=== PATIENT | female | born 1990 | race Caucasian/White ===

== ENCOUNTER 2023-08-17 04:10 | Emergency (ER) | payer OTHER, SELFPAY ==
[2023-08-17 04:11] VITALS: BP 135/87; PULSE 87; RESP 18; TEMP 36.2; O2SAT 98; BMI 29.2
--- NOTE | 2023-08-17 04:46 | EDS_ITS ---
HPI History of Present Illness Chief Complaint: Other, Pain/Inj Informant: patient Narrative Narrative: Patient is here with exacerbation of TMJ pain. She states over the last couple days she has been having more pain at her left TMJ. She has a history of this before. She uses a bite block but oftentimes it falls out of her mouth. She knows she has been grinding her teeth more the last few nights because she can just feel that. No other trauma injury or increased talking. Teeth are not really tender themselves. No swelling. No fevers or chills. No change in hearing. Patient states she did just increase her Zoloft dose. She knows that gives her a lot of bizarre dreams and she is thinking the dreams are causing her to chew her teeth more at night although she is not certain about that. She has a dentist appointment at 8:00 this morning which is only out 3 hours away. [facility] Medical History Depression TMJ (temporomandibular joint syndrome) Home Medications lorazepam 0.5 mg tablet 0.5 mg PO TID PRN PRN anxiety 08/17/23 [History Last Taken Unknown] naproxen 500 mg tablet (Naprosyn) 500 mg PO BID PRN pain #20 tabs 08/17/23 [Rx Last Taken Unknown] sertraline 50 mg tablet 50 mg PO DAILY 08/17/23 [History Last Taken Unknown] Allergy/AdvReac Type Severity Reaction Status Date / Time No Known Allergies Allergy Verified 08/17/23 04:16 Social History Smoking Status: Current every day smoker tobacco type: e-cigarettes ROS ROS ED Constitutional Constitutional ED: Denies chills or fever(s) Eyes Eyes: Denies change in vision ENT ENT ED: Reports other Details: See history of present illness. ; Denies ear pain, rhinorrhea or sore throat Cardiovascular Cardiovascular: Denies chest pain or palpitations Respiratory/Chest Respiratory/Chest: Denies cough or dyspnea Gastrointestinal Gastrointestinal: Denies nausea or vomiting Musculoskeletal Musculoskeletal: Denies neck pain Integumentary Denies abscess or rash Neurologic Neurologic: Denies headache(s), paresthesias or weakness Allergic/Immunologic Allergic/Immunologic ED: Denies urticaria EXAM Physical Exam Narrative Exam Narrative: General: Patient awake alert no acute distress. She is holding an ice pack to the left side of her cheek. HEENT: No visible swelling. No erythema. No rash. No vesicles. Auricle is normal. Tympanic membranes normal. No canal swelling. She does have tenderness to the left TMJ with some very mild palpable clicking. Teeth are not tender red or swollen. Neck is supple. No swelling mass or lymphadenopathy. Lungs are clear bilaterally and saturations are normal at 98% on room air showing no hypoxia. Heart is regular. I hear no murmur. Neurologically patient awake alert and appropriate. Skin: No rash noted. Const Vital Signs: 08/17/23 04:11 08/17/23 04:29 Temperature 97.2 F L Temperature Source Temporal Pulse Rate 87 Respiratory Rate 18 Respiratory Pattern Normal Blood Pressure 135/87 H Blood Pressure Mean 103 Pulse Ox 98 Oxygen Delivery Method Room Air MDM MDM MDM Narrative Medical decision making narrative: Patient has a history of TMJ. She is having symptoms consistent with this. We discussed avoiding chewing, gum, opening mouth widely, talking. She will talk to her dentist about a bite block that may stay in better. We discussed ice. We will get her started on nonsteroidals. Discharge Plan Triage Chief Complaint: Other, Pain/Inj ED Provider: Chito Almeida Dx/Rx/DC Orders Clinical Impression: TMJ tenderness, left Instructions: ED TMJ Syndrome Prescriptions: New naproxen [Naprosyn] 500 mg tablet 500 mg PO BID PRN (Reason: pain) Qty: 20 0RF No Action sertraline 50 mg tablet 50 mg PO DAILY Patient Comments: TAKE 1 TABLET BY MOUTH ONCE DAILY lorazepam 0.5 mg tablet 0.5 mg PO TID PRN PRN (Reason: anxiety) Patient Comments: TAKE 1 TABLET BY MOUTH THREE TIMES DAILY NEEDED FOR UP TO 7 DAYS Primary Care Provider: Percy Rhodes Referrals: Percy Rhodes MD [Primary Care Provider] - As Needed Activity Restrictions/Additional Instructions: Follow-up with your dental appointment as scheduled today Disposition Disposition: Home, Self Care
--- NOTE | 2023-08-17 05:18 | ED.RN ---
computer orders not crossing over, unable to scan meds naproxen 500mg given at 0515
--- NOTE | 2023-08-17 05:32 | ED.RN ---
prn norco 1 tab given per order. unable to scan med d/t the orders not crossing over to mar
[2023-08-17 05:34] VITALS: BP 115/90; PULSE 76; RESP 16; O2SAT 98
== END 2023-08-17 05:36 | disposition home or self-care (01) ==
PROVIDERS: Emergency Provider Emergency Medicine; PCP Family Medicine; Visit Provider Emergency Medicine
DX: M26.622 Arthralgia of left temporomandibular joint (principal); F17.290 Nicotine dependence, other tobacco product, uncomplicated
CPT/HCPCS: 99283

== ENCOUNTER 2025-06-14 05:31 | Inpatient (IN) | payer OTHER, SELFPAY ==
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
[2025-06-14] VITALS (20 sets, daily range): BP systolic 102–139; BP diastolic 66–96; PULSE 64–96; RESP 16–22; TEMP 36–36.6; O2SAT 95–100; BMI 36.4
--- OUTSIDE RECORDS SUMMARY | 2025-06-14 05:31 | XMS RPT_ITS | CCD ---
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 examination on: 01/30/2025 GA by U/S based upon: AC, BPD, Femur, HC GA by U/S 19 w + 6 d OLEG by U/S: 06/20/2025 Assigned: based on stated OLEG, selected on 01/30/2025 Assigned GA 19 w + 5 d Assigned OLEG: 06/21/2025 General Evaluation Cardiac activity present. FHR 146 bpm. movements: present. Presentation: cephalic Placenta: Placental site: anterior, fundal Umbilical cord: Cord vessels: 3 vessel cord Amniotic fluid: Amount of AF: normal amount. MVP 5.3 cm Growth Overview Exam date GA BPD (mm) HC (mm) AC (mm) FL (mm) HL (mm) EFW (g) 01/30/2025 19w 5d 46.3 62% 169.2 44% 154.2 74% 29.5 41% 30.5 67% 316 52% Biometry Standard BPD 46.3 mm 20w 0d 62% Hadlock OFD 59.8 mm 19w 3d 59% Nicolaides HC 169.2 mm 19w 4d 44% Landon Cerebellum tr 20.9 mm 19w 6d 75% Hill Nuchal fold 2.8 mm AC 154.2 mm 20w 4d 74% Hadlock Femur 29.5 mm 19w 2d 41% Landon Humerus 30.5 mm 20w 0d 67% Landon EFW 316 g 19w 5d 52% Hadlock EFW (lb) 0 lb EFW (oz) 11 oz EFW by: Hadlock (HC-AC-FL) Extended Insurance Auditor 5.9 mm CM 5.9 mm 79% Nicolaides Extremities / Bony Struc FL / HC 0.17 7% Hadlock Other Structures FHR 146 bpm Anatomy Cranium: normal Lateral ventricles: normal Choroid plexus: normal Midline falx: normal Cavum septi pellucidi: normal Cerebellum: normal Cisterna magna: normal Head / Neck Vermis: Normal but not required for a standard anatomy exam Neck: Normal but not required for a standard anatomy exam Nuchal fold: Normal but not required for a standard anatomy exam Lips: normal Profile: Normal but not required for a standard anatomy exam Nose: Normal but not required for a standard anatomy exam Face Maxilla: Normal but not required for a standard anatomy exam Mandible: Normal but not required for a standard anatomy exam Orbits: Normal but not required for a standard anatomy exam Lens: Normal but not required for a standard anatomy exam 4-chamber view: normal RVOT view: normal LVOT view: normal 3-vessel view: normal [id number] view: normal Heart / Thorax Situs: situs solitus (normal) Aortic arch view: Normal but not required for a standard anatomy exam SVC: Normal but not required for a standard anatomy exam IVC: Normal but not required for a standard anatomy exam Cardiac axis: normal Rt lung: Normal but not required for a standard anatomy exam Lt lung: Normal but not required for a standard anatomy exam Diaphragm: normal Cord insertion: normal Stomach: normal Kidneys: normal Bladder: normal Genitals: normal Abdomen Abdom. wall: normal Cervical spine: normal Thoracic spine: normal Lumbar spine: normal Sacral spine: normal Arms: normal Legs: normal Rt upper arm: normal Rt forearm: normal Rt hand: normal Rt fingers: normal Lt upper arm: normal Lt forearm: normal Lt hand: normal Lt fingers: normal Rt upper leg: normal Rt lower leg: normal Rt foot: normal Lt upper leg: normal Lt lower leg: normal Lt foot: normal sex: male Wants to know sex: yes Maternal Structures Uterus / Cervix Uterus: Visualized Cervix: Visualized Approach: Transabdominal Cervical length 34.5 mm Other: Patient declined transvaginal ultrasound for cervical length. Ovaries / Tubes / Adnexa Rt ovary: Visualized Lt ovary: Visualized Performed By: Humaira Berg, CINDY, RVT Read By: Sharona Avila M.D. MATERNAL MEDICINE [facility] Radiology Study observation (narrative) [facility] CARRIER SCREEN, STANDARDon 0 12-19-2024 CARRIER SCREEN RESULTS View results in Scanned Documents link when available. Normal [facility] Comment on above: Order Comment: Speci men Type: BLOOD SPECIMENOrdering Facility: [facility] Address: [address] [place] [address] Performed By: #### 6 30-4 #### [facility] CLIA [id number] [address] [place] [address] [place] CBC W Auto Differential pane l (Bld)on 12-19-2024 Basophils (Bld) [#/Vol] 0.03 10*3/uL Normal <0.11 [facility] Comment on above: Order Comment: Speci men Type: BLOOD SPECIMENOrdering Facility: [facility] Address: [address] [place] [address] Performed By: #### 5 7021-8 ####[facility] [id number] [place] [address] [place] Basophils/100 WBC (Bld) 0.4 % Normal [facility] Comment on above: Order Comment: Speci men Type: BLOOD SPECIMENOrdering Facility: [facility] Address: [address] [place] [address] Performed By: #### 5 7021-8 ####[facility] [id number] [place] [address] [place] Differential cell count method Nom (Bld) Auto Normal [facility] Comment on above: Order Comment: Speci men Type: BLOOD SPECIMENOrdering Facility: [facility] Address: [address] [place] [address] Performed By: #### 5 7021-8 ####[facility] [id number] [place] [address] [place] Eosinophils (Bld) [#/Vol] 0.07 10*3/uL Normal <0.46 [facility] Comment on above: Order Comment: Speci men Type: BLOOD SPECIMENOrdering Facility: [facility] Address: [address] [place] [address] Performed By: #### 5 7021-8 ####[facility]IA [id number] [place] [address] [place] Eosinophils/100 WBC (Bld) 0.9 % Normal [facility] Comment on above: Order Comment: Speci men Type: BLOOD SPECIMENOrdering Facility: [facility] Address: [address] [place] [address] Performed By: #### 5 7021-8 ####[facility] [id number] [place] [address] [place] Erythrocyte distribution width (RBC) [Ratio] 11.7 % Normal 11.5-15.0 [facility] Comment on above: Order Comment: Speci men Type: BLOOD SPECIMENOrdering Facility: [facility] Address: [address] [place] [address] Performed By: #### 5 7021-8 ####[facility]IA [id number] [place] [id number] [place] Hematocrit (Bld) [Volume fraction] 35.8 % Low 36.0-46.0 [facility] Comment on above: Order Comment: Speci men Type: BLOOD SPECIMENOrdering Facility: [facility] Address: [address] [place] [address] Performed By: #### 5 7021-8 ####[facility]IA [id number] [address] [address] [place] Hemoglobin (Bld) [Mass/Vol] 12.5 g/dL Normal 11.5-15.5 [facility] Comment on above: Order Comment: Speci men Type: BLOOD SPECIMENOrdering Facility: [facility] Address: [address] [place] [address] Performed By: #### 5 7021-8 ####[facility] [id number] [place] [address] [place] Immature granulocytes (Bld) [#/Vol] 0.03 10*3/uL Normal <0.10 [facility] Comment on above: Order Comment: Speci men Type: BLOOD SPECIMENOrdering Facility: [facility] Address: [address] [place] [address] Performed By: #### 5 7021-8 ####[facility] [id number] [place] [address] [place] Immature granulocytes/100 WBC (Bld) 0.4 % Normal [facility] Comment on above: Order Comment: Speci men Type: BLOOD SPECIMENOrdering Facility: [facility] Address: [address] [place] [address] Performed By: #### 5 7021-8 ####[facility] [id number] [place] [address] [place] Lymphocytes (Bld) [#/Vol] 1.60 10*3/uL Normal 1.00-4.00 [facility] Comment on above: Order Comment: Speci men Type: BLOOD SPECIMENOrdering Facility: [facility] Address: [address] [place] [address] Performed By: #### 5 7021-8 ####[facility]CLIA [id number] [place] [id number] [place] Lymphocytes/100 WBC (Bld) 19.7 % Normal [facility] Comment on above: Order Comment: Speci men Type: BLOOD SPECIMENOrdering Facility: [facility] Address: [address] [place] [address] Performed By: #### 5 7021-8 ####[facility] [id number] [place] [address] [place] MCH (RBC) [Entitic mass] 31.2 pg Normal 26.0-34.0 [facility] Comment on above: Order Comment: Speci men Type: BLOOD SPECIMENOrdering Facility: [facility] Address: [address] [place] [address] Performed By: #### 5 7021-8 ####[facility] [id number] [place] [address] [place] MCHC (RBC) [Mass/Vol] 34.9 g/dL Normal 30.5-36.0 [facility] Comment on above: Order Comment: Speci men Type: BLOOD SPECIMENOrdering Facility: [facility] Address: [address] [place] [address] Performed By: #### 5 7021-8 ####[facility] [id number] [place] [address] [place] MCV (RBC) [Entitic vol] 89.3 fL Normal 80.0-100.0 [facility] Comment on above: Order Comment: Speci men Type: BLOOD SPECIMENOrdering Facility: [facility] Address: [address] [place] [address] Performed By: #### 5 7021-8 ####[facility] [id number] [place] [address] [place] Monocytes (Bld) [#/Vol] 0.47 10*3/uL Normal <0.87 [facility] Comment on above: Order Comment: Speci men Type: BLOOD SPECIMENOrdering Facility: [facility] Address: [address] [place] [address] Performed By: #### 5 7021-8 ####[facility]CLIA [id number] [address], [place] [address] [place] Monocytes/100 WBC (Bld) 5.8 % Normal [facility] Comment on above: Order Comment: Speci men Type: BLOOD SPECIMENOrdering Facility: [facility] Address: [address] [place] [address] Performed By: #### 5 7021-8 ####[facility]IA [id number] [address], [place] [address] [place] Neutrophils (Bld) [#/Vol] 5.94 10*3/uL Normal 1.45-7.50 [facility] Comment on above: Order Comment: Speci men Type: BLOOD SPECIMENOrdering Facility: [facility] Address: [address] [place] [address] Performed By: #### 5 7021-8 ####[facility]IA [id number] [place] [address] [place] Neutrophils/100 WBC (Bld) 72.8 % Normal [facility] Comment on above: Order Comment: Speci men Type: BLOOD SPECIMENOrdering Facility: [facility] Address: [address] [place] [address] Performed By: #### 5 7021-8 ####[facility]IA [id number] [place] [address] [place] Nucleated RBC (Bld) [#/Vol] 10*3/uL Normal <0.01 [facility] Comment on above: Order Comment: Speci men Type: BLOOD SPECIMENOrdering Facility: [facility] Address: [address] [place] [address] Performed By: #### 5 7021-8 ####[facility]CLIA [id number] [address], [facility] [place] Nucleated RBC/100 WBC (Bld) [Ratio] 0.0 /100 WBC Normal [facility] Comment on above: Order Comment: Speci men Type: BLOOD SPECIMENOrdering Facility: [facility] Address: [address] [place] [address] Performed By: #### 5 7021-8 ####[facility]IA [id number] [address] [address] [place] Platelet mean volume (Bld) [Entitic vol] 11.3 fL Normal 9.0-12.7 [facility] Comment on above: Order Comment: Speci men Type: BLOOD SPECIMENOrdering Facility: [facility] Address: [address] [place] [address] Performed By: #### 5 7021-8 ####[facility]IA [id number] [place] [address] [place] Platelets (Bld) [#/Vol] 293 10*3/uL Normal 150-400 [facility] Comment on above: Order Comment: Speci men Type: BLOOD SPECIMENOrdering Facility: [facility] Address: [address] [place] [address] Performed By: #### 5 7021-8 ####[facility]IA [id number] [place] [address] [place] RBC (Bld) [#/Vol] 4.01 10*6/uL Normal 3.90-5.20 [facility] Comment on above: Order Comment: Speci men Type: BLOOD SPECIMENOrdering Facility: [facility] Address: [address] [place] [address] Performed By: #### 5 7021-8 ####[facility]IA [id number] [place] [address] [place] WBC (Bld) [#/Vol] 8.14 10*3/uL Normal 3.70-11.00 [facility] Comment on above: Order Comment: Speci men Type: BLOOD SPECIMENOrdering Facility: [facility] Address: [address] [place] [address] Performed By: #### 5 7021-8 ####[facility]CL[facility] [id number] [place] [address] [place] [facility] Comprehensive metabolic 2000 panelon 12-19-2024 Albumin [Mass/Vol] 4.1 g/dL Normal 3.9-4.9 [facility] Comment on above: Order Comment: Speci men Type: BLOOD SPECIMENOrdering Facility: [facility] Address: [address] [place] [address] Performed By: #### 6 30-4 #### [facility] CLIA [id number] [address] [place] [address] [place] ALP [Catalytic activity/Vol] 131 U/L High 34-123 [facility] Comment on above: Order Comment: Speci men Type: BLOOD SPECIMENOrdering Facility: [facility] Address: [address] [place] [address] Performed By: #### 6 30-4 #### [facility] CLIA [id number] [address] [place] [address] [place] ALT [Catalytic activity/Vol] 80 U/L High 7-38 [facility] Comment on above: Order Comment: Speci men Type: BLOOD SPECIMENOrdering Facility: [facility] Address: [address] [place] [address] Performed By: #### 6 30-4 #### [facility] CLIA [id number] [address] [place] [address] [place] Anion gap [Moles/Vol] 8 mmol/L Normal 8-15 [facility] Comment on above: Order Comment: Speci men Type: BLOOD SPECIMENOrdering Facility: [facility] Address: [address] [place] [address] Performed By: #### 6 30-4 #### [facility] CLIA [id number] [address] [place] [address] [place] AST [Catalytic activity/Vol] 63 U/L High 13-35 [facility] Comment on above: Order Comment: Speci men Type: BLOOD SPECIMENOrdering Facility: [facility] Address: [address] [place] [address] Performed By: #### 6 30-4 #### [facility] CLIA [id number] [address] [place] [address] [place] Bilirubin [Mass/Vol] 0.3 mg/dL Normal 0.2-1.3 [facility] Comment on above: Order Comment: Speci men Type: BLOOD SPECIMENOrdering Facility: [facility] Address: [address] [place] [address] Performed By: #### 6 30-4 #### [facility] CLIA [id number] [address] [place] [address] [place] Calcium [Mass/Vol] 9.4 mg/dL Normal 8.5-10.2 [facility] Comment on above: Order Comment: Speci men Type: BLOOD SPECIMENOrdering Facility: [facility] Address: [address] [place] [address] Performed By: #### 6 30-4 #### [facility] CLIA [id number] [address] [place] [address] [place] Chloride [Moles/Vol] 100 mmol/L Normal 98-107 [facility] Comment on above: Order Comment: Speci men Type: BLOOD SPECIMENOrdering Facility: [facility] Address: [address] [place] [address] Performed By: #### 6 30-4 #### [facility] CLIA [id number] [address] [place] [address] [place] CO2 [Moles/Vol] 24 mmol/L Normal 22-30 [facility] Comment on above: Order Comment: Speci men Type: BLOOD SPECIMENOrdering Facility: [facility] Address: [address] [place] [address] Performed By: #### 6 30-4 #### [facility] CLIA [id number] [address] [place] [address] [place] Creatinine [Mass/Vol] 0.63 mg/dL Normal 0.58-0.96 [facility] Comment on above: Order Comment: Kirk men Type: BLOOD SPECIMENOrdering Facility: [facility] Address: [address] [place] [address] Performed By: #### 6 30-4 #### [facility] CLIA [id number] [address] [place] [address] [place] Creatinine and Glomerular filtration rate.predicted panel (S/P/Bld) 120 mL/min/1.73m??? Normal >=60 [facility] Comment on above: Order Comment: Kirk arellano Type: BLOOD SPECIMENOrdering Facility: [facility] Address: [address] [place] [address] Result Comment: Eileen mated Glomerular Filtration Rate (eGFR) is calculated using the 2020 CKD-EPI creatinine equation. This equation utilizes serum creatinine, sex, and age as parameters. The creatinine assay has traceable calibration to isotope dilution-mass spectrometry. Refer to KDIGO guidelines for clinical interpretation. In patients with unstable renal function, e.g. those with acute kidney injury, the eGFR may not accurately reflect actual GFR. Performed By: #### 6 30-4 #### [facility] CLIA [id number] [address] [place] [address] [place] Glucose [Mass/Vol] 106 mg/dL High 74-99 [facility] Comment on above: Order Comment: Carlosi men Type: BLOOD SPECIMENOrdering Facility: [facility] Address: [address] [place] [address] Result Comment: The [place] Diabetes [employer] (ADA) provides guidance for cutoff values for fasting glucose and random glucose. The ADA defines fasting as no caloric intake for at least 8 hours. Fasting plasma glucose results between 100 to 125 mg/dL indicate increased risk for diabetes (prediabetes). Fasting plasma glucose results greater than or equal to 126 mg/dL meet the criteria for diagnosis of diabetes. In the absence of unequivocal hyperglycemia, results should be confirmed by repeat testing. In a patient with classic symptoms of hyperglycemia or hyperglycemic crisis, random plasma glucose results greater than or equal to 200 mg/dL meet the criteria for diagnosis of diabetes. Reference: Standards of Medical Care in Diabetes 2016, [place] [employer]. Diabetes Care. 2016.39(Suppl 1). Performed By: #### 6 30-4 #### [facility] CLIA [id number] [address] [place] [address] [place] Potassium [Moles/Vol] 3.7 mmol/L Normal 3.7-5.1 [facility] Comment on above: Order Comment: Speci men Type: BLOOD SPECIMENOrdering Facility: [facility] Address: [address] [place] [address] Performed By: #### 6 30-4 #### [facility] CLIA [id number] [address] [place] [address] [place] Protein [Mass/Vol] 7.4 g/dL Normal 6.3-8.0 [facility] Comment on above: Order Comment: Speci men Type: BLOOD SPECIMENOrdering Facility: [facility] Address: [address] [place] [address] Performed By: #### 6 30-4 #### [facility] CLIA [id number] [address] [place] [address] [place] Sodium [Moles/Vol] 132 mmol/L Low 136-144 [facility] Comment on above: Order Comment: Speci men Type: BLOOD SPECIMENOrdering Facility: [facility] Address: [address] [place] [address] Performed By: #### 6 30-4 #### [facility] CLIA [id number] [address] [place] [address] [place] Urea nitrogen [Mass/Vol] 7 mg/dL Normal 7-21 [facility] Comment on above: Order Comment: Speci men Type: BLOOD SPECIMENOrdering Facility: [facility] Address: [address] [place] [address] Performed By: #### 6 30-4 #### [facility] CLIA [id number] [address] [place] [address] [place] HBV surface Ag Ser Qlon 11-28 HBV surface Ag Ql (S) Negative Normal Negative [facility] Comment on above: Order Comment: Speci men Type: BLOOD SPECIMENOrdering Facility: [facility] Address: [address] [place] [address] Performed By: #### 6 30-4 #### [facility] CLIA [id number] [address] [place] [address] [place] HCV Ab Ser Qlon 12-19-2024 HCV Ab Ql (S) Negative Normal Negative [facility] Comment on above: Order Comment: Speci men Type: BLOOD SPECIMENOrdering Facility: [facility] Address: [address] [place] [address] Result Comment: The result suggests no evidence of infection with Hepatitis C virus. Should recent infection be suspected, repeat testing may be considered 4-6 weeks after this draw. Performed By: #### 1 6128-1 ####[facility] [id number] [place] [address] [place] HIV 1+2 Ab IA Qlon HIV 1 and 2 Ab IA.rapid Nom (S/P/Bld) Normal [facility] Comment on above: Order Comment: Speci men Type: BLOOD SPECIMENOrdering Facility: [facility] Address: [address] [place] [address] Result Comment: Test not indicated. Performed By: #### 6 30-4 #### [facility] CLIA [id number] [address] [place] [address] [place] HIV 1+2 Ab+HIV1 p24 Ag IA Ql Non-Reactive Normal Nonreactive [facility] Comment on above: Order Comment: Speci men Type: BLOOD SPECIMENOrdering Facility: [facility] Address: [address] [place] [address] Performed By: #### 6 30-4 #### [facility] CLIA [id number] [address] [place] [address] [place] HIV immunoassay testing algorithm interpretation (S/P/Bld) [Interp] Normal [facility] Comment on above: Order Comment: Speci men Type: BLOOD SPECIMENOrdering Facility: [facility] Address: [address] [place] [address] Result Comment: No e vidence of HIV-1 or HIV-2 infection. Should recent infection be suspected, repeat testing may be considered 2-3 weeks after this draw. [place] Rev. Code 3701.243(E): This information has been disclosed to you from confidential records protected from disclosure by state law. ???You shall make no further disclosure of this information without the specific, written, and informed release of the individual to whom it pertains or as otherwise permitted by state law. A general authorization for the release of medical or other information is not sufficient for the purpose of the release of HIV test results or diagnoses. Performed By: #### 6 30-4 #### [facility] CLIA [id number] [address] [place] [address] [place] HbA1c (Bld)on 12-19-2024 Average glucose Estimated from glycated hemoglobin (Bld) [Mass/Vol] 71 mg/dL Normal [facility] Comment on above: Order Comment: Speci men Type: BLOOD SPECIMENOrdering Facility: [facility] Address: [address] [place] [address] Result Comment: eAG: (Estimated average glucose) is a calculated value from HgbA1c and is technical sales representatives of the average blood glucose level in the last 2-3 month period. Performed By: #### 5 5454-3 ####[facility] [id number] [place] [address] [place] HbA1c (Bld) [Mass fraction] 4.1 % Low 4.3-5.6 [facility] Comment on above: Order Comment: Speci men Type: BLOOD SPECIMENOrdering Facility: [facility] Address: [address] [place] [address] Result Comment: [place] Diabetes Association guidelines indicate that patients with HgbA1c in the range 5.7-6.4% are at increased risk for development of diabetes, and intervention by lifestyle modification may be beneficial. HgbA1c greater or equal to 6.5% is considered diagnostic of diabetes. Performed By: #### 5 5454-3 ####[facility] [id number] [place] [address] [place] [id number] PLUSon 12-19-2024 Cell-free DNA./Cell-free DNA.total Dosage of chromosome-specific cfDNA (cfDNA) [Molar fraction] 9% Normal [facility] Comment on above: Order Comment: Speci men Type: BLOOD SPECIMENOrdering Facility: [facility] Address: [address] [place] [address] Performed By: #### 6 30-4 #### [facility] CLIA [id number] [address] [place] [address] [place] Chr 13+18+21+X+Y aneuploidy Dosage of chromosome-specific cfDNA Ql (cfDNA) Negative Normal [facility] Comment on above: Order Comment: Speci men Type: BLOOD SPECIMENOrdering Facility: [facility] Address: [address] [place] [address] Performed By: #### 6 30-4 #### [facility] CLIA [id number] [address] [place] [address] [place] Chr 21 trisomy Dosage of chromosome-specific cfDNA Ql (cfDNA) Negative Normal [facility] Comment on above: Order Comment: Speci men Type: BLOOD SPECIMENOrdering Facility: [facility] Address: [address] [place] [address] Performed By: #### 6 30-4 #### [facility] CLIA [id number] [address] [place] [address] [place] Chr X and Y aneuploidy risk Sequencing Ql (cfDNA) [Interp] Not detected Normal [facility] Comment on above: Order Comment: Speci men Type: BLOOD SPECIMENOrdering Facility: [facility] Address: [address] [place] [address] Result Comment: Not Detected Not Detected Performed By: #### 6 30-4 #### [facility] CLIA [id number] [address] [place] [address] [place] Citation Cameron (Reference lab test) Comment Normal [facility] Comment on above: Order Comment: Speci men Type: BLOOD SPECIMENOrdering Facility: [facility] Address: [address] [place] [address] Result Comment: 1. P spenser HEARD et al. Marixa Med. 2012;14(3):296-305. 2. Alok VALLADARES et al. Prenat Diag. 2013;33(6):591-597. 3. Pablo C, et al. Clin Chem. 2015 Apr;61(4):608-616. 4. Rocio HEARD, et al. [place]a Med. 2011;13(11):913-920. 5. ACOG/SMFM Practice Bulletin No. 226, May 2020. Performed By: #### 6 30-4 #### [facility] CLIA [id number] [address] [place] [address] [place] Gestational age Estimated from conception date Daly Normal [facility] Comment on above: Order Comment: Speci men Type: BLOOD SPECIMENOrdering Facility: [facility] Address: [address] [place] [address] Performed By: #### 6 30-4 #### [facility] CLIA [id number] [address] [place] [address] OF [place] GESTATIONALAGE AGE > OR = 9W Yes Normal [facility] Comment on above: Order Comment: Speci men Type: BLOOD SPECIMENOrdering Facility: [facility] Address: [address] [place] [address] Performed By: #### 6 30-4 #### [facility] CLIA [id number] [address] [place] [address] Laboratory comment Cameron (Report) Comment Normal [facility] Comment on above: Order Comment: Specarmando arellano Type: BLOOD SPECIMENOrdering Facility: [facility] Address: [address] [place] [address] Result Comment: The MaterniT(R) 21 PLUS laboratory-developed test (LDT) analyzes circulating cell-free DNA from a maternal blood sample. This test is used for screening purposes and not diagnostic. Clinical correlation is recommended. Validation data on twin pregnancies is limited and the ability of this test to detect aneuploidy in higher multiple gestations has not yet been validated. Performed By: #### 6 30-4 #### [facility] CLIA [id number] [address] [place] [address] co founder and director name Nom (Provider) Comment Normal [facility] Comment on above: Order Comment: Kirk arellano Type: BLOOD SPECIMENOrdering Facility: [facility] Address: [address] [place] [address] Result Comment: This specimen showed an expected representation of chromosome 21, 18 and 13 material. Clinical correlation is suggested. Comment Thomas Concepcion MD, PhD, Director, [facility] Performed By: #### 6 30-4 #### [facility] CLIA [id number] [address] [place] [address] LIMITATIONS OF THE TEST Comment Normal [facility] Comment on above: Order Comment: Kirk arellano Type: BLOOD SPECIMENOrdering Facility: [facility] Address: [address] [place] [address] Result Comment: Jv peña the results of these tests are highly reliable, discordant results, including inaccurate sex prediction, may occur due to placental, maternal, or mosaicism or neoplasm; vanishing twin; prior maternal organ transplant; or other causes. These tests are screening tests and not diagnostic; they do not replace the accuracy and precision of diagnosis with CVS or amniocentesis. A patient with a positive test result should be referred for genetic counseling and offered invasive diagnosis for confirmation of test results.[5] The results of this testing, including the benefits and limitations, should be discussed with a qualified healthcare provider. management decisions, including termination of the , should not be based on the results of these tests alone. The healthcare provider is responsible for the use of this information in the management of their patient. Sex chromosomal aneuploidies are not reportable for known multiple gestations. A negative result does not ensure an unaffected nor does it exclude the possibility of other chromosomal abnormalities or defects which are not a part of these tests. An uninformative result may be reported, the causes of which may include, but are not limited to, insufficient sequencing coverage, noise or artifacts in the region, amplification or sequencing bias, or insufficient fraction. These tests are not intended to identify pregnancies at risk for neural tube defects or ventral wall defects. Testing for whole chromosome abnormalities (including sex chromosomes) and for subchromosomal abnormalities could lead to the potential discovery of both and maternal genomic abnormalities that could have major, minor, or no, clinical significance. Evaluating the significance of a positive or a non-reportable result may involve both invasive testing and additional studies on the mother. Such investigations may lead to a diagnosis of maternal chromosomal or subchromosomal abnormalities, which on occasion may be associated with benign or malignant maternal neoplasms. These tests may not accurately identify triploidy, balanced rearrangements, or the precise location of subchromosomal duplications or deletions; these may be detected by diagnosis with CVS or amniocentesis. The ability to report results may be impacted by maternal BMI, maternal weight, maternal systemic lupus erythematosus (SLE) and/or by certain pharmaceutical agents such as low molecular weight heparin (for example: Lovenox(R), Xaparin(R), Clexane(R) and Fragmin(R)). Performed By: #### 6 30-4 #### [facility] CLIA [id number] [address] [place] [address] [place] Monosomy X risk Dosage of chromosome-specific cfDNA Ql (Plasma cell-free+WBC DNA) [Interp] Not detected Normal [facility] Comment on above: Order Comment: Speci men Type: BLOOD SPECIMENOrdering Facility: [facility] Address: [address] [place] [address] Performed By: #### 6 30-4 #### [facility] CLIA [id number] [address] [place] [address] NEGATIVE PREDICTIVE VALUE Note Normal [facility] Comment on above: Order Comment: Speci men Type: BLOOD SPECIMENOrdering Facility: [facility] Address: [address] [place] [address] Result Comment: The Negative Predictive Value (NPV) for trisomy 21, 18, and 13 is greater than 99%. The NPV for SCA and ESS cannot be calculated as SCA and ESS are only reported when an abnormality is detected. Performed By: #### 6 30-4 #### [facility] CLIA [id number] [address] [place] [address] OF [place] PERFORMANCE CHARACTERISTICS Note Normal [facility] Comment on above: Order Comment: Speci men Type: BLOOD SPECIMENOrdering Facility: [facility] Address: [address] [place] [address] Result Comment: ! Sex ! Accuracy: 99.4% ! ! ! ! Region (associated syndrome) ! Est. Sens# ! Est. Spec ! ! ! ! Trisomy 21 (Down Syndrome) ! 99.1% ! 99.9% ! ! ! ! Trisomy 18 (Courtney Syndrome) ! >99.9% ! 99.6% ! ! ! ! Trisomy 13 (Patau Syndrome) ! 91.7% ! 99.7% ! ! ! ! Sex Chromosome Aneuploidies## ! 96.2% ! 99.7% ! ! ! * As reported in [facility] database nstd37 [https://www.ncbi.nlm.nih.gov/dbvar/studies/nstd37/ ] # Estimated Sensitivity. Sensitivity estimated across the observed size distribution of each syndrome [per ISCA database nstd37] and across the range of fractions observed in routine clinical NIPT. Actual sensitivity can also be influenced by other factors such as the size of the event, total sequence counts, amplification bias, or sequence bias. ## Daly gestation only. Performed By: #### 6 - #### [facility] CLIA [id number] [address] [place] [address] [place] POSITIVE PREDICTIVE VALUE N/A Normal [facility] Comment on above: Order Comment: Speci men Type: BLOOD SPECIMENOrdering Facility: [facility] Address: [address] [place] [address] Performed By: #### 6 - #### [facility] CLIA [id number] [address] [place] [address] [place] Reference Lab Test Method Comment Normal [facility] Comment on above: Order Comment: Speci men Type: BLOOD SPECIMENOrdering Facility: [facility] Address: [address] [place] [address] Result Comment: See Notes Circulating cell-free DNA was purified from the plasma component of maternal blood. The extracted DNA was then converted into a genomic DNA library for aneuploidy analysis of chromosomes 21, 18, and 13 via next generation sequencing.[1] Optional findings based on the test order include sex chromosome aneuploidy (SCA)[2], and enhanced sequencing series (ESS)[3], which will only be reported on as an additional finding when an abnormality is detected. SCA testing includes information on X and Y representation, while ESS testing includes deletions in selected regions (22q, 15q, 11q, 8q, 5p, 4p, 1p) and trisomy of chromosomes 16 and 22. Performed By: #### 6 30-4 #### [facility] CLIA [id number] [address] [place] [address] [place] Service comment (Unsp spec) [Interp] Comment Normal [facility] Comment on above: Order Comment: Speci men Type: BLOOD SPECIMENOrdering Facility: [facility] Address: [address] [place] [address] Result Comment: See Notes [employer] is a subsidiary of [employer], using the brand [employer]. This test was developed and its performance characteristics determined by [employer]. It has not been cleared or approved by the Food and Drug Administration. This laboratory is certified under the Clinical Laboratory Improvement Amendments (CLIA) as qualified to perform high complexity clinical laboratory testing and accredited by the College of [employer]ames[employer] (CAP). If there is future clinical need for adding MaterniT GENOME testing, this specimen will be available until term. [facility] samples will not be retained beyond 60 days. [facility] patients will have to send a new sample for re-sequencing ([facility] Test Code: 529719). Performed By: #### 6 30-4 #### [facility] CLIA [id number] [address] [place] [address] [place] Sex Dosage of chromosome-specific cfDNA Nom (cfDNA) Comment Normal [facility] Comment on above: Order Comment: Speci men Type: BLOOD SPECIMENOrdering Facility: [facility] Address: [address] [place] [address] Result Comment: Cons istent with Male Performed By: #### 6 30-4 #### [facility] CLIA [id number] [address] [place] [address] [place] Test performance information Cameron (Unsp spec) Comment Normal [facility] Comment on above: Order Comment: Speci men Type: BLOOD SPECIMENOrdering Facility: [facility] Address: [address] [place] [address] Result Comment: The performance characteristics of the MaterniT(R) 21 PLUS laboratory-developed test (LDT) have been determined in a clinical validation study with women at increased risk for chromosomal aneuploidy.[1-4] Performed By: #### 6 30-4 #### [facility] CLIA [id number] [address] [place] [address] [place] Trisomy 13 risk Dosage of chromosome-specific cfDNA Ql (cfDNA) [Interp] Negative Normal [facility] Comment on above: Order Comment: Speci men Type: BLOOD SPECIMENOrdering Facility: [facility] Address: [address] [place] [address] Performed By: #### 6 30-4 #### [facility] CLIA [id number] [address] [place] [address] [place] Trisomy 18 risk Dosage of chromosome-specific cfDNA Ql (Plasma cell-free+WBC DNA) [Interp] Negative Normal [facility] Comment on above: Order Comment: Speci men Type: BLOOD SPECIMENOrdering Facility: [facility] Address: [address] [place] [address] Performed By: #### 6 30-4 #### [facility] CLIA [id number] [address] [place] [address] [place] Prot/Creat Uron 12-19-2024 Protein/Creatinine (U) [Mass ratio] 0.09 mg/mg Normal <0.15 [facility] Comment on above: Order Comment: Speci men Type: URINE SPECIMENOrdering Facility: [facility] Address: [address] [place] [address] Result Comment: Adul t Proteinuria Categories: <0.15 mg/mg is considered normal to mildly increased 0.15 - 0.50 mg/mg is considered moderately increased >0.50 mg/mg is considered severely increased KDIGO. (2013). KDIGO 2012 Clinical Practice Guideline for the Evaluation and Management of Chronic Kidney Disease. Official Journal of the International Society of Nephrology, 3(1), 1-150. Performed By: #### 2 890-2 ####[facility] [id number] [place] [address] [place] Protein/Creatinine (U) [Mass ratio]on 12-19-2024 Creatinine (U) [Mass/Vol] 142.1 mg/dL Normal 20.0-300.0 [facility] Comment on above: Order Comment: Speci men Type: URINE SPECIMENOrdering Facility: [facility] Address: [address] [place] [address] Performed By: #### 2 890-2 ####[facility] [id number] [place] [address] [place] Protein (U) [Mass/Vol] 13 mg/dL Normal 0-20 [facility] Comment on above: Order Comment: Speci men Type: URINE SPECIMENOrdering Facility: [facility] Address: [address] [place] [address] Performed By: #### 2 890-2 ####[facility] [id number] [place] [id number] [place] RUBELLA IGG ANTIBODYon 12-19 RUBELLA IGG AB, QUAL Positive Normal Positive [facility] Comment on above: Order Comment: Speci men Type: BLOOD SPECIMENOrdering Facility: [facility] Address: [address] [place] [address] Result Comment: The result suggests recent or past exposure to Rubella virus or history of Rubella vaccination. Positive result may also be seen due to presence of passively-transferred antibodies. Please correlate with patient's history. Performed By: #### R UBIGG ####[facility] [id number] [place] [address] [place] Reagin and Treponema pallidu m IgG and IgM [Interp]on 12-19-2024 T. pallidum IgG+IgM IA Ql (S) Non-Reactive Normal Nonreactive [facility] Comment on above: Order Comment: Speci men Type: BLOOD SPECIMENOrdering Facility: [facility] Address: [address] [place] [address] Performed By: #### 6 30-4 #### [facility] CLIA [id number] [address] [place] [address] [place] Reagin+T pallidum IgG+IgM Se rPl-Impon 12-19-2024 Reagin and Treponema pallidum IgG and IgM [Interp] Cannot exclude recent Treponemal infection if specimen collected within 7-10 days after appearance of suspect lesions or 2-3 weeks after an exposure. Clinical correlation is required. Normal [facility] Comment on above: Order Comment: Speci men Type: BLOOD SPECIMENOrdering Facility: [facility] Address: [address] [place] [address] Performed By: #### 6 30-4 #### [facility] CLIA [id number] [address] [place] [address] [place] TSH SerPl-aCncon 12-19-2024 TSH Qn 0.539 m[IU]/L Normal 0.270-4.200 [facility] Comment on above: Order Comment: Speci men Type: BLOOD SPECIMENOrdering Facility: [facility] Address: [address] [place] [address] Result Comment: If t he patient is , TSH reference range varies by gestational period: First Trimester (weeks 9-12): 0.180-2.990 mIU/L Second Trimester: 0.110-3.980 mIU/L Third Trimester: 0.480-4.710 mIU/L Toby Gregory et al. A Practical Approach for the Verifications and Determination of Site- and Trimester-Specific Reference Intervals for Thyroid Function tests in . Thyroid, 2019:29:3:412-420. Danny Peña, et al. 2017 Guidelines of the [place] Thyroid Association for the Diagnosis and Management of Thyroid Disease during and the . Thyroid, 2017:27:3:315-389. Performed By: #### 3 016-3 ####[facility] [id number] [address] OF [place] TYPE + SCREEN PRENATALon ABO O Normal [facility] Comment on above: Order Comment: Speci men Type: BLOOD SPECIMENOrdering Facility: [facility] Address: [address] [place] [address] Performed By: #### T SPN ####[facility] [id number] [place] [address] [place] Rh Nom (Bld) Positive Normal [facility] Comment on above: Order Comment: Speci men Type: BLOOD SPECIMENOrdering Facility: [facility] Address: [address] [place] [address] Performed By: #### T SPN ####[facility] [id number] [place] [address] [place] TYPE AND SCREEN EXPIRATION 12/22/2024 23:59 Normal [facility] Comment on above: Order Comment: Speci men Type: BLOOD SPECIMENOrdering Facility: [facility] Address: [address] [place] [address] Performed By: #### T SPN ####[facility] [id number] [place] [id number] [place] Examination level ultrasound on 12-10-2024 Indication First trimester anatomic survey Impression REMOTE READ The patient is referred for a first trimester anatomy scan including nuchal translucency measurement as clinically indicated. - Single, live, intrauterine . - Vayas rump length measurement is consistent with the established gestational age. - A qualitative screen of the nuchal translucency and other anatomic structures was unremarkable on a complete first trimester anatomic assessment. - Not all structural malformations can be detected by ultrasound examination. Recommendations Return for anatomy ultrasound Maternal Assessment Height 160 cm Height (ft) 5 ft Height (in) 3 in Physical Exam Initial weight (lb) 160 lb Initial BMI 28.34 kg/m Method Transabdominal ultrasound examination Daly . Number of fetuses: 1 Dating LMP on: 09/14/2024 GA by LMP 12 w + 3 d OLEG by LMP: 06/21/2025 Ultrasound examination on: 12/10/2024 GA by U/S based upon: CRL GA by U/S 12 w + 4 d OLEG by U/S: 06/20/2025 Assigned: based on the LMP, selected on 11/07/2024 Assigned GA 12 w + 3 d Assigned OLEG: 06/21/2025 General Evaluation Cardiac activity present Placenta: anterior Cord vessels: 3 vessel cord Amniotic fluid: normal amount Biometry Standard FHR 161 bpm CRL 60.8 mm 12w 4d 46% Hadlock First Trimester Anatomy Calvarium: normal Falx cerebri: normal Choroid plexus: normal Profile: normal Nasal bone: normal Retronasal triangle: normal Maxilla: normal Mandible: normal Nuchal translucency: Unremarkable Situs: normal Cardiac position: normal Cardiac axis: normal 4-chamber view: normal 4-chamber view with color: suboptimal 5-vipzgz-[id number] view: normal Abdominal cord insertion: normal Stomach: normal Kidneys: suboptimal Color doppler of renal vessels: normal Bladder: normal Color doppler of perivesical umbilical arteries: normal Vertebral alignment: suboptimal Arms: normal Hands: normal Legs: normal Feet: normal Maternal Structures Uterus / Cervix Uterus: Visualized Ovaries / Tubes / Adnexa Rt ovary: Visualized Lt ovary: Visualized Performed By: Danuta Garcia RDMS Read By: Sharona Avila M.D. MATERNAL MEDICINE [facility] Radiology Study observation (narrative) [facility] CNCOon 11-20-2024 CNCO Letter Text Normal [facility] 36on 11-08-2024 36 Patient appointment 11/09 cancelled Due to OON- Called patient and she stated that she has secured another OB that for sure takes Her insurance. Normal [facility] SHS Bacteria Ur Culton Bacteria identified Cx Nom (U) ORGANISM ID: 1 10,000 -<50,000 CFU/ml Normal urogenital yvonne Normal [facility] Comment on above: Performed By: #### 6 30-4 #### [facility] CLIA [id number] [address] [place] [address] [place] C. trachomatis+N. gonorrhoea e DNA NAYELI+probe Ql (Unsp spec)on 11-07-2024 C. trachomatis rRNA NAYELI+probe Ql (Unsp spec) Not detected Normal Not detected [facility] Comment on above: Order Comment: Speci men Type: SWABOrdering Facility: [facility] Address: [address] [place] [address] Performed By: #### 3 6902-5, TRVAMP ####[facility] LABCLIA [id number] [place] [address] [place] N. gonorrhoeae rRNA NAYELI+probe Ql (Unsp spec) Not detected Normal Not detected [facility] Comment on above: Order Comment: Speci men Type: SWABOrdering Facility: [facility] Address: [address] [place] [address] Performed By: #### 3 6902-5, TRVAMP ####[facility]IA [id number] [place] [address] [place] HIGH RISK HUMAN PAPILLOMA CHANO (HPV), PCR FOR DETECTION AND GENOTYPINGon 11-07-2024 HPV 16 Ag Ql (Unsp spec) Not detected Normal Not detected [facility] Comment on above: Order Comment: Speci men Type: FLUID SPECIMENOrdering Facility: [facility] Address: [address] [place] [address] Performed By: #### 6 30-4 #### [facility] CLIA [id number] [address] [place] [address] [place] HPV 18 Ag Ql (Unsp spec) Not detected Normal Not detected [facility] Comment on above: Order Comment: Speci men Type: FLUID SPECIMENOrdering Facility: [facility] Address: [address] [place] [address] Performed By: #### 6 30-4 #### [facility] CLIA [id number] [address] [place] [address] [place] HPV 31+33+35+39+45+51+52 +56+58+59+66+68 DNA NAYELI+probe Ql (Cvx) Not detected Normal Not detected [facility] Comment on above: Order Comment: Speci men Type: FLUID SPECIMENOrdering Facility: [facility] Address: [address] [place] [address] Result Comment: High Risk HPV Other Type includes HPV types 31, 33, 35, 39, 45, 51, 52, 56, 58, 59, 66 and 68. Performed By: #### 6 30-4 #### [facility] CLIA [id number] [address] [place] [address] [place] PAP TESTon 11-07-2024 ADEQUACY Normal [facility] Comment on above: Order Comment: Speci men Type: FLUID SPECIMENOrdering Facility: [facility] Address: [address] [place] [address] Result Comment: Sati sfactory for interpretation. Transformation zone present Performed By: #### L [id number] ####[facility] LABORATORYCLIA [id number] [place] [address] [place] [facility] LABCLIA [id number] [place] [address] [place] CASE REPORT Normal [facility] Comment on above: Order Comment: Speci men Type: FLUID SPECIMENOrdering Facility: [facility] Address: [address], [place] [address] Result Comment: Gyne cologic Cytology Report Case: [id number] Authorizing Provider: Sharla Arriaga APRN.METAL FILER Collected: 11/07/2024 10:19 AM Ordering Location: OB/Gynecology Received: 11/07/2024 12:41 PM First Screen: Feciuch, Melanie, CT, ASCP Specimen: Pap Test, ThinPrep, Cervix Performed By: #### L [id number] ####[facility] LABORATORYCLIA [id number] [address] LABCLIA [id number] [address] [address] [place] CLINICAL HISTORY, CYTOLOGY, OFFICE HELPER CLERICAL (Indicate Weeks) Normal [facility] Comment on above: Order Comment: Speci men Type: FLUID SPECIMENOrdering Facility: [facility] Address: [address] [place] [address] Performed By: #### L [id number] ####[facility] LABORATORYCLIA [id number] [address] LABCLIA [id number] [place] [id number] [place] [facility] Normal [facility] Comment on above: Order Comment: Speci men Type: FLUID SPECIMENOrdering Facility: [facility] Address: [address] [place] [address] Result Comment: Tech nical component, alfalfa dehydrator operator screening performed at [facility], [address] [place] [address] CLIA# [id number] Diagnostic interpretation performed at [facility], [address] [place] [address] CLIA# [id number] Water Pump Operator: Paul Marin M.D. Performed By: #### L [id number] ####[facility] LABORATORYCLIA [id number] [address] LABCLIA [id number] [address] [place] [address] [place] INTERPRETATION, CYTOLOGY, OFFICE HELPER CLERICAL Normal [facility] Comment on above: Order Comment: Speci men Type: FLUID SPECIMENOrdering Facility: [facility] Address: [address] [place] [address] Result Comment: Nega tive for intraepithelial lesion or malignancy. at 1328 EDT Performed By: #### L [id number] ####[facility] LABORATORYCLIA [id number] [address] LABCLIA [id number] [address] [place] [address] [place] LMP 09/14/2024 Normal [facility] Comment on above: Order Comment: Speci men Type: FLUID SPECIMENOrdering Facility: [facility] Address: [address] [place] [address] Performed By: #### L [id number] ####[facility] LABORATORYCLIA [id number] [address] LABCLIA [id number] [address] [place] [address] [place] PAP DISCLAIMER COMMENT The Pap Smear is a screening test for cervical cancer. False negative results occur with all screening tests, emphasizing the need for rescreening at recommended intervals, and clinical correlation. Normal [facility] Comment on above: Order Comment: Speci men Type: FLUID SPECIMENOrdering Facility: [facility] Address: [address] [place] [address] Performed By: #### L [id number] ####[facility]ORATORYCLIA [id number] [address] LABCLIA [id number] [address] [place] [address] [place] PAP MULTI SHARE PROGRAM COORDINATOR COMMENT This specimen has be en analyzed by the ThinPrep Imaging System, an automated imaging and review system, which assists the laboratory in evaluating cells on ThinPrep Pap tests. Following automated imaging, selected reyna from every slide are reviewed by a alfalfa dehydrator operator. Normal [facility] Comment on above: Order Comment: Speci men Type: FLUID SPECIMENOrdering Facility: [facility] Address: [address] [place] [address] Performed By: #### L [id number] ####[facility] LABORATORYCLIA [id number] [place] [address] [facility] LABCLIA [id number] [address] POC PAINTER BARREL ULTRASOUNDon 11-08-19 25 Indication Viability; confirm cardiac activity Impression 2 intrauterine gestational sacs noted. One appears empty. CRL is appropriate for clinical dates, corresponding to OLEG 06/21/2025 cardiac activity is visualized Recommendations Follow up for 1st Trimester Anatomy with Nuchal Translucency as clinically indicated if desired. Method Transabdominal ultrasound examination, Transvaginal ultrasound examination. View: Adequate visualization Daly . Number of embryos: 1 Dating LMP on: 09/14/2024 GA by LMP 7 w + 5 d OLEG by LMP: 06/21/2025 Ultrasound examination on: 11/07/2024 GA by U/S based upon: CRL GA by U/S 7 w + 0 d OLEG by U/S: 06/26/2025 Assigned: based on the LMP, selected on 11/07/2024 Assigned GA 7 w + 5 d Assigned OLEG: 06/21/2025 Biometry Standard FHR 141 bpm CRL 9.8 mm 7w 0d 2% Hadlock Assessment Gestational sac: visualized Location: intrauterine Yolk sac: visualized Embryo: visualized CRL 9.8 mm 7w 0d 2% Hadlock Cardiac activity: present FHR 141 bpm General Evaluation Cardiac activity present. FHR 141 bpm Performed By: Sharla Arriaga NP Read By: Sharla Arriaga NP MATERNAL MEDICINE [facility] Radiology Study observation (narrative) [facility] TRICHOMONAS VAGINALIS NAATon 11-07-2024 T. vaginalis DNA NAYELI+probe Ql (Unsp spec) Not detected Normal Not detected [facility] Comment on above: Order Comment: Speci men Type: SWABOrdering Facility: [facility] Address: [address] [place] [address] Performed By: #### 3 6902-5, VAN ####[facility] LABCLIA [id number] [facility]ENTERMalik [facility] [place] [address] [place] 36on 11-01-2024 36 Called patient and s he stated that Erma is a 3rd constitution party payor for [employer] through her Employer. I provided number for Billing to verify INN benefits [facility] 36 Left a VM 11/01/24 ask ing patient to call. Making her aware the her insurance is OON. If patient calls in please connect to Kenzie @ [place] [employer] [facility] 37on 10-25-2024 37 Obstetrical Calendar Weeks Gestation: Discussion and Testing 4-8 weeks - Visit with provider to establish hcg blood levels and order ultrasound. 6-13 Weeks - Dating and Viability Ultrasound and Visit with provider to discuss US results. 10-13 weeks - Initial OB intake and physical with a Wheel Blocker or Nurse Practitioner. Obtain complete medical, genetic and obstetrical history blood work ordered education Discuss testing options: 1st trimester screening (provides a more accurate assessment of a woman?s risk for carrying a baby with Down Syndrome, Trisomy 13 and Trisomy 18. Carrier Screening for Cystic Fibrosis, Spinal Muscular Atrophy or Fragile x. AFP for Neural Tube Defect. Other tests if appropriate due to risk factors. Discuss Physician and Nurse Wheel Blocker options Discuss hospital for delivery 10-14 Weeks - Visit with OB Provider Review Results of Labs Discuss 1st Trimester Screening or Free Cell DNA if you wish to pursue Discuss indications or need for MFM referral if High Risk, or if need for Amniocentesis or CVS (Chorionic villus sampling) test to diagnose chromosomal abnormalities At Each visit - Check Blood pressure, Check urine, check weight and heart tones as indicated 12-16 weeks - Visit with OB Provider Discuss 2nd trimester screening if desired Check blood pressure, urine, weight and heart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 and the report reviewed and electronically signed by: JAHAIRA RUIZ MD on Apr 15 2023 12:31PM EST [id number] Normal [facility] HCG, Quantitative, Ordered By: Sara Sood on 02-04-2022 hCG Quant 95810 m[IU]/mL [facility] Comment on above: Females < 5 Values in should double every 2 to 3 days for the first 6 weeks.Elevated concentrations of human chorionic gonadotropin (hCG) measured in the first trimester of are observed in normal , but may serve as an indication of chorionic carcinoma, hydatiform mole, or multiple .Decreasing hCG concentrations indicate threatened or missed , recent termination of , ectopic , gestosis or intrauterine . Sierra- and postmenopausal females may have detectable hCG concentrations (< or = to 14 mIU/mL) due to pituitary production of hCG. Serum follicle-stimulating hormone measurement may aid in ruling-out in this population. Cutoffs of greater than 20 to 45 mIU/mL have been suggested and are method dependent. False-elevations (called phantom human chorionic gonadotropin: hCG) may occur with patients who have human antianimal or heterophilic antibodies. Some specimens may not dilute linearly due to abnormal forms of hCG. Elevated hCG concentrations not associated with are found in patients with other diseases such as tumors of the germ cells, ovaries, bladder, pancreas, stomach, lungs, and liver. This test is not intended to detect or monitor tumors or gestational trophoblastic disease. [facility] HCG, Quantitative, on 02-04-2022 Test Performed by [facility], [facility] [address] , [address] LAB hCG Quantitativeon 2 hCG Quantitative 95771 m[IU]/mL Normal [facility] Comment on above: Result Comment: Fema les < 5 Values in should double every 2 to 3 days for the first 6 weeks.Elevated concentrations of human chorionic gonadotropin (hCG) measured in the first trimester of are observed in normal , but may serve as an indication of chorionic carcinoma, hydatiform mole, or multiple .Decreasing hCG concentrations indicate threatened or missed , recent termination of , ectopic , gestosis or intrauterine . Sierra- and postmenopausal females may have detectable hCG concentrations (< or = to 14 mIU/mL) due to pituitary production of hCG. Serum follicle-stimulating hormone measurement may aid in ruling-out in this population. Cutoffs of greater than 20 to 45 mIU/mL have been suggested and are method dependent. False-elevations (called phantom human chorionic gonadotropin: hCG) may occur with patients who have human antianimal or heterophilic antibodies. Some specimens may not dilute linearly due to abnormal forms of hCG. Elevated hCG concentrations not associated with are found in patients with other diseases such as tumors of the germ cells, ovaries, bladder, pancreas, stomach, lungs, and liver. This test is not intended to detect or monitor tumors or gestational trophoblastic disease. Performed By: #### Q WNT5 #### [address] [place] [address] HCG, Quantitative, on 02-02-2022 hCG Quant 87784 m[IU]/mL [facility] Comment on above: Females < 5 CORRECTED RESULT...Previous above value was >55931, verified on 02/02/22 at 17:43 by . Values in should double every 2 to 3 days for the first 6 weeks.Elevated concentrations of human chorionic gonadotropin (hCG) measured in the first trimester of are observed in normal , but may serve as an indication of chorionic carcinoma, hydatiform mole, or multiple .Decreasing hCG concentrations indicate threatened or missed , recent termination of , ectopic , gestosis or intrauterine . Sierra- and postmenopausal females may have detectable hCG concentrations (< or = to 14 mIU/mL) due to pituitary production of hCG. Serum follicle-stimulating hormone measurement may aid in ruling-out in this population. Cutoffs of greater than 20 to 45 mIU/mL have been suggested and are method dependent. False-elevations (called phantom human chorionic gonadotropin: hCG) may occur with patients who have human antianimal or heterophilic antibodies. Some specimens may not dilute linearly due to abnormal forms of hCG. Elevated hCG concentrations not associated with are found in patients with other diseases such as tumors of the germ cells, ovaries, bladder, pancreas, stomach, lungs, and liver. This test is not intended to detect or monitor tumors or gestational trophoblastic disease. Test Performed by [facility], [address] , [place], [place] [id number] [place] [address] LAB [facility] hCG Quantitativeon 2 hCG Quantitative 23875 m[IU]/mL Normal [facility] Comment on above: Result Comment: Fema les < 5 CORRECTED RESULT...Previous above value was >29384, verified on 02/02/22 at 17:43 by . Values in should double every 2 to 3 days for the first 6 weeks.Elevated concentrations of human chorionic gonadotropin (hCG) measured in the first trimester of are observed in normal , but may serve as an indication of chorionic carcinoma, hydatiform mole, or multiple .Decreasing hCG concentrations indicate threatened or missed , recent termination of , ectopic , gestosis or intrauterine . Sierra- and postmenopausal females may have detectable hCG concentrations (< or = to 14 mIU/mL) due to pituitary production of hCG. Serum follicle-stimulating hormone measurement may aid in ruling-out in this population. Cutoffs of greater than 20 to 45 mIU/mL have been suggested and are method dependent. False-elevations (called phantom human chorionic gonadotropin: hCG) may occur with patients who have human antianimal or heterophilic antibodies. Some specimens may not dilute linearly due to abnormal forms of hCG. Elevated hCG concentrations not associated with are found in patients with other diseases such as tumors of the germ cells, ovaries, bladder, pancreas, stomach, lungs, and liver. This test is not intended to detect or monitor tumors or gestational trophoblastic disease. Performed By: #### Q WNT5 #### [facility] [address] [place] [address] CT Sinuses WO contraston IMPRESSION: Moderate right and minimal left maxillary antrum mucosal thickening. Clear remaining paranasal sinuses. Brusher Hand: BREE Transcribe Date/Time: Dec 26 2020 8:13A Dictated by : SATURNINO RAM MD This examination was interpreted and the report reviewed and electronically signed by: SATURNINO RAM MD on Dec 26 2020 8:22AM [facility] DIVISION OF RADIOLOGY * * *Final Report* * * DATE OF EXAM: Dec 26 2020 8:05AM [facility] 0488 - CT SINUS WO IVCON / PROCEDURE REASON: multiple diagnoses * * * * Physician Interpretation * * * * EXAMINATION: CT SINUS WO IVCON HISTORY: Facial pain - Chronic sinusitis, unspecified location - Sinusitis, chronic, possible surgery TECHNIQUE: Spiral high resolution axial unenhanced CT images were obtained through the paranasal sinuses with sagittal, coronal reconstructions. M: CTSI_1 Dose-Length Product (DLP): 105 mGy*cm CT Dose Reduction Employed: No dose reduction techniques were required COMPARISON: None. RESULT: Post-Surgical Findings: None. Sinus Chambers: Moderate lobular mucosal thickening in the right maxillary antrum, and minimal mucosal thickening in the left maxillary antrum. Clear remaining paranasal sinuses. No air-fluid level. Nasal Cavities: Visualized nasal cavities are patent. Developmental Anomalies: Leftward deviation of the mid-posterior nasal septum with overlying bony spur contacting the medial wall of the left maxillary sinus. Ostiomeatal Complex: Patent within the constraints of the study. Other: The middle ear cavities and mastoid air cells are clear. The soft tissues of the face and orbits are within normal limits within the limitations of the study. Temporomandibular joints are maintained. Qa Consultant (topogram) images: No additional findings. DIVISION OF RADIOLOGY Provider, [facility] - 12/26/2020 * * *Final Report* * * DATE OF EXAM: Dec 26 2020 8:05AM [facility] 0488 - CT SINUS WO IVCON / PROCEDURE REASON: multiple diagnoses * * * * Physician Interpretation * * * * EXAMINATION: CT SINUS WO IVCON HISTORY: Facial pain - Chronic sinusitis, unspecified location - Sinusitis, chronic, possible surgery TECHNIQUE: Spiral high resolution axial unenhanced CT images were obtained through the paranasal sinuses with sagittal, coronal reconstructions. M: CTSI_1 Dose-Length Product (DLP): 105 mGy*cm CT Dose Reduction Employed: No dose reduction techniques were required COMPARISON: None. RESULT: Post-Surgical Findings: None. Sinus Chambers: Moderate lobular mucosal thickening in the right maxillary antrum, and minimal mucosal thickening in the left maxillary antrum. Clear remaining paranasal sinuses. No air-fluid level. Nasal Cavities: Visualized nasal cavities are patent. Developmental Anomalies: Leftward deviation of the mid-posterior nasal septum with overlying bony spur contacting the medial wall of the left maxillary sinus. Ostiomeatal Complex: Patent within the constraints of the study. Other: The middle ear cavities and mastoid air cells are clear. The soft tissues of the face and orbits are within normal limits within the limitations of the study. Temporomandibular joints are maintained. Qa Consultant (topogram) images: No additional findings. IMPRESSION IMPRESSION: Moderate right and minimal left maxillary antrum mucosal thickening. Clear remaining paranasal sinuses. Brusher Hand: BREE Transcribe Date/Time: Dec 26 2020 8:13A Dictated by : SATURNNIO RAM MD This examination was interpreted and the report reviewed and electronically signed by: SATURNINO RAM MD on Dec 26 2020 8:22AM EST [facility] Radiology Study observation (narrative) [facility] CT Sinuses WO contrastOrdere d By: [facility] Provider on 12-26-2020 [facility] Basic Metabolic Panelon 03-29 Anion gap [Moles/Vol] 10 mmol/L [place], [place] Calcium [Mass/Vol] 9.6 mg/dL 8.4 - 10. 4 mg/dL [place] Chloride [Moles/Vol] 105 mmol/L 98 - 107 mmol/L [place] CO2 [Moles/Vol] 24 mmol/L 22 - 30 mmol/L [place] Creatinine [Mass/Vol] 0.65 mg/dL 0.52 - 1.25 mg/dL [place] EGFR IF NonAfrican [place]e >60.0 >60 mL/min [place], [place] Comment on above: Source- MDRD equatio n with creatinine calibration to IDMS(NKDEP) eGFR not recommended for drug dose adjustment GFR/1.73 sq M predicted among blacks MDRD (S/P/Bld) [Vol rate/Area] mL/min/{1.73_m2} >60 mL/min [place], [place] Glucose [Mass/Vol] 86 mg/dL 70 - 100 mg/dL [place], [place] Potassium [Moles/Vol] 4.0 mmol/L 3.5 - 5.1 mmol/L [place] Sodium [Moles/Vol] 140 mmol/L 135 - 145 mmol/L [place] Urea nitrogen [Mass/Vol] 9 mg/dL 7 - 20 mg/dL [place], [place] CT Abdomen Pelvis W Contrast on 04-07-2019 Patient Name: MARIBEL BRANDT ---CT--- Exam Date/Time 04/07/2019 17:03:[address] Abdomen/Pelvis w/ IV Contrast (IV Onl Ordering Physician ELLIOTT CELESTIN Accession Number [id number] CPT4 Codes 33973 (CT Abdomen/Pelvis w/ IV Contrast (IV Onl), Q9967 (CT ISOVUE 370MG/ML&[id number]&ML &1) Reason For Exam ABDOMINAL PAIN Report CT ABDOMEN AND PELVIS WITH CONTRAST CLINICAL INDICATION: Abdominal pain Axial CT images of the abdomen and pelvis were acquired after the administration of intravenous contrast. 75 ml of Isovue 370 contrast was given intravenously. Oral contrast was not given for this examination. COMPARISON: 01/31/2018 FINDINGS: The liver, gallbladder, spleen, pancreas, adrenal glands and kidneys appear within normal limits. The abdominal aorta is normal in caliber. There is no retroperitoneal, pelvic, or inguinal lymphadenopathy. The urinary bladder appears grossly normal. The uterus does not appear enlarged. The large and small bowel appears within normal limits without evidence of wall thickening or dilatation. The appendix has been removed. There is no free fluid within the abdomen or pelvis. There is no free air under the diaphragm. Within the visualized portion of the lung bases, there is a calcified granuloma within the lingula. No focal consolidation is seen. No lytic or blastic lesions are seen on the bone windows. IMPRESSION: No acute findings are seen on this examination to explain the patient's pain. Report Dictated on --- Final --- Dictating Physician: MD PINEDO JONATHAN R Signed Date and Time: 04/07/2019 5:20 pm Signed by: MD PINEDO JONATHAN R Transcribed Date and Time: 04/07/2019 5:21 [place], [place] Amrik, Lydia Incoming Radiology Results From [facility] - 04/07/2019 5:21 PM EDT Patient Name: MARIBEL BRANDT ---CT--- Exam Date/Time 04/07/2019 17:03:[address] Abdomen/Pelvis w/ IV Contrast (IV Onl Ordering Physician ELLIOTT CELESTIN Accession Number [id number] CPT4 Codes 05722 (CT Abdomen/Pelvis w/ IV Contrast (IV Onl), Q9967 (CT ISOVUE 370MG/ML&[id number]&ML &1) Reason For Exam ABDOMINAL PAIN Report CT ABDOMEN AND PELVIS WITH CONTRAST CLINICAL INDICATION: Abdominal pain Axial CT images of the abdomen and pelvis were acquired after the administration of intravenous contrast. 75 ml of Isovue 370 contrast was given intravenously. Oral contrast was not given for this examination. COMPARISON: 01/31/2018 FINDINGS: The liver, gallbladder, spleen, pancreas, adrenal glands and kidneys appear within normal limits. The abdominal aorta is normal in caliber. There is no retroperitoneal, pelvic, or inguinal lymphadenopathy. The urinary bladder appears grossly normal. The uterus does not appear enlarged. The large and small bowel appears within normal limits without evidence of wall thickening or dilatation. The appendix has been removed. There is no free fluid within the abdomen or pelvis. There is no free air under the diaphragm. Within the visualized portion of the lung bases, there is a calcified granuloma within the lingula. No focal consolidation is seen. No lytic or blastic lesions are seen on the bone windows. IMPRESSION: No acute findings are seen on this examination to explain the patient's pain. Report Dictated on --- Final --- Dictating Physician: MD PINEDO JONATHAN R Signed Date and Time: 04/07/2019 5:20 pm Signed by: MD PINEDO JONATHAN R Transcribed Date and Time: 04/07/2019 5:21 [place], [place] [facility]GC Urine Qual [place] 2018 Beta HCG ( test) Ql (U) Negative Negative NA [place], [place] Comment on above: is the mos t common reason for HCG in urine, although choriocarcinoma, hydatidiform mole, and certain nontropho- blastic malignancies also result in detectable urinary HCG levels. Sensitivity = 20mIU/mL. Test Performed by [facility], [address] , [place], [place] [address] [place], [place] Hemogram (CBC) w/Auto Diffon 04-07-2019 Absolute Baso # 0.1 10*3/uL 0 - 0.2 10*3/uL [place], [place] Absolute Neut # 13.3 10*3/uL High 1.8 - 7 10*3/uL [place], [place] Basophils/100 WBC (Bld) 0.5 % 0 - 2 % [place] Eosinophils (Bld) [#/Vol] 0.2 10*3/uL 0 - 0.5 10*3/uL [place] Eosinophils/100 WBC (Bld) 1.1 % 1 - 6 % [place] Erythrocyte distribution width (RBC) [Ratio] 11.8 % 11.5 - 14.5 % [place] Granulocytes/100 WBC (Bld) 82.1 % High 40 - 80 % [place] Hematocrit (Bld) [Volume fraction] 39.9 % 35 - 47 % [place] Hemoglobin (Bld) [Mass/Vol] 13.9 g/dL 11.7 - 16 g/dL [place] Interpretation and review of laboratory results Abnormal [place] Lymphocytes (Bld) [#/Vol] 1.7 10*3/uL 1 - 4.3 10*3/uL [place] Lymphocytes/100 WBC (Bld) 10.3 % Low 20 - 40 % [place] MCH (RBC) [Entitic mass] 32.1 pg 26 - 34 pg [place] MCHC (RBC) [Mass/Vol] 34.9 % 32 - 36 % [place] MCV (RBC) [Entitic vol] 91.9 fL 79 - 98 fL [place] Monocytes (Bld) [#/Vol] 1.0 10*3/uL High 0 - 0.8 10*3/uL [place] Monocytes/100 WBC (Bld) 6.0 % 2 - 10 % [place] Platelet mean volume (Bld) [Entitic vol] 8.7 fL 7.4 - 10.4 fL [place] Platelets (Bld) [#/Vol] 293 10*3/uL 140 - 440 10*3/uL [place] RBC (Bld) [#/Vol] 4.34 10*6/uL 3.8 - 5.2 10*6/uL [place] WBC (Bld) [#/Vol] 16.2 10*3/uL High 3.6 - 10.7 10*3/uL [place] Test Performed by [facility], [address] , [address] Hepatic Function Panelon Albumin [Mass/Vol] 4.7 g/dL 3.5 - 5 g/dL [place], [place] ALP [Catalytic activity/Vol] 112 U/L 38 - 126 U/L [place] ALT [Catalytic activity/Vol] 27 U/L 13 - 69 U/L [place] AST [Catalytic activity/Vol] 31 U/L 15 - 46 U/L [place] Bilirubin Ql (U) 0.5 mg/dL 0.2 - 1.3 mg/dL [place] Bilirubin.direct [Mass/Vol] 0.0 mg/dL 0 - 0.3 mg/dL [place] Protein [Mass/Vol] 8.1 g/dL 6.3 - 8.2 g/dL [place], [place] Lipaseon 04-07-2019 Lipase [Catalytic activity/Vol] 41 U/L 23 - 300 U/L [place] Otheron 04-07-2019 Test Performed by [facility], [facility] [address] , [address] Urinalysison 04-07-2019 Appearance (U) Turbid [place], [place] Comment on above: Reference Range: Florentino ar Bacteria, UA Moderate (6-50) /[HPF] [place] Comment on above: Reference Range: Neg ative Bilirubin Urine Negative mg/dL [place] Comment on above: Reference Range: Neg ative Color (U) LIGHT YELLOW [place] Comment on above: Reference Range: Lt. Yellow Glucose, Ur Normal mg/dL [place] Comment on above: Reference Range: Nor mal (<70) Ketones Ql (U) Negative mg/dL [place] Comment on above: Reference Range: Neg ative LEUKOCYTES, UA 500 Ramírez/uL [place] Comment on above: Reference Range: Neg ative Nitrite, Urine Negative [place] Comment on above: Reference Range: Neg ative Occult Blood,Urine Negative mg/dL [place] Comment on above: Reference Range: Neg ative pH (U) 5.5 [pH] [place] Protein (U) [Mass/Vol] Negative mg/dL [place] Comment on above: Reference Range: Neg ative RBC (U) [#/Vol] 0-2 /[HPF] [place] Comment on above: Reference Range: 0-2 Specific Henderson, Urine 1.019 [place] Squam Epithel, UA 6-10 /[HPF] [place] Comment on above: Reference Range: 3-5 Urobilinogen, Urine Normal mg/dL [place] Comment on above: Reference Range: Nor mal (0-1) Volume 12 ml [place] WBC, UA 26-50 /[HPF] [place] Comment on above: Reference Range: 0-5 MRI LUMBAR SPINE W/O CONTRAS T 33560gq 05-06-2017 MRI LUMBAR SPINE W/O CONTRAST 31541 Performed at [facility] APPROVED BY: Cedrick Stanley MD LUMBAR SPINE MRI WITHOUT CONTRAST ENHANCEMENT Serial images were obtained in the sagittal plane with T1W, T2W, and with a STIR sequence and in the transverse plane with T1W and T2W. The study was performed to evaluate low back pain in conjunction with bilateral lower extremity paresthesias. 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 There is only a rudimentary L5-S1 intervertebral disc. The conus medullaris demonstrates normal caliber and signal intensity. There is no definite evidence of focal disc protrusion, significant degenerative stenosis, or of an intraspinal or paraspinal soft tissue mass. Perineural cysts are identified involving the upper sacral nerve root sleeves bilaterally. The lumbosacral intervertebral discs are relatively well-maintained and the alignment is essentially anatomic. There is no evidence of fracture or of dislocation. IMPRESSION: No significant abnormality as described above. 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 In addition, perineural cysts are identified involving the upper sacral nerve root sleeves bilaterally. Normal [facility] ED NOTEon 04-27-2017 ED NOTE HNO ID: [id number]: Shira (Rn) ZAFAR Cheungervice: (none)Author Type: Registered NurseType: ED NotesFiled: 04/27/2017 12:20 PMNote Text: DISCHARGE INSTRUCTIONS using teach back:Patient receptive to education,reviewed medications and percautions, f/u,reasons to return,prescription times .......3 percautions with medications, time next medication dueGood body alignment, heat or ice for comfort Medicated on discharge [facility] ED NOTE HNO ID: [id number] Author: Ernesto StoyrMedicLamont Kirkpatrick Service: (none) Author Type: Sports Physical Therapist and Pear Picker Type: ED Notes Filed: 04/27/2017 11:14 AM Note Text: Back pain started yesterday. Leg numbness getting worse over the last few months. Normal [facility] ED PROV NOTEon 04-27-2017 ED PROV NOTE HNO ID: [id number]: Agata Friedman IIIService: (none)Author Type: Physician AssistantType: ED Provider NotesFiled: 04/27/2017 11:56 AMNote Text:ED Provider NotePatient Name: Maribel BrandtMRN: [id number] DATE: 04/27/17HistoryPatient presents with:Back Pain: back pain and numbness in her legs.HPIHPI:27-year-old female presents to the emergency department for evaluation oflow back pain. The patient states that she has had this low back pain forthe last 8 months or so. The patient was seen and evaluated in October same similar complaint and went to physical therapy 2 times a week for5 or 6 weeks without any significant improvement. The symptoms did seemto improve though and returned within the last 2 weeks. Last week she wasseen and evaluated on 04/21/17 for the same similar complaint. The patienthas not had any falls or direct trauma to her back. The patient has nothad any fever or chills. No bladder or bowel incontinence, urinaryretention or saddle anesthesia. She has not been on a prolonged use ofsteroids. The patient does not have a history of osteoporosis. Thepatient denies any IV drug use. No history of carcinoma. The patient wasseen and evaluated by primary care physician was not given any medicationsfor the pain. The patient states four years ago I had an epidural withmy son and they hit a nerve.PMH:PAST MEDICAL HISTORYDiagnosis Date- Inguinal lymphadenopathy 01/02/2013- NEGATIVE MEDICAL HISTORYPAST SURGICAL HISTORYProcedure Laterality Date- TYMPANOSTOMY LOCAL; UNILATERAL 3 years of ageMedications:No current facility-administered medications on file prior to encounter.Current Outpatient Prescriptions on File Prior to Encounter:citalopram (CELEXA) 40 mg tablet Take 40 mg by mouth once daily.Allergies:Review of patient's allergies indicates no known allergies.Family History:FAMILY HISTORYProblem Relation Age of Onset- bladder cancer [OTHER] Father- Diabetes Maternal Grandfather- Heart Maternal Grandfather- myocardial infarction [OTHER] Maternal Grandfather- Colon Cancer Maternal Grandmother- Diabetes Paternal Grandfather- sids [OTHER] Paternal Grandfather 1/2 siblingSocial History:Social History Marital status: Unknown Spouse name: Years of education: Number of children:Social History Main Topics Smoking status: Current Every Day Smoker Packs/day: 0.00 Years: 0.00 Smokeless status: Never Used Comment: parents smoke Alcohol use: No Drug use: No Sexual activity: Yes Partners with: Female control/protection: PillSocial History Narrative 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 Anticipates going for master'sdegree. Diet: Organic food. Eats lots of fruits and vegetables.Review of SystemsConstitutional: Negative for chills, fatigue and fever.HENT: Negative for congestion and rhinorrhea.Respiratory: Negative for cough, chest tightness, shortness of breath andwheezing.Cardiovascu lar: Negative for chest pain, palpitations and leg swelling.Gastrointestin al: Negative for abdominal pain, diarrhea, nausea andvomiting.Genitourina ry: Negative for dysuria and flank pain.Musculoskeletal: Positive for back pain. Negative for neck pain and neckstiffness.Skin: Negative for color change, pallor, rash and wound.Neurological: Negative for dizziness, syncope, speech difficulty,light-headed ness and headaches.Hematological : Negative for adenopathy. Does not bruise/bleed easily.Psychiatric/Beha vioral: Negative for agitation and confusion.All other systems reviewed and are negative.Physical ExamBP 122/61 Pulse 81 Temp 98.1 Resp 14 Wt 143 lb 11.8 oz (65.2kg) SpO2 98% LMP 04/12/2017Physical ExamVital Signs reviewed and nurse's notes reviewed. The patient is nothypoxic.General: Alert, no acute distress, patient resting comfortablySkin: warm, intact, no pallor notedHead: Normocephalic, atraumaticEye: Normal conjunctivaRespiratory: No acute distressAbdomen: Normal bowel sounds, soft, nontender, no masses detected. Norebound, guarding, or rigidity noted.Back: inspection of the back shows no obvious deformity, no swelling, noecchymosis, contusion, abrasion, swelling, erythema, fluctuance orinduration. The patient has tenderness noted to the right and left SIjoint greater on the right than on the left, there is no midlinetenderness, no thoracic spinal tenderness. No step offs or crepitusnoted. Straight leg raise on left is positive. Straight leg raise onright is positive and worse on the right. DTR 2+ at patella bilaterallyand symmetrically. No CVA tenderness noted bilaterally. The patient wasable to stand on toes and heels. The patient was able to squat at theknees and rise. The patient was able to complete all of these movementsalthough had pain in the low back with them. She was able to sit with herlegs crossed without difficulty.Musculoskele dana: No deformity noted to bilateral lower extremities. nocyanosis or mottling noted. normal pulses at DP and PT 2+ bilaterally andsymmetrically. Normal 5/5 strength at ankles with dorsiflexion andplantar flexion. Patient is able to ambulate. Normal sensation noted tothe bilateral lower extremities.Neurologica l: alert and oriented x4, normal sensory and motor observed.DTR 2+ at patellar bilaterally.Psychiatric : [facility] Care PathLocation of Pain: Low Back (AGATA FRIEDMAN PA-C at 04/27/2017 11:12 AM)Phase: Subacute (6-12 Weeks) (AGATA FRIEDMAN PA-C at 04/27/2017 11:12 AM)History of Malignancy: No (AGATA FRIEDMAN PA-C at 04/27/2017 11:11 AM)Prolonged Steroid Use: No (AGATA FRIEDMAN PA-C at 04/27/2017 11:11 AM)Recent Use of IV Drugs: No (AGATA FRIEDMAN PA-C at 04/27/2017 11:11 AM)Unexplained Fever: No (AGATA FRIEDMAN PA-C at 04/27/2017 11:11 AM)Significant Injury to Spine: No (AGATA FRIEDMAN PA-C at 04/27/2017 11:11AM)Recent Urinary Retention; Fecal Incontinence or Saddle Numbness: No (AGATA SIMMS at 04/27/2017 11:11 AM)Gait or Balance Disturbance: No (AGATA FRIEDMAN PA-C at 04/27/2017 11:11AM)Progressive Weakness in Arms/Legs: No (AGATA FRIEDMAN PA-C at 04/27/201711:11 AM)History of Osteoporosis: No (AGATA FRIEDMAN PA-C at 04/27/2017 11:11 AM)Imaging Needed? No Imaging Needed (AGATA FRIEDMAN PA-C at 04/27/201711:12 AM)ProceduresED Course: XR LUMBAR GENERAL 3V AP/LAT/L5-S1 (Final result) Result time: 04/27/1711:50:25? Final result by Interface, Results In (04/27/17 11:50:25)? Impression:? IMPRESSION: ?NO EVIDENCE OF FRACTURE OR MALALIGNMENTTranscripti onist: PSCB ?Transcribe Date/Time: Apr 27 2017 11:46ADictated by : DEN VELAZQUEZ MDThis examination was interpreted and the report reviewed andelectronically signed by:DEN VELAZQUEZ MD on Apr 27 2017 11:48AM ?EST? Narrative:? * * *Final Report* * *DATE OF EXAM: Apr 27 2017 11:36AM ?MDX ? 5228 ?- ?XR LUMBAR 3V AP/LAT/L5-S1 ?/ REASON: Back pain?? ?* * * * Physician Interpretation * * * *?X-ray lumbosacral spine, AP, lateral and L5-S1 viewsIndication: ?Back painComparison: ?NoneCounting reference: ?Lumbosacral junction. ?For the purposes of thisreport, L5S1 is considered the last lumbar type disc space and L4-5 isconsidered the level of the iliac crest.There is normal architecture and mineralization of the bones. ?Nofracture is visualized. ?There is good alignment of the vertebrae. ?Intervertebral disc spaces are maintained. ?Sacroiliac joints appearnormal.Medical Decision Making:The patient states that she has numbness in her legs however the patienthas sensation and is more of a tingling sensation. There is no absence ofsensation. The patient had pulses that are intact at DP/PT 2+. DTR 2+.There is no evidence of bladder or bowel incontinence. The patient willbe sent for an x-ray of the lumbar spine. The patient did not wantanything strong for the pain. The patient will be given Decadron,Toradol, and Norflex. The patient is noted to be grossly neurologicallyintact.Th e patient ambulated without disturbance in her gait.OARRS website checked and validated. All prescriptions have beenAPPROPRIATELY filled. No suspicious activity was identified.- 04/27/2017by MARIO ALBERTO Rock III-CX-ray of the lumbar spine showed no evidence of fracture or malalignment.I printed off a copy of the x-ray for the patient to take with her. Thepatient will be discharged home with adequate analgesia. We will writeher off work for the next couple of days. She is not to drive on thesemedications. Patient understands plan and has no other questions orconcerns. Follow-up with the spine clinic.Clinical Impression:Encounter Diagnosis ICD-10-CM1. Chronic bilateral low back pain with bilateral sciatica M54.42 M54.41 G89.29Condition at disposition:stableDispo sition:DISCHARGED: Counseled patient regarding radiology results AND suspecteddiagnosis AND need for follow-up. Discharged home with verbal and writteninstructions. They were instructed to return as needed for persistent orworsening symptoms or any new concerns.SIGNATURE: Ania Rock III (Jatin) Elder SANDERS04/27/17 1156 [facility] XR LUMBAR 3V AP/LAT/L5-S1on 04-27-2017 XR LUMBAR 3V AP/LAT/L5-S1 * * *Final Report* * *DATE OF EXAM: Apr 27 2017 11:36AM MDX 5228 - XR LUMBAR 3V AP/LAT/L5-S1 / REASON: Back pain * * * * Physician Interpretation * * * * X-ray lumbosacral spine, AP, lateral and L5-S1 viewsIndication: Back painComparison: NoneCounting reference: Lumbosacral junction. For the purposes of this report, L5S1 is considered the last lumbar type disc space and L4-5 is considered the level of the iliac crest.There is normal architecture and mineralization of the bones. No fracture is visualized. There is good alignment of the vertebrae. Intervertebral disc spaces are maintained. Sacroiliac joints appear normal.IMPRESSION: NO EVIDENCE OF FRACTURE OR MALALIGNMENTTranscripti onist: BREE Transcribe Date/Time: Apr 27 2017 11:46ADictated by : DEN VELAZQUEZ MDThis examination was interpreted and the report reviewed and electronically signed by: DEN VELAZQUEZ MD on Apr 27 2017 11:48AM [id number] [facility] Vital Signs Date Time Vital Sign Value Performing Clinician Facility 05-15-2025 10:31-0400 Body mass index (BMI) [Ratio] 33.66 kg/m2 Juan J Daily APRN.CNM Work Phone: [facility] 05-15-2025 10:31-0400 Body weight 86.18 kg Juan J Plotts DESKTOP PUBLISHING ASSOCIATE.CNM Work Phone: [facility] 05-15-2025 10:31-0400 Diastolic blood pressure 70 mm[Hg] Juan J Plotts DESKTOP PUBLISHING ASSOCIATE.CNM Work Phone: [facility] 05-15-2025 10:31-0400 Systolic blood pressure 118 mm[Hg] Juan J Plotts DESKTOP PUBLISHING ASSOCIATE.CNM Work Phone: [facility] 05-01-2025 10:31-0400 Body mass index (BMI) [Ratio] 32.88 kg/m2 Juan J Plotts DESKTOP PUBLISHING ASSOCIATE.CNM Work Phone: [facility] 05-01-2025 10:31-0400 Body weight 84.19 kg Juan J Plotts DESKTOP PUBLISHING ASSOCIATE.CNM Work Phone: [facility] 05-01-2025 10:31-0400 Diastolic blood pressure 66 mm[Hg] Juan J Plotts DESKTOP PUBLISHING ASSOCIATE.CNM Work Phone: [facility] 05-01-2025 10:31-0400 Systolic blood pressure 120 mm[Hg] Juan J Plotts DESKTOP PUBLISHING ASSOCIATE.CNM Work Phone: [facility] 04-12-2025 13:55-0400 Body mass index (BMI) [Ratio] 32.24 kg/m2 Radha Mcpherson MD Work Phone: [facility] 04-12-2025 13:55-0400 Body weight 82.56 kg Radah Mcpherson MD Work Phone: [facility] 04-12-2025 13:55-0400 Diastolic blood pressure 74 mm[Hg] Radha Mcpherson MD Work Phone: [facility] 04-12-2025 13:55-0400 Systolic blood pressure 112 mm[Hg] Radha Mcpherson MD Work Phone: [facility] 03-28-2025 07:50-0400 Body mass index (BMI) [Ratio] 31.71 kg/m2 Sharla Arriaga DESKTOP PUBLISHING ASSOCIATE.METAL FILER Work Phone: [facility] 03-28-2025 07:50-0400 Body weight 81.19 kg Sharla Arriaga DESKTOP PUBLISHING ASSOCIATE.METAL FILER Work Phone: [facility] 03-28-2025 07:50-0400 Diastolic blood pressure 70 mm[Hg] Sharla Skyury DESKTOP PUBLISHING ASSOCIATE.METAL FILER Work Phone: [facility] 03-28-2025 07:50-0400 Systolic blood pressure 118 mm[Hg] Sharla Haury DESKTOP PUBLISHING ASSOCIATE.METAL FILER Work Phone: [facility] 02-27-2025 09:15-0400 Body mass index (BMI) [Ratio] 30.5 kg/m2 Juan J Plotts DESKTOP PUBLISHING ASSOCIATE.CNM Work Phone: [facility] 02-27-2025 09:15-0400 Body weight 78.11 kg Juan J Plotts DESKTOP PUBLISHING ASSOCIATE.CNM Work Phone: [facility] 02-27-2025 09:15-0400 Diastolic blood pressure 68 mm[Hg] Juan J Plotts DESKTOP PUBLISHING ASSOCIATE.CNM Work Phone: [facility] 02-27-2025 09:15-0400 Systolic blood pressure 122 mm[Hg] Juan J Plotts DESKTOP PUBLISHING ASSOCIATE.CNM Work Phone: [facility] 01-30-2025 09:00-0400 Body mass index (BMI) [Ratio] 28.98 kg/m2 Juan J Plotts DESKTOP PUBLISHING ASSOCIATE.CNM Work Phone: [facility] 01-30-2025 09:00-0400 Body weight 74.21 kg Juan J Plotts DESKTOP PUBLISHING ASSOCIATE.CNM Work Phone: [facility] 01-30-2025 09:00-0400 Diastolic blood pressure 64 mm[Hg] Juan J Plotts DESKTOP PUBLISHING ASSOCIATE.CNM Work Phone: [facility] 01-30-2025 09:00-0400 Systolic blood pressure 100 mm[Hg] Juan J Plotts DESKTOP PUBLISHING ASSOCIATE.CNM Work Phone: [facility] 01-02-2025 08:00-0400 Body mass index (BMI) [Ratio] 28.17 kg/m2 Juan J Plotts DESKTOP PUBLISHING ASSOCIATE.CNM Work Phone: [facility] 01-02-2025 08:00-0400 Body weight 72.12 kg Juan J Daily DESKTOP PUBLISHING ASSOCIATE.CNM Work Phone: [facility] 01-02-2025 08:00-0400 Diastolic blood pressure 72 mm[Hg] Juan J Plotts DESKTOP PUBLISHING ASSOCIATE.CNM Work Phone: [facility] 01-02-2025 08:00-0400 Systolic blood pressure 108 mm[Hg] Juan J Plotts DESKTOP PUBLISHING ASSOCIATE.CNM Work Phone: [facility] 12-10-2024 10:07-0400 Body mass index (BMI) [Ratio] 27.99 kg/m2 Jayleen Olivas MD Work Phone: [facility] 12-10-2024 10:07-0400 Body weight 71.67 kg Jayleen Olivas MD Work Phone: [facility] 12-10-2024 10:07-0400 Diastolic blood pressure 62 mm[Hg] Jayleen Olivas MD Work Phone: [facility] 12-10-2024 10:07-0400 Systolic blood pressure 100 mm[Hg] Jayleen Olivas MD Work Phone: [facility] 11-07-2024 09:39-0400 Body height 160 cm Sharla Arriaga APRN.METAL FILER Work Phone: [facility] 11-07-2024 09:39-0400 Body mass index (BMI) [Ratio] 28.34 kg/m2 Sharla Hasunshine DESKTOP PUBLISHING ASSOCIATE.METAL FILER Work Phone: [facility] 11-07-2024 09:39-0400 Body weight 72.58 kg Sharla Arriaga DESKTOP PUBLISHING ASSOCIATE.METAL FILER Work Phone: [facility] 11-07-2024 09:39-0400 Diastolic blood pressure 60 mm[Hg] Sharla Haury DESKTOP PUBLISHING ASSOCIATE.METAL FILER Work Phone: [facility] 11-07-2024 09:39-0400 Systolic blood pressure 110 mm[Hg] Sharla Arriaga DESKTOP PUBLISHING ASSOCIATE.METAL FILER Work Phone: [facility] [facility] 10-25-2024 13:29-0500 Body mass index (BMI) [Ratio] 31.33 kg/m2 Alex Saffell DESKTOP PUBLISHING ASSOCIATE - METAL FILER Work Phone: [facility] 10-25-2024 13:29-0500 Body weight 75.21 kg Alex Saffell DESKTOP PUBLISHING ASSOCIATE - METAL FILER Work Phone: [facility] 10-25-2024 13:29-0500 Diastolic blood pressure 70 mm[Hg] Alex Saffell DESKTOP PUBLISHING ASSOCIATE - METAL FILER Work Phone: [facility] 10-25-2024 13:29-0500 Heart rate 80 /min Alex Saffell DESKTOP PUBLISHING ASSOCIATE - METAL FILER Work Phone: [facility] 10-25-2024 13:29-0500 Systolic blood pressure 122 mm[Hg] Alex Saffell DESKTOP PUBLISHING ASSOCIATE - METAL FILER Work Phone: [facility] 10-01-2024 14:10-0500 Body height 154.9 cm Hayes Joaquín DESKTOP PUBLISHING ASSOCIATE.METAL FILER Work Phone: [facility] 10-01-2024 14:10-0500 Body mass index (BMI) [Ratio] 30.84 kg/m2 Hayes Joaquín DESKTOP PUBLISHING ASSOCIATE.METAL FILER Work Phone: [facility] 10-01-2024 14:10-0500 Body weight 74 kg Hayes Joaquín DESKTOP PUBLISHING ASSOCIATE.METAL FILER Work Phone: [facility] 10-01-2024 14:10-0500 Diastolic blood pressure 75 mm[Hg] Hayes Joaquín DESKTOP PUBLISHING ASSOCIATE.METAL FILER Work Phone: [facility] 10-01-2024 14:10-0500 Heart rate 83 /min Hayes Joaquín DESKTOP PUBLISHING ASSOCIATE.METAL FILER Work Phone: [facility] 10-01-2024 14:10-0500 Systolic blood pressure 110 mm[Hg] Hayes Joaquín DESKTOP PUBLISHING ASSOCIATE.METAL FILER Work Phone: [facility] 01-03-2024 15:20-0400 Body height 154.9 cm Brooklyn Tom PA-C Work Phone: [facility] 01-03-2024 15:20-0400 Body mass index (BMI) [Ratio] 28.34 kg/m2 Brooklyn Tom PA-C Work Phone: [facility] 01-03-2024 15:20-0400 Body temperature 98.29 [degF] Brooklyn Tom PA-C Work Phone: [facility] 01-03-2024 15:20-0400 Body weight 68.04 kg Brooklyn Tom PA-C Work Phone: [facility] 08-17-2023 05:34-0500 Diastolic blood pressure 90 mm[Hg] [facility] 08-17-2023 05:34-0500 Heart rate 76 /min [facility] 08-17-2023 05:34-0500 Respiratory rate 16 /min [facility] 08-17-2023 05:34-0500 SaO2% (BldA) [Mass fraction] 98 % [facility] 08-17-2023 05:34-0500 Systolic blood pressure 115 mm[Hg] [facility] 08-17-2023 04:11-0500 Body height 154.94 cm [facility] 08-17-2023 04:11-0500 Body mass index (BMI) [Ratio] 29.2 kg/m2 [facility] 08-17-2023 04:11-0500 Body temperature 97.2 [degF] [facility] 08-17-2023 04:11-0500 Body weight 70.2 kg [facility] 04-12-2023 14:58-0400 Body height 154.9 cm Lupe Calderón MD Work Phone: [facility] 04-12-2023 14:58-0400 Body temperature 98.29 [degF] Lupe Calderón MD Work Phone: [facility] 08-15-2023 14:58-0400 Body weight 68.04 kg Lupe Calderón MD Work Phone: [facility] 03-17-2023 11:03-0400 Body height 154.9 cm Thor Mayberry MD Work Phone: [facility] 03-17-2023 11:03-0400 Body weight 67.13 kg Thor Mayberry MD Work Phone: [facility] 03-17-2023 11:03-0400 Diastolic blood pressure 58 mm[Hg] Thor Mayberry MD Work Phone: [facility] 03-17-2023 11:03-0400 Heart rate 82 /min Thor Mayberry MD Work Phone: [facility] 03-17-2023 11:03-0400 SaO2% (BldA) [Mass fraction] 97 % Thor Mayberry MD Work Phone: [facility] 03-17-2023 11:03-0400 Systolic blood pressure 106 mm[Hg] Thor Mayberry MD Work Phone: [facility] 09-30-2022 08:26-0500 Body height 154.9 cm Thor Mayberry MD Work Phone: [facility] 09-30-2022 08:26-0500 Body weight 63.5 kg Thor Mayberry MD Work Phone: [facility] 09-30-2022 08:26-0500 Diastolic blood pressure 69 mm[Hg] Thor Mayberry MD Work Phone: [facility] 09-30-2022 08:26-0500 Heart rate 86 /min Thor Mayberry MD Work Phone: [facility] 09-30-2022 08:26-0500 SaO2% (BldA) [Mass fraction] 100 % Thor Mayberry MD Work Phone: [facility] 09-30-2022 08:26-0500 Systolic blood pressure 105 mm[Hg] Thor Mayberry MD Work Phone: [facility] 09-28-2022 15:00-0500 Body height 154.9 cm Dina Londono MD Work Phone: [facility] 09-28-2022 15:00-0500 Body mass index (BMI) [Ratio] 27.02 kg/m2 Dina Londono MD Work Phone: [facility] 09-28-2022 15:00-0500 Body temperature 98.8 [degF] Dina Londono MD Work Phone: [facility] 09-28-2022 15:00-0500 Body weight 64.86 kg Dina Londono MD Work Phone: [facility] 09-28-2022 15:00-0500 Diastolic blood pressure 80 mm[Hg] Dina Londono MD Work Phone: [facility] 09-28-2022 15:00-0500 Heart rate 87 /min Dina Londono MD Work Phone: [facility] 09-28-2022 15:00-0500 Respiratory rate 20 /min Dina Londono MD Work Phone: [facility] 09-28-2022 15:00-0500 SaO2% (BldA) [Mass fraction] 100 % Dina Londono MD Work Phone: [facility] 09-28-2022 15:00-0500 Systolic blood pressure 114 mm[Hg] Dina Londono MD Work Phone: [facility] 07-14-2022 08:04-0500 Body height 154.9 cm Hayes Heladio DESKTOP PUBLISHING ASSOCIATE.METAL FILER Work Phone: [facility] 07-14-2022 08:04-0500 Body weight 63.5 kg Hayes Heladio DESKTOP PUBLISHING ASSOCIATE.METAL FILER Work Phone: [facility] 07-14-2022 08:04-0500 Diastolic blood pressure 70 mm[Hg] Hayes Heladio DESKTOP PUBLISHING ASSOCIATE.METAL FILER Work Phone: [facility] 07-14-2022 08:04-0500 Heart rate 90 /min Hayes Leija DESKTOP PUBLISHING ASSOCIATE.METAL FILER Work Phone: [facility] 07-14-2022 08:04-0500 Systolic blood pressure 113 mm[Hg] Hayes Leija DESKTOP PUBLISHING ASSOCIATE.METAL FILER Work Phone: [facility] 04-07-2019 17:30-0400 BP Diastolic 65 mm[Hg] [place] [employer] [place] 04-07-2019 17:30-0400 BP Systolic 110 mm[Hg] [place] [employer] [place] 04-07-2019 17:30-0400 Pulse (Heart Rate) 68 /min [facility] [employer] [place] 04-07-2019 17:30-0400 Pulse Oximetry 100 % [facility] [employer] [place] 04-07-2019 17:30-0400 Respiratory Rate 16 /min [facility] [place] 04-07-2019 15:26-0400 Body Temperature 98.8 [degF] [place] [employer] [place] Encounters Encounter Date Encounter Type Care Provider Facility Start: 06-14-2025 ambulatory Jayleen Miranda Facility:[facility] Start: 06-11-2025 End: 06-11-2025 ambulatory THOR MAYBERRY Facility:[facility] Start: 06-03-2025 End: 06-03-2025 ambulatory JAYLEEN OLIVAS Facility:[facility] Start: 05-30-2025 End: 05-30-2025 ambulatory KAITY FLOREZ Facility:[facility] Start: 05-15-2025 End: 05-15-2025 Patient encounter procedure Juan J Daily DESKTOP PUBLISHING ASSOCIATE.CNM Work Phone: OB/Gynecology Comment on above: Encounter for superv ision of high risk in first trimester, antepartum (HCC) (Primary Dx); History of pre-eclampsia; complication before (HCC); Diet controlled gestational diabetes mellitus (GDM) in third trimester (HCC); 34 weeks gestation of (HCC) Start: 05-15-2025 End: 05-15-2025 ambulatory SHARLA ARRIAGA Facility:[facility] Start: 05-10-2025 ambulatory THOR June ty:[facility] Start: 05-10-2025 End: 05-10-2025 Subsequent hospital visit by physician Rebecca Davidson Ob L&D Work Phone: OB/Gynecology Comment on above: Encounter for superv aditi of high risk in first trimester, antepartum (HCC) [O09.91] Start: 05-09-2025 End: 05-09-2025 ambulatory Juan J Daily DESKTOP PUBLISHING ASSOCIATEAmmyCNM Work Phone: OB/Gynecology Comment on above: One week of sugar te sting Start: 05-01-2025 End: 05-01-2025 Patient encounter procedure Whi Tech 1 Claims Investigator [facility] Comment on above: Diet controlled gest ational diabetes mellitus (GDM) in third trimester (HCC) 32 weeks gestation o f (HCC) (Primary Dx); Diet controlled gestational diabetes mellitus (GDM) in third trimester (HCC); History of pre-eclampsia Start: 05-01-2025 End: 05-01-2025 ambulatory SHARLA ARRIAGA Facility:[facility] Start: 04-30-2025 End: 04-30-2025 Telephone encounter Janina Butler MD Work Phone: OB/Gynecology Comment on above: Satya Carlson Start: 04-24-2025 End: 04-24-2025 Telephone encounter Al Lloyd MD Work Phone: OB/Gynecology Comment on above: Start: 04-18-2025 End: 04-18-2025 ambulatory Rebecca Davidson Ob L&D Work Phone: [facility] Comment on above: M-Power Time to Sche danye Start: 04-18-2025 End: 04-18-2025 E-mail encounter from caregiver Rebecca Davidson Ob L&D Work Phone: [facility] Start: 04-12-2025 End: 04-12-2025 Patient encounter procedure Radha Mcpherson MD Work Phone: OB/Gynecology Comment on above: Encounter for superv ision of normal first in third trimester (HCC) (Primary Dx); Breech presentation, single or unspecified fetus (HCC); Diet controlled gestational diabetes mellitus (GDM) in third trimester (HCC); 30 weeks gestation of (HCC) Start: 04-12-2025 End: 04-12-2025 ambulatory THOR MAYBERRY Facility:[facility] Start: 04-02-2025 End: 04-02-2025 ambulatory SHARLA ARRIAGA Facility:[facility] Start: 03-29-2025 End: 03-29-[address] Work Phone: Endocrinology Comment on above: Diet controlled gest ational diabetes mellitus (GDM) in third trimester ([facility]) Start: 03-29-2025 End: 03-29-2025 Telemedicine consultation with patient Yael Franky ACUÑA Work Phone: Endocrinology Start: 03-28-2025 End: 03-28-2025 Patient encounter procedure Sharla Arriaga APRN.METAL FILER Work Phone: OB/Gynecology Comment on above: Encounter for superv ision of normal in second trimester, unspecified (HCC) (Primary Dx); 27 weeks gestation of (HCC); History of pre-eclampsia; History of anxiety; History of delivery; History of trauma; Adjustment disorder with mixed anxiety and depressed mood Start: 03-28-2025 End: 03-28-2025 ambulatory THOR MAYBERRY Facility:[facility] Start: 02-27-2025 End: 02-27-2025 Patient encounter procedure Juan J Daily APRN.CNM Work Phone: OB/Gynecology Comment on above: 23 weeks gestation o f (HCC) (Primary Dx); Screening for diabetes mellitus; Encounter for supervision of normal in second trimester, unspecified (HCC); History of pre-eclampsia; History of anxiety Start: 02-27-2025 End: 02-27-2025 ambulatory THOR MAYBERRY Facility:[facility] Start: 01-30-2025 End: 01-30-2025 Patient encounter procedure Whi Tech 1 Claims Investigator [facility] Comment on above: Encounter for anatomic survey (HCC) (Primary Dx); 19 weeks gestation of (HCC) 19 weeks gestation o f ([facility]) (Primary Dx); Supervision of high risk in second trimester ([facility]); Nausea and vomiting in ([facility]) Start: 01-30-2025 End: 01-30-2025 ambulatory SHARLA ARRIAGA Facility:[facility] Start: 01-02-2025 End: 01-02-2025 Patient encounter procedure Juan J Daily APRN.CNM Work Phone: OB/Gynecology Comment on above: Supervision of high risk in second trimester (HCC) (Primary Dx); History of pre-eclampsia; History of delivery; History of trauma; 15 weeks gestation of ([facility]); Nausea and vomiting during ([facility]) Start: 01-02-2025 End: 01-02-2025 ambulatory [facility] Facility:[facility] Start: 12-24-2024 End: 02-23-2025 Follow-up encounter Jayleen Olivas MD Work Phone: OB/Gynecology Start: 12-19-2024 End: 12-19-2024 ambulatory SHARLA ARRIAGA Facility:[facility] Start: 12-10-2024 End: 12-10-2024 ambulatory JAYLEEN OLIVAS Facility:[facility] Start: 12-10-2024 End: 12-10-2024 Patient encounter procedure Whi Tech 1 Claims Investigator [facility] Comment on above: Encounter for antena dana screening for malformation using ultrasound ([facility]) (Primary Dx); 12 weeks gestation of ([facility]) Supervision of high risk in second trimester ([facility]) (Primary Dx); History of pre-eclampsia; History of delivery; History of trauma; Nausea and vomiting in ([facility]) Start: 11-15-2024 End: 01-15-2025 Follow-up encounter Sharla Arriaga APRN.CNP Work Phone: OB/Gynecology Start: 11-15-2024 End: 11-15-2024 ambulatory THOR MAYBERRY Facility:[facility] Start: 11-15-2024 End: 11-15-2024 Patient encounter procedure Sharla Arriaga APRN.CNP Work Phone: OB/Gynecology Comment on above: Encounter for superv ision of high risk in first trimester, antepartum (Primary Dx); Nausea and vomiting during Start: 11-08-2024 End: 11-08-2024 Telephone encounter Kip Hammond MD Work Phone: [facility] Obstetrics and Gynecology [facility] Comment on above: Appointment Request (Called patient to verify Insurance once again and she stated that she had found another OB that sheis 100% covered and asked that I cancel her appointments ) Start: 11-07-2024 End: 11-07-2024 E-mail encounter from caregiver Rebecca Davidson Ob L&D Work Phone: [facility] Start: 11-07-2024 End: 11-07-2024 ambulatory THOR MAYBERRY Facility:[facility] Start: 11-07-2024 End: 11-07-2024 Patient encounter procedure Sharla Skysunshine BAIRES.METAL FILER Work Phone: OB/Gynecology Comment on above: Encounter for superv ision of high risk in first trimester, antepartum (Primary Dx); with uncertain dates in first trimester; 7 weeks gestation of ; History of pre-eclampsia; Screen for STD (sexually transmitted disease); Screening for cervical cancer; Encounter for screening for human papillomavirus (HPV); History of miscarriage; History of delivery; Nausea and vomiting during ; History of trauma; History of anxiety M-[employer] Referral Start: 11-01-2024 End: 11-01-2024 Telephone encounter Kip Hammond MD Work Phone: [facility] Obstetrics and Gynecology [place] Comment on above: Other (Insurance ([employer]) OON) Start: 10-25-2024 End: 10-25-2024 ambulatory [facility] Start: 10-25-2024 End: 10-25-2024 Office outpatient visit 15 minutes Alex Farr APRN - METAL FILER Work Phone: [facility] Obstetrics and Gynecology - [place] Comment on above: with incon clusive viability, single or unspecified fetus (Primary Dx) Start: 10-01-2024 End: 10-01-2024 ambulatory THOR MAYBERRY Facility:[facility] Start: 10-01-2024 End: 10-01-2024 Patient encounter procedure Hayes Bangurabeatriz BAIRES.METAL FILER Work Phone: [facility] Comment on above: Well adult exam (Gloria jessica Dx); Adjustment disorder with mixed anxiety and depressed mood; Vaping nicotine dependence, tobacco product; Other chronic sinusitis; Adhesive capsulitis of left shoulder; Right buttock pain Start: 10-01-2024 End: 10-01-2024 Patient encounter status Hayes Banguramel DESKTOP PUBLISHING ASSOCIATE.METAL FILER Work Phone: [facility] Work Phone: Start: 01-03-2024 End: 01-03-2024 ambulatory THOR MAYBERRY [facility] Start: 01-03-2024 End: 01-03-2024 Patient encounter procedure Brooklyn Solomon PA-C Work Phone: [facility] Comment on above: Adhesive capsulitis of left shoulder (Primary Dx) Start: 09-27-2023 End: 09-27-2023 ambulatory LUPE CALDERÓN Facility:[facility] Start: 09-08-2023 End: 09-08-2023 ambulatory THOR MAYBERRY [facility] Start: 08-17-2023 Telephone encounter Thor Mayberry MD Work Phone: [facility] Comment on above: Received Outside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 of support (ex:family, friends, support groups, diabetes groups on social media) Diabetes that develops during is called gestational diabetes. It affects 10% of all pregnancies. Gestational diabetes usually goes away after the is over. However, half of all women with gestational diabetes will develop type 2 diabetes within the next 10 years. Gestational Diabetes What Causes Gestational Diabetes? We do not know all the causes of gestational diabetes. However, we do know some risk factors that increase the likelihood of developing gestational diabetes. They include: 1. Having close family members with diabetes 2. Your age: the older you are, the more likely you are to have gestational diabetes. 3. The number of babies you are carrying: patients with multiples are more likely to have gestational diabetes 4. Being overweight before 5. Gaining extra weight during 6. Changing hormones--even though they are necessary for a healthy . Discussed BG targets for : Fasting 60-95 1 hour post meals <140 2 hours post meals <120 Instructed pt to test fasting and 1hr after meal per provider. Stressed risks to fetus and mother with maternal elevated BGs during 1st, 2nd, and 3rd trimesters. Discussed changing insulin needs due to insulin resistance during . We briefly discussed insulin in the event that she needs to start it. Will communicate BG records to OB for assessment. Discussed DM/ meal planning including impact of carbs on BG, foods containing carbs, reading food labels, importance of a balanced diet, portion sizes and associated carb grams, and carb and fat content in restaurant foods. Recommended the following: At least 90 to 175 grams of carbohydrates per day. During , women generally need to consume: - 15 to 30 grams of carbohydrates for breakfast - 45 to 60 grams for lunch - 45 to 60 grams for dinner - 15 to 30 grams per snack I educated the pt on the importance of eating enough carbohydrates. Without proper carbohydrate intake, the body will draw on stored fat for energy. Fat that is turned into energy is known as ketones. Ketones cross the placenta and can cause harm to the baby is Strongly Recommended! Mothers on insulin who breastfeed have lower insulin requirements Your glucose levels and weight will return to prepregnancy levels faster. Mothers with gestational diabetes are less likely to develop type 2 diabetes if they breastfeed their baby. Children born to mothers who had diabetes before or developed gestational diabetes are less likely to develop diabetes themselves if they are breastfed. New GDM BG testing supplies ordered - will crab picker later today, feels comfortable with checking BG, has chec (more content not included)... [facility] 03-28-2025 Progress note Formatting of t his note might be different from the original. EH - S: Maribel is a 34 year old female who presents at 27w6d for a routine visit. Feeling movement. Denies headache, visual changes, chest pain, shortness of breath, vaginal bleeding, leakage of fluid, or dysuria. Feeling well, no complaints. O: See flow sheet Gen: No apparent distress Abd: Gravid, nontender, S=D, 20 lb TWG ASSESSMENT/PLAN: 1. Encounter for supervision of normal in second trimester, unspecified ([facility]) - ICD9: V22.1, ICD10: Z34.92 (primary diagnosis) - Continue PNV and LDA 2. 27 weeks gestation of ([facility]) - ICD9: V22.2, ICD10: Z3A.27 - 1 hour GCT, CBC, and RPR today - Rh positive - Declines TDAP - LARC form reviewed and signed. Declines. - Depression screen negative - Opioid screen negative - plan form discussed and given to Maribel - Reviewed how to pre register through [facility] 3. History of pre-eclampsia - ICD9: V13.29, ICD10: Z87.59 - BP stable 4. History of anxiety - ICD9: V11.8, ICD10: Z86.59 - Notes worsening symptoms - Planning to restart Zoloft, 25 mg rx sent - Reviewed risks and benefits. Patient to go to ER with suicidal thoughts or thoughts of harming others. Denies thoughts of self harm. Discussed will likely take 4-6 weeks to notice full effect. Reviewed that symptoms can become worse before better. Mental health resources provided. 5. History of delivery - ICD9: V13.21, ICD10: Z87.51 - 2022, 35w0d 6. History of trauma - ICD9: V13.7, ICD10: Z87.68 - M power referral placed, wants c/s PTL precautions and kick counts reviewed. RTO in 2 weeks or sooner as needed. Sharla Arriaga APRN.METAL FILER [facility] 03-28-2025 Miscellaneous Notes EH - S: Maribel is a 34 year old female who presents at 27w6d for a routine visit. Feeling movement. Denies headache, visual changes, chest pain, shortness of breath, vaginal bleeding, leakage of fluid, or dysuria. Feeling well, no complaints. O: See flow sheet Gen: No apparent distress Abd: Gravid, nontender, S=D, 20 lb TWG ASSESSMENT/PLAN: 1. Encounter for supervision of normal in second trimester, unspecified ([facility]) - ICD9: V22.1, ICD10: Z34.92 (primary diagnosis) - Continue PNV and LDA 2. 27 weeks gestation of ([facility]) - ICD9: V22.2, ICD10: Z3A.27 - 1 hour GCT, CBC, and RPR today - Rh positive - Declines TDAP - LARC form reviewed and signed. Declines. - Depression screen negative - Opioid screen negative - plan form discussed and given to Maribel - Reviewed how to pre register through [facility] 3. History of pre-eclampsia - ICD9: V13.29, ICD10: Z87.59 - BP stable 4. History of anxiety - ICD9: V11.8, ICD10: Z86.59 - Notes worsening symptoms - Planning to restart Zoloft, 25 mg rx sent - Reviewed risks and benefits. Patient to go to ER with suicidal thoughts or thoughts of harming others. Denies thoughts of self harm. Discussed will likely take 4-6 weeks to notice full effect. Reviewed that symptoms can become worse before better. Mental health resources provided. 5. History of delivery - ICD9: V13.21, ICD10: Z87.51 - 202, 35w0d 6. History of trauma - ICD9: V13.7, ICD10: Z87.68 - M power referral placed, wants c/s PTL precautions and kick counts reviewed. RTO in 2 weeks or sooner as needed. Sharla Arriaga APRN.KATHY documented in this encounter [facility] 03-28-2025 Instructions Sharla Arriaga APRN.CNP - 03/28/2025 7:48 AM EDT Images from the original note were not included. Psychotherapy Services at [facility] Call Behavioral Health Access Line at [phone] to schedule Individual psychotherapy In-person or virtual Wait time for first evaluation may be 12 or more weeks. Wait list spots may be available. Due to the high volume of patients this option is recommended if you are looking for short term acute symptom coping strategies. 4-389-7-BZJB5MWNR - [place] Maternal Mental Health Hotline If you are in suicidal crisis, please call or text 9-391-785-TALK ( ) or visit the National Suicide Prevention Lifeline website. mchb.[facility].gov If you are in crisis, call 911 or go to your nearest Emergency Department Here are some links for wonderful Providers here in the community and surrounding areas. Do not hesitate to contact their offices, many are offering virtual visits during this time. Psychotherapy Services outside of [facility] Support International Online Provider Directory https://Sporthold.Tagoo/ - can assist in finding providers in your area that might be more extensive then the list below. [facility] - [place], [place] [address] [place] [address] [facility] [address] [place] [address] [facility] [address] [place] [address] [facility] [address] [place] [address] Mylene Weir MD [address] [place] [address] [facility] [address] [facility], [address] [place] [address] [facility] [address] [place] [address] [facility] [place] / [place] [phone]/ [phone] Renee Watson [address] [facility] [address] [facility] [phone] Aves of Counseling and Mediation [place] / [place] [phone] [facility] [address] [place] [address]/ [facility] [address] [phone] MAURICE Varghese, CLC [facility] Workshops, telehealth and at home visits. [phone] [facility] counseling [place] 20 locations [place], [place], [place], [place], [place], [place], [place], [facility], [place], [place], [place], [place], [place], [place], [place], [place], [place] ,[facility], [place], [place],[facility], [facility] [place], [place], [facility], [place], [place] www.[facility].co [phone] Psychotherapy resources outside of [facility] are listed below [facility]otherapy Web: https://www.HubChilla/ Support International Online Provider Directory https://Sport Street/ [facility] https://Online Warmongers/ CityIN for Behavioral Health and Wellness Web: https://zipcodemailer.com/ ZZNode Science and Technology for Effective Living Web: https://GigSkylivingBioMCN/ LifeStance Web: https://TapTap.Tagoo/location/s terrell/[place]/ [facility] Web: https://www.Pivotal Softwarelea regional [facility].or / [facility] Web: https://CryoLife.org/ Recovery Resources Mental health and substance abuse help Web: https://www.Wyss Institutes.NetWitness & RESOURCES Support International Direct peer support and connection to professional resources Non-Emergency Helpline Phone: / Text: [phone] Web: https://www..net/ Online Provider Directory: https://Sport Street/ Online Support Meetings: https://www..net/get-he lp/dph-bylnmi-serfmmz-meetings/ FLORENTINO Baby and Polystyrene Bead Molder Services Web: https://www.SunStream Networks/ MotherToBaby Expert information on medication use during and Text: [phone] Web: https://Immunetrics/ NATIONAL REGISTRY FOR PSYCHIATRIC MEDICATIONS Currently studying the safety of antidepressants, ADHD medications and atypical antipsychotics taken during TO PARTICIPATE CALL TOLL-FREE: Web: https://[facility].org/re search/pregnancyregistry/ Support Groups: [facility]- Follow on facebook Baby Bistro support group led by [facility] department Resilient Mamas - Support Group [facility].org The POEM support group [phone] Www.poemonline.org Follow on facebook - NANCY angela Online support meetings PSI https://www..net/get-he lp/qqm-catvpr-aodfxwm-meetings/ [facility] mommy and me virtual support group 11:30-1pm Support for mothers and new babies and toddlers [place] childbirth education: Childbirth @[facility].org or call [phone] CRISIS: CRISIS HOTLINE [phone], 911 or go to the nearest . [facility] [phone] / [facility] [phone] https://www.[facility].org Crisis text line text the word HOME to [address] [facility] [address] michele [address] [facility] [address] www.Sarnova Kaylah Strong clinical counseling [address] [address] www.Skylight Healthcare Systems [phone] Holding space psychotherapy Kaylah Castro MEDIA/INSTRUCTIONAL DESIGNER INSTRUCTOR WEAVING-S [address] [facility] www.WaterplayUSA [phone]/ Irlanda [phone] They all offer virtual. All work with trauma Support groups Online support meetings PSI https://www..net/get-he lp/czk-kicnyf-fkalvvt-meetings/ Here are the support groups they offer: Support of parents of 1 to 4 years old children POEM ( Outreach and Encouragement for Moms) offers free support for mothers experiencing depression, anxiety, and other mood and anxiety disorders. Masks are recommended but not required. No pre-registration required. Babies in arms welcome. meetings now take place on the and Tuesday of each month Location: Brandon Leal [facility] [address] [place] [address] Room 122 (library room) 7-8:00 p.m. When you enter the yarsani parking lot off of [address] the entrance door closest to our meeting room is on the front of the building toward the right. For those who are more comfortable with a virtual platform, POEM offers online support group options several days of the week. To register for an online group or to find out more about POEM, website at: https://LEAF Commercial Capitalaohio.org/get-help/al[facility] hyde medical centerjodd-rezbjj-gcxger/poem-services/ offer a confidential helpline: private Facebook group is called NANCY Angela Here are the groups they offer: Traumatic childbirth resources: Http://pattch.org/ https://www.CleanAppsoumyaVerenium.Tagoo/ Name Location (s) Phone # (s) Services Website [facility] Psychotherapy [address] [place], [place] - [phone]; [address] [phone] In-Person GROUPS INDIVIDUAL THERAPY MATERNAL-INFANT MENTAL HEALTH MEDICATION MANAGEMENT PLAY AND ART THERAPY TELETHERAPY https://www.HubChilla/s ervices/ Ja of Rufina GRAY? [address] [place], [place] [address] ? [address] [place], [place] [address] ? [place] [id number]? Grief Support Groups Individual Grief Counseling Spiritual Care Memorial Events https://river.[facility].org/grief-services [facility] [address] [place], [place] [address]; ; Email: [email or web address] Women's Mental Health; Couples Counseling; Trauma (EMDR); Stress Management; Mood and Anxiety Related Disorders- and much more https://www.ThisLife/ LifeStance Numerous as they have contract providers: access website to find specific providers near you Counseling including CBT and EMDR as well as many more modalities; Medication Management; Telehealth and In-Person https://Neovacs/ [facility] [address] [place] [address]; [phone] Personal, Family and Group Therapy; Psychological Testing and Diagnosis; Medication Management; Life and Career Coaching; Psychoanalysis; Literacy Testing; Yoga and Meditation https://zipcodemailer.com/ [facility] [address] [facility] [address], [place] [address] [address] ; [address] [facility] [address] [place] [address]; Office # for both sites: Individual and Couples Counseling https://www.SharesVault/ paymentinsurance.html OCD & Anxiety [facility] [address] [facility], [address], [place] [address]; Specialize in Cognitive-Behavioral Therapy (CBT) for the treatment of anxiety disorders across the lifespan. TELEHEALTH ONLY. https://ocdandanxietycenteroSpontaneously/faqs [facility] [address] [facility] [address]th [place], [address] [place] [address] [facility], [address] [place] [address] [place], [address] [place] [address] [address] [place], [place], [address] [address], 23[address] [place] [address] [facility] [place], [address] [place] [address] [place], [place], [address] Transportation Services To minimize patient barriers, [facility] provides transportation services to patients who qualify. If you are unable to get to your appointment at any of our facilities, please let us know. Need help now? Stop by one of our walk-in clinics to establish behavioral health care. Counseling Indvidual, Group, Couples and Family Counseling and EMDR. Medication Management Case Management benefits applications housing assistance Substance abuse treatment Medication assisted treatment https://www.[facility].or g/mental-health/ [facility] OFFICE AT [facility] [address] [place] [address] [facility] OFFICE [address] [place] [address] [facility] OFFICE [address] [place] [address] TO OFFICE (at [facility]) [address] [place] [address] [facility] EXCHANGE PROGRAM & HIV SCREENING [address] [place] [address] [facility] EXCHANGE PROGRAM [address] [place] [address] Behavioral Health Urgent Care: [facility] Sites Counseling Indvidual and Group Medication Management Case Management benefits applications housing assistance Substance abuse treatment Medication assisted treatment Employment Services/ Job Training https://theMGT Capital Investments.org/ Recovery Resources [address] [place], [place] [address]: P: [phone] [address] [facility], [address], [place], [place] [address] P: [phone] Our services include: Addiction Mental Health Treatment Assessment Psychiatry Medical Care Employment Housing Drug and Alcohol Prevention HIV/AIDS Prevention https://www.recres.org/ [facility] [place] [address] [place] [address] [place] [address] [place] [address] [place] [address] [place] [address] [place] [address] [facility] [address] [place] [address] [place] [address] [address] [address] TMS Therapy/ Counseling Psychocological Testing for ADHD Medication Management In-Person/ Telemedicine https://www.Exakis.Tagoo/joe ents-depression Memory & Psychological services [address], [place] [address] Neuropsychological Testing For ADHD https://www.memoryandpsych.com/ [facility] [place] [address] [address] Providing ymnp-fi-sgcw and telehealth services. Adult Case Management Community Education and Prevention Employment Outpatient Treatment - Counseling & Psychotherapy Psychiatric Services http://www.[facility]st. [facility].org/ [facility] [place] [address] [place] [address] Gutierrez [facility]) [address] [place] [address] Virtual Appointments! Now offering safe and convenient virtual client appointments to anyone in [place]! Individual Therapy Couples/Relationship Therapy Trauma/EMDR Therapy Art Therapy Play Therapy Professor Of Environmental Engineering Support: Parenting Skills, Parent Child Interaction Therapy, Parent Infant Interaction Therapy Meditation Dietitian/Manager Primary Care Services Group Therapy Yoga https://www.XDC. Tagoo/ Lillian Lozano [phone] Private Practice: Telehealth Only Specializes in EMDR for Trauma None SEQUENTIAL SCREENINGS The [facility] offers sequential screenings for women who are interested in screenings for chromosomal abnormalities and certain defects during a . The sequential screen combines ultrasound and blood tests to determine the risk of chromosomal abnormalities, including Down's Syndrome (Trisomy 21) and Trisomy 18, as well as open neural tube defects including spina bifida. Ultrasound examination is performed between 11 weeks and 13 weeks gestational age. Blood tests are drawn after the ultrasound and again later in the between 15 and 21 weeks gestational age. Please let your physician know if you are interested in this testing. It will require an appointment with our finishing technician. This is not an ultrasound performed by a physician in our office during a routine visit. SIGNS AND SYMPTOMS OF LABOR 1. Contractions every 10 minutes or more often 2. Clear, pink, or brownish fluid (water) leaking from vagina 3. Feeling that baby is pushing down, pressure 4. Low, dull backache 5. Cramps that feel like a period 6. Cramps with or without diarrhea If you notice any of the above symptoms, contact our office at [phone] and ask to speak with a nurse. After hours, you can call doctors registry at [phone] OR call [facility] at [phone] and ask to have the doctor regional agronomist paged. If you consider this an emergency, dial [phone] or go to your nearest emergency department. NEED HELP? Are you dealing with a violent or abusive relationship? Are you a victim of rape or sexual assult? Call [facility] ([place]) 24 hour Crisis Hotline: 486.771.1440 or 494-342-4724. MANUAL Your Guide to a Healthy manual is now on-line. Visit [facility].org/HealthyPregna ncyGuide to download your free copy documented in this encounter [facility] 02-27-2025 Progress note Formatting of t his note might be different from the original. S: Maribel Michaels is a 34 year old female who presents at 23 weeks gestation for a routine visit. Positive movements. Reports anxiety continues to increase. Is planning on restarting Zoloft 25 mg PO daily. She wanted to get out of 1st trimester. Also concerned it will continue to increase during post and wants to restart medication now. Spoke with PCP. Denies headache, visual changes, chest pain, shortness of breath, vaginal bleeding, leakage of fluid, or dysuria. Acid reflux improved on medication. O: See flow sheet Gen: No apparent distress Abd: Gravid, nontender ASSESSMENT/PLAN: 1. 23 weeks gestation of 2. Screening for diabetes mellitus 3. Encounter for supervision of normal in second trimester, unspecified 4. History of pre-eclampsia 5. History of anxiety - Continue labs - Continue ASA - Follow up with PCP regarding restart of Zoloft 25 mg PO - RTO 4 weeks for MARITZA with GCT Juan J Daily APRN.CNM [facility] 02-27-2025 Miscellaneous Notes S: Maribel Michaels is a 34 year old female who presents at 23 weeks gestation for a routine visit. Positive movements. Reports anxiety continues to increase. Is planning on restarting Zoloft 25 mg PO daily. She wanted to get out of 1st trimester. Also concerned it will continue to increase during post and wants to restart medication now. Spoke with PCP. Denies headache, visual changes, chest pain, shortness of breath, vaginal bleeding, leakage of fluid, or dysuria. Acid reflux improved on medication. O: See flow sheet Gen: No apparent distress Abd: Gravid, nontender ASSESSMENT/PLAN: 1. 23 weeks gestation of 2. Screening for diabetes mellitus 3. Encounter for supervision of normal in second trimester, unspecified 4. History of pre-eclampsia 5. History of anxiety - Continue labs - Continue ASA - Follow up with PCP regarding restart of Zoloft 25 mg PO - RTO 4 weeks for MARITZA with GCT Juan J Daily APRN.CNM documented in this encounter [facility] 01-30-2025 Progress note Formatting of t his note might be different from the original. S: Maribel Michaels is a 34 year old female who presents at 19 weeks gestation for a routine visit. Just completed anatomy US. Feeling movements. N/V improved. Taking Zofran less than before. Increased acid reflux. Denies headache, visual changes, chest pain, shortness of breath, vaginal bleeding, leakage of fluid, or dysuria. O: See flow sheet Gen: No apparent distress Abd: Gravid, nontender ASSESSMENT/PLAN: 1. 19 weeks gestation of (H[facility]) - ICD9: V22.2, ICD10: Z3A.19 (primary diagnosis) 2. Supervision of high risk in second trimester (HCC) - ICD9: V23.9, ICD10: O09.92 3. Nausea and vomiting in (HCC) - ICD9: 643.90, ICD10: O21.9 4. Heartburn in - Start Pepcid 20 mg PO BID - ONDANSETRON HCL 4 MG TABLET- Refill sent - Continue ASA/PNV daily - RTO 4 weeks or sooner if needed Juan J Daily APRN.CNM [facility] 01-30-2025 Miscellaneous Notes S: Maribel Michaels is a 34 year old female who presents at 19 weeks gestation for a routine visit. Just completed anatomy US. Feeling movements. N/V improved. Taking Zofran less than before. Increased acid reflux. Denies headache, visual changes, chest pain, shortness of breath, vaginal bleeding, leakage of fluid, or dysuria. O: See flow sheet Gen: No apparent distress Abd: Gravid, nontender ASSESSMENT/PLAN: 1. 19 weeks gestation of ([facility]) - ICD9: V22.2, ICD10: Z3A.19 (primary diagnosis) 2. Supervision of high risk in second trimester ([facility]) - ICD9: V23.9, ICD10: O09.92 3. Nausea and vomiting in ([facility]) - ICD9: 643.90, ICD10: O21.9 4. Heartburn in - Start Pepcid 20 mg PO BID - ONDANSETRON HCL 4 MG TABLET- Refill sent - Continue ASA/PNV daily - RTO 4 weeks or sooner if needed Juan J Daily APRN.CNM documented in this encounter [facility] 01-30-2025 Instructions Shelli Poole MA - 01/30/2025 8:59 AM EDT SEQUENTIAL SCREENINGS The [facility] offers sequential screenings for women who are interested in screenings for chromosomal abnormalities and certain defects during a . The sequential screen combines ultrasound and blood tests to determine the risk of chromosomal abnormalities, including Down's Syndrome (Trisomy 21) and Trisomy 18, as well as open neural tube defects including spina bifida. Ultrasound examination is performed between 11 weeks and 13 weeks gestational age. Blood tests are drawn after the ultrasound and again later in the between 15 and 21 weeks gestational age. Please let your physician know if you are interested in this testing. It will require an appointment with our finishing technician. This is not an ultrasound performed by a physician in our office during a routine visit. SIGNS AND SYMPTOMS OF LABOR 1. Contractions every 10 minutes or more often 2. Clear, pink, or brownish fluid (water) leaking from vagina 3. Feeling that baby is pushing down, pressure 4. Low, dull backache 5. Cramps that feel like a period 6. Cramps with or without diarrhea If you notice any of the above symptoms, contact our office at [phone] and ask to speak with a nurse. After hours, you can call doctors registry at [phone] OR call [facility] at [phone] and ask to have the doctor regional agronomist paged. If you consider this an emergency, dial [phone] or go to your nearest emergency department. NEED HELP? Are you dealing with a violent or abusive relationship? Are you a victim of rape or sexual assult? Call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 of screening. The availability of genetic counseling was reviewed. Information on carrier screening was provided. The patient Accepts 3) Patient offered option of Virtual Visits. Patient unsure. May consider in future. ACTIVE PROBLEM LIST Encounter for Supervision of High Risk in First Trimester, Antepartum - 11/07/2024 Comment: Care Checklist Vaccines: [] Flu vaccine [] declined [] RSV vaccine 32 0/7 - 36 6/7 (Apr - Sep) [] declined [] COVID vaccine [] declined [] TDaP 27-36 [] declined First trimester: [x] Dating US [x] 1st tri labs [x] Pap smear [x] Carrier screening [] declined [] NIPT screening [] declined [x] First trimester anatomy scan [] declined [x] universal ASA ordered (start 12w-16w) [] declined [x] M Power Consult [] not indicated [] declined Second trimester: [] Anatomy scan [] Mode of Delivery - [] Feeding - [] Pump ordered [] Diabetes screen [] CBC, RPR [] Behavioral Health Screening Third trimester (28-30 weeks): [] Consent [] Contraception [] Rip Machine Operator [] TeamBirth handout Third trimester (36-40 weeks): [] GBS [] Presentation - [] Scheduled [] yes - Hibiclens, pre-op instructions, CBC, T&S ordered [] no [] H&P [] Preferences worksheet [] Scanned in EM History of Pre-Eclampsia - 11/07/2024 Comment: November 07, 2024 Baseline labs ordered. Delivered at 35 weeks. Sharla Arriaga APRN.CNP History of Delivery - 11/07/2024 Comment: November 07, 2024 35 weeks due to pre eclampsia Sharla Arriaga APRN.CNP History of Miscarriage - 11/07/2024 Nausea and Vomiting During - 11/07/2024 Comment: November 07, 2024 Tolerating bread/bland diet. Taking Zofran - prescribed by previous OB doctor. Reviewed first trimester risks. Recommend adding 25 mg of Vitamin B6 three times per day. To notify if unable to keep food or water down for more than 12-24 hours Sharla Arriaga APRN.CNP History of Trauma - 11/07/2024 Comment: November 07, 2024 Related to 35 week delivery/pre eclampsia. M power program reviewed. Sharla Arriaga APRN.CNP History of Anxiety - 11/07/2024 Comment: November 07, 2024 Reports coping well on 50 mg of Zoloft. Mental health resources provided. Sharla Arriaga APRN.METAL FILER Follow up in 4 weeks or sooner prn. Plan for NT scan between 12w0d and 13w6d gestation. Sharla Arriaga APRN.METAL FILER documented in this encounter [facility] 11-05-2024 Instructions Sharla Arriaga APRN.CNP - 11/05/2024 2:10 PM EDT Images from the original note were not included. Please select the following link to access the [facility] Your Guide to a Healthy . [email or web address].Ccf.org/healthypregnancyguide Please select the following link to access the [facility] Your Guide to a Healthy . www.Cc.org/healthypregnancyguide [facility] provides specialized care for patients whose experiences may be affected by previous traumatic experiences. The M-Power program is designed to care for patients who have experienced assault, physical or sexual abuse, previous childbirth trauma or other significant life events. Our goal is to provide you with the best experiences and outcomes. Nurses specially trained in trauma-informed care put your needs first, and provide you with confidential and compassionate support.This holistic approach ensures that feel prepared for labor, delivery, and the period. To speak with our team, please call [phone] or email MORNING SICKNESS IN by Camryn Greco M.D. for [employer] As you may already know, morning sickness can often be more appropriately called evening sickness or omgzk-zudzif-fy-the-day sickness. While there are the shante few, most women (50-90%) experience some degree of nausea, some have vomiting, and a few develop a severe form of vomiting during called hyperemesis gravidarum. What causes the nausea and vomiting of ? We can't explain why some people feel fine and others are green for months. Even the same woman may feel vastly different in each . There is some relationship between nausea and the level of the hormone hCG. In twin pregnancies, and in other situations where the hCG is greater than expected, nausea and vomiting tend to be worse. In a destined for miscarriage, hCG levels tend to be low, and nausea is often less severe. This being said, a lack of nausea doesn't guarantee that the is destined for miscarriage. The fact that nausea and vomiting are often signs of a healthy can offer a silver lining in the dark cloud of miserable nausea. How long will the nausea last? Fortunately, for most women, nausea and vomiting are a first trimester event, peaking at week 9-10 and waning by week 14-16. When you are feeling bad the weeks can go by slowly but most moms do feel tremendously better by the middle of the . Whether morning sickness is a brief experience or lasts through most of the , there are treatments that can make the weeks or months more tolerable. What can you do about it? Diet: See what works for you. Try eating bland dry foods, and avoid fatty or spicy foods. It is okay to eat a less than perfectly balanced diet in the first trimester. Have your liquids separately from dry foods. Try sports drinks, water, clear juices, Heath-aid, or non-caffeinated tea. Avoid carbonated beverages that fill up your stomach. Try eating lots of little meals. If you tend to feel sick when you first wake up, leave crackers next to the bed for a quick snack before rising. Keeping healthy snacks with you all day to nibble when you feel queasy can sometimes even prevent nausea from starting. vitamins and nausea: Pre-loraine vitamins can sometimes worsen nausea in . While folate is necessary, especially early in the , it comes as a smaller pill that many people find more tolerable than the complete vitamin pill. Ask your practitioner if it is okay to temporarily replace vitamins and iron with just a folate pill if you find a significant worsening in the level of your nausea from the vitamins. Alternative therapies: Acupressure may be used to treat nausea in , and is not known to have any risks for the fetus. Wristbands (marketed for seasickness) that put pressure on an acupressure point at the wrist are often available at drugstores or travel stores. Tatum root is used for nausea in many traditional cultures. Some women take fresh grated tatum or tatum tablets. It is possible that the pill form contains other ingredients or contaminants, so you may want to try fresh tatum first. Medications: Emetrol is the only nausea medication approved for use in . It is available over the counter and is soothing to the stomach. A prescription medication called Bendectin was available in the -1979's and was shown to be safe in , but the company stopped marketing it in the [place] due to the costs of liability coverage. Bendectin contained 10 milligrams of vitamin B6 and 10 milligrams of Doxylamine. Two tablets were given at bedtime and a total of up to 4 tablets could be used in a 24-hour period. Interestingly, Unisom , which contains a higher dose (25 mg.) of the same medication, Doxylamine, is currently marketed as an osvz-nnn-sinmbkt sleeping pill. Ask your practitioner if creating a vitamin B6/Doxylamine combination with ktak-blr-pyooovl medications would be safe for you. Prescription medications like Compazine and Phenergan can be used if the benefits outweigh possible risks, but these have not been clearly shown to be safe in . Zofran , an expensive anti-nausea medication often used to treat nausea from chemotherapy, can also be used. Can I throw up so much it harms the baby? The act of vomiting cannot hurt your fetus, which is protected inside the uterus. If you get dehydrated or develop a metabolic imbalance, this can be unhealthy. As long as you can keep down liquids, you and your baby will generally do all right. Eat when you feel able. If you are unable to keep anything down, or if you notice potential signs of dehydration such as lightheadedness, or concentrated and/or infrequent urination, call your practitioner. Some women need brief hospital admission for intravenous fluids and anti-nausea medications if their condition becomes severe. This severe form of nausea and vomiting is called Hyperemesis Gravidarum. As with many symptoms of , remind yourself that this, too, shall pass, and you'll have a wonderful baby to show for it! TREATMENT OPTIONS, SHORT VERSION: Frequent small meals Hydrate throughout day Sea-Bands wrist pressure point applicators Tatum root (powdered, in capsules) 250mg four times a day Vitamin B6 25 mg tablet three times a day Also may be taken with half a tablet of Unisom three times a day (Doxylamine 12.5 mg) If severe (weight loss, dehydration), call us and come in for IV hydration and possible medication in the form of injections. Prescription medications such as Phenergan, Compazine, Reglan Ondansetron (Zofran ) March 29, 2020 This sheet talks about exposure to ondansetron in a and while . This information should not take the place of medical care and advice from your healthcare provider. What is ondansetron? Ondansetron is a medication used to treat nausea and vomiting that may be caused by surgery, chemotherapy, or radiation therapy. Ondansetron has also been prescribed during to help with symptoms of nausea and vomiting in (NVP). NVP is also referred to as morning sickness . Ondansetron is taken by mouth, infused into a vein (by IV) or given by injection into a muscle (IM). Ondansetron is sold under the brand name Zofran . What can I do to help control my nausea and vomiting? HexAirbot has a helpful fact sheet on nausea in with recommendations. You can review it here: https://Vantage Media.org/fact-she ets/zymplu-bmqebnja-qwgaksyiw-nvp /pdf/. Also, eating small meals often, drinking plenty of clear fluids, and avoiding triggers (such as odors, heat, and spicy or high fat foods) can help. Talk to your healthcare provider about which NVP treatments are right for you. I take ondansetron. Can it make it harder for me to become ? There are no studies that have looked to see if ondansetron could make it harder for a person to get . Studies in animals did not find that ondansetron would affect the ability to get . Does taking ondansetron increase the chance for miscarriage? Miscarriage can occur in any . One study did not find that miscarriage happened more often for those who reported that they used ondansetron in the first trimester of . Does taking ondansetron increase the chance of defects? Every starts out with a 3-5% chance of having a defect. This is called the background risk. Most studies have found no increased chance for defects among thousands of people who used ondansetron in the first trimester of . A few studies reported a very small (less than 1%) increase in the chance for a cleft palate (an opening in the roof of the mouth that may be repaired with surgery) or a heart defect. Because of other factors that could affect the pregnancies exposed to ondansetron, it is not known if ondansetron actually increases the chance of defects. Could taking ondansetron cause other complications? Studies did not find a higher chance of loss, delivery (delivery before 37 weeks of ), or low weight when ondansetron was used during . At higher doses, there have been reports that ondansetron use might cause a heart rhythm problem (called QT interval prolongation) in the person taking ondansetron. In severe cases, this could become an abnormal heart rhythm known as Torsades de Pointes. If you are taking ondansetron, you can talk to your healthcare provider about how to watch for changes in your heart rhythm. Does taking ondansetron in cause long-term problems in behavior or learning for the baby? One study looked at 78 infants who were exposed to ondansetron at any time during . The infants were looked at between 7 days to 2 months of age and did not show any signs of unusual behaviors. A single follow-up survey for about 25 of these children was sent in by the parents. The children were between 1 to 5 years old. The survey asked about behavior. The surveys did not report behavior differences in these children compared to children who were not exposed ondansetron during . There are no other studies looking at the use of ondansetron in and long-term effects for the baby. Can I breastfeed while taking ondansetron? There have been no studies in humans looking at the use of ondansetron during . Studies in animals suggest that ondansetron enters breast milk, but the effects of ondansetron on a are not known. If ondansetron use is necessary, it is not usually a reason to stop . A different drug may be considered, especially while a or infant. Be sure to talk to your healthcare provider about all your questions. I take ondansetron. Can it make it harder for me to get my partner or increase the chance of defects? There are no human studies looking at male use of ondansetron. Animal studies have not shown any effect on male fertility. In general, exposures that fathers and sperm donor have are unlikely to increase risks to a . For more information, please see the MotherToBaby fact sheet Paternal Exposures at https://mothertobaby.org/fact-she ets/wrxifbys-bdyypkrdf-knucrequq/ pdf/. Psychotherapy Services at [facility] Call Behavioral Health Access Line at [phone] to schedule Individual psychotherapy In-person or virtual Wait time for first evaluation may be 12 or more weeks. Wait list spots may be available. Due to the high volume of patients this option is recommended if you are looking for short term acute symptom coping strategies. 4-548-4-ZAOG0SWTN - National Maternal Mental Health Hotline If you are in suicidal crisis, please call or text 5-736-101-TALK ( ) or visit the National Suicide Prevention Lifeline website. mchb.[facility].gov If you are in crisis, call 911 or go to your nearest Emergency Department Here are some links for wonderful Providers here in the community and surrounding areas. Do not hesitate to contact their offices, many are offering virtual visits during this time. Psychotherapy Services outside of [facility] Support International Online Provider Directory https://Sport Street/ - can assist in finding providers in your area that might be more extensive then the list below. [facility] [place] [address] [place] [address] [facility] [address] [place] [address] [facility] [address] [place] [address] [facility] [address] [place], [place] [id number] Mylene Weir MD [address] [place] [address] [facility] [facility] [address] [facility], [address] [place] [address] [facility] [address] [place] [address] [facility] Counseling Services [place] / [place] [phone]/ [phone] [facility] [address] [facility] [address] [facility] [phone] Aves of Counseling and Mediation [place] / [place] [phone] [facility] [address] [place] [address]/ [facility] [address] [phone] MAURICE Varghese, BRENNA Mckeon and Beyond Family Therapy Workshops, telehealth and at home visits. [phone] Humanistic counseling center 20 locations [place], [place], [place], [place], [place], [place], [place], [facility], [place], [place], [place], [place], [place], [place], [place], [place], [place] ,[place], [place], [place],[facility], south [place], [place], [facility], [place], [place] www.Go-Page Digital Media.[facility] [phone] Psychotherapy resources outside of [facility] are listed below [facility]Doc Psychotherapy Web: https://www.HubChilla/ Support International Online Provider Directory https://Sport Street/ [facility] https://Online Warmongers/ Partners for [facility] and Wellness Web: https://zipcodemailer.com/ FitnessManager Effective Living Web: https://EnterCloud Solutions/ LifeStance Web: https://Neovacs/location/s terrell/[place]/ [facility] Web: https://Azuqua.Pivotal Softwarefulton county health centerVizional Technologies.or / [facility] Web: https://CryoLife.org/ Recovery Resources Mental health and substance abuse help Web: https://www.Wyss Institutes.org & RESOURCES Support International Direct peer support and connection to professional resources Non-Emergency Helpline Phone: / Text: [phone] Web: https://www..net/ Online Provider Directory: https://Sport Street/ Online Support Meetings: https://www..net/get-he lp/oss-lxvrfw-jdgezkn-meetings/ FLORENTINO Baby and Polystyrene Bead Molder Services Web: https://wwwShopCity.com/ HexAirbot Expert information on medication use during and Text: [phone] Web: https://Immunetrics/ NATIONAL REGISTRY FOR PSYCHIATRIC MEDICATIONS Currently studying the safety of antidepressants, ADHD medications and atypical antipsychotics taken during TO PARTICIPATE CALL TOLL-FREE: Web: https://womensmentalhealth.org/re search/pregnancyregistry/ Support Groups: [facility]- Follow on facebook Baby Bistro support group led by [facility] department Resilient Mamas - Support Group [facility].org The POEM support group [phone] Www.poemonline.org Follow on facebook - NANCY gray chapter Online support meetings PSI https://www..net/get-he lp/elp-nrenxb-bnxvzdx-meetings/ [facility] mommy and me virtual support group 11:30-1pm Support for mothers and new babies and toddlers [place] childbirth education: Childbirth @cc.org or call [phone] CRISIS: CRISIS HOTLINE [phone], 911 or go to the nearest ER. [facility] [phone] / [facility] [phone] https://www.[facility].org Crisis text line text the word HOME to 322858 [facility] [address] [facility] [address] www.Sarnova Kaylah Strong clinical counseling [address] [address] www.[facility] [phone] Holding space psychotherapy Kaylah Brynjazmyne [facility] INSTRUCTOR WEAVING-S [address] [facility] www.WaterplayUSA [phone]/ [place] [phone] They all offer virtual. All work with trauma Support groups Online support meetings PSI https://www..net/get-he lp/ger-zhyxdz-tbdtyfw-meetings/ Here are the support groups they offer: Support of parents of 1 to 4 years old children POEM ( Outreach and Encouragement for Moms) offers free support for mothers experiencing depression, anxiety, and other mood and anxiety disorders. Masks are recommended but not required. No pre-registration required. Babies in arms welcome. meetings now take place on the and Tuesday of each month Location: Brandon Leal [facility] [address] [place] [address], [place] [address] Room 122 (library room) 7-8:00 p.m. When you enter the yarsani parking lot off of [address] the entrance door closest to our meeting room is on the front of the building toward the right. For those who are more comfortable with a virtual platform, c8apps offers online support group options several days of the week. To register for an online group or to find out more about POEM, website at: https://mhaohio.org/get-help/[facility] medical centerqpcc-wdnyad-ftwbrx/poem-services/ offer a confidential helpline: private Facebook group is called NANCY Angela Here are the groups they offer: Traumatic childbirth resources: Http://pattch.org/ https://www.OBOOKnaziaNebulasoumyaVerenium.Tagoo/ Name Location (s) Phone # (s) Services Website [facility] Psychotherapy [address] [facility] [phone]; [address] [phone] In-Person GROUPS INDIVIDUAL THERAPY MATERNAL- MENTAL HEALTH MEDICATION MANAGEMENT PLAY AND ART THERAPY TELETHERAPY https://www.HubChilla/s ervices/ Dee GRAY? [address] [place] [address] ? [address], [address] [place], [place] [address] ? LUU [address] [place] [address]? Grief Support Groups Individual Grief Counseling Spiritual Care Memorial Events https://river.[facility].org/grief-services [facility] [address] [place], [place] [address]; ; Email: [email or web address] Women's Mental Health; Couples Counseling; Trauma (EMDR); Stress Management; Mood and Anxiety Related Disorders- and much more https://www.iGo ULURU.com/ LifeStance Numerous as they have contract providers: access website to find specific providers near you Counseling including CBT and EMDR as well as many more modalities; Medication Management; Telehealth and In-Person https://Neovacs/ [facility] [address] [place], [place] [address]; [phone] Personal, Family and Group Therapy; Psychological Testing and Diagnosis; Medication Management; Life and Career Coaching; Psychoanalysis; Literacy Testing; Yoga and Meditation https://zipcodemailer.com/ [facility] [address] [facility] [address], [place] [address] [address] ; [address] [facility], [address] [place] [address]; Office # for both sites: Individual and Couples Counseling https://www.SharesVault/ paymentinsurance.html OCD & Anxiety [facility] [address] [facility], [address], [place] [address]; Specialize in Cognitive-Behavioral Therapy (CBT) for the treatment of anxiety disorders across the lifespan. TELEHEALTH ONLY. https://ocdandanxietycenteroSpontaneously/faqs [facility] [address] [facility] 6th [place], [address] [place] [address] [facility], [address] [place] [address] [place], [address] [place] [address] [place], [address], [address] [place] [address] [facility] [place], [address] [place] [address] [place], [address] Transportation Services To minimize patient barriers, [facility] provides transportation services to patients who qualify. If you are unable to get to your appointment at any of our facilities, please let us know. Need help now? Stop by one of our walk-in clinics to establish behavioral health care. Counseling Indvidual, Group, Couples and Family Counseling and EMDR. Medication Management Case Management benefits applications housing assistance Substance abuse treatment Medication assisted treatment https://www.french hospitalinc.or g/mental-health/ [facility] OFFICE AT [facility] [address] [place] [address] [facility] OFFICE [address] [place] [address] [facility] OFFICE [address] [place] [address] [facility] OFFICE (at [facility]) [address] [place] [address] [facility] SYRINGE EXCHANGE PROGRAM & HIV SCREENING [address] [place] [address] [facility] EXCHANGE PROGRAM [address] [place] [address] Behavioral Health Urgent Care: [facility] Sites Counseling Indvidual and Group Medication Management Case Management benefits applications housing assistance Substance abuse treatment Medication assisted treatment Employment Services/ Job Training https://theMGT Capital Investments.org/ Recovery Resources [address] [place], [place] [address]: P: [phone] [address] [facility], [address], [place] [address] P: [phone] Our services include: Addiction Mental Health Treatment Assessment Psychiatry Medical Care Employment Housing Drug and Alcohol Prevention HIV/AIDS Prevention https://www.Wyss Institutes.org/ [facility] [place] [address] [place] [address] [address] [place], [place] [address] [place] [address] [place] [address] [place] [address] [facility] [address] [place] [address] [place] [address] [address] [address] TMS Therapy/ Counseling Psychocological Testing for ADHD Medication Management In-Person/ Telemedicine https://www.Exakis.Tagoo/joe ents-depression Memory & Psychological services [address], [place] [address] Neuropsychological Testing For ADHD https://www.memoryandpsych.com/ [facility] Office [address] [place] [address] [address] [place] [address] [place] [address] Providing ghpj-fz-hfnw and telehealth services. Adult Case Management Community Education and Prevention Employment Outpatient Treatment - Counseling & Psychotherapy Psychiatric Services http://www.[facility]st. [facility].org/ Ebb And Flow [facility] and Wellness [facility] [address] [place] [address] Gutierrez [facility]) [address] [place] [address] Virtual Appointments! Now offering safe and convenient virtual client appointments to anyone in [place]! Individual Therapy Couples/Relationship Therapy Trauma/EMDR Therapy Art Therapy Play Therapy Professor Of Environmental Engineering Support: Parenting Skills, Parent Child Interaction Therapy, Parent Infant Interaction Therapy Meditation Dietitian/Manager Primary Care Services Group Therapy Yoga https://www.JOYRIDE Auto Community/ Lillian Lozano [phone] Private Practice: Telehealth Only Specializes in EMDR for Trauma None documented in this encounter [facility] 11-01-2024 Telephone encounter Note Called patient and she stated that [employer] is a 3rd constitution party payor for [employer] through her Employer. I provided number for Billing to verify INN benefits [facility] 11-01-2024 Miscellaneous Notes Called patient and she stated that [employer] is a 3rd constitution party payor for [employer] through her Employer. I provided number for Billing to verify INN benefits Left a VM 11/01/24 asking patient to call. Making her aware the her insurance is OON. If patient calls in please connect to Wes[employer] @ [employer] documented in this encounter [facility] 11-01-2024 Telephone encounter Note Left a VM 11/01/24 asking patient to call. Making her aware the her insurance is OON. If patient calls in please connect to [employer] @ [employer] [facility] 10-25-2024 History of Present illness Narrative Maribel Brandt 10/25/2024 Date Of : 1990 Chief Complaint Patient presents with Amenorrhea Lmp 09/14/24, + HPT, US AT [facility] IN [place]. EDC 06/22/25. 5W5D, NO C/O HPI: Maribel Brandt is a 34 y.o. female who presents today for missed menses and positive HPT on 10/09. She was seen at [facility] in [place] and had US. No FHR yet but possible twins. US follow up there in 2 weeks but its not an official US with report. + anxiety. Recent increase in dose to 75mg. H/O hyperemesis last . B6 and Unisom did not work. Patient's last menstrual period was 09/14/2024 (exact date). EDC based on LMP: 06/21/25 Estimated weeks gestation: 5 week(s) and 6 day(s) Average Cycle length: monthly Vaginal bleeding:no Pelvic pain: no Currently taking a vitamin: yes Has nausea and/or vomiting: yes nausea Fatigue: yes Breast tenderness: yes Smoking: yes vaping nictotine working on quitting. Vapes equivalent to 1-2 cigs daily Takes Medications: Yes Review of Systems Constitutional: Positive for fatigue. Gastrointestinal: Positive for nausea. Negative for vomiting. Genitourinary: Negative for difficulty urinating, dysuria, frequency, menstrual problem, pelvic pain, vaginal bleeding, vaginal discharge and vaginal pain. OB History Para Term AB Living 1 1 0 1 0 1 SAB IAB Ectopic Multiple Live Births 0 0 0 0 1 # Outcome Date GA Lbr Devonte/2nd Weight Sex Type Anes PTL Lv 1 08/27/13 35w0d 5 lb 1 oz (2.296 kg) F Vag-Spont EPI WILL Complications: Preeclampsia, delivery Name: Eleazar Past Medical History: Diagnosis Date Anxiety Preeclampsia Past Surgical History: Procedure Laterality Date APPENDECTOMY 01/31/2018 Family History Problem Relation Name Age of Onset Bladder Cancer Father Colon cancer Maternal Grandmother Heart attack Maternal Grandfather Heart disease Maternal Grandfather Lung cancer Paternal Grandfather Social History Socioeconomic History Marital status: Spouse name: Not on file Number of children: Not on file Years of education: Not on file Highest education level: Not on file Occupational History Not on file Tobacco Use Smoking status: Former Current packs/day: 0.50 Types: Cigarettes Passive exposure: Never Smokeless tobacco: Current Tobacco comments: VAPE OCCASIONALLY Vaping Use Vaping status: Some Days Devices: Refillable tank Substance and Sexual Activity Alcohol use: Not Currently Drug use: No Sexual activity: Yes Partners: Male Other Topics Concern Not on file Social History Narrative Not on file Social Drivers of Health Financial Resource Strain: Low Risk (10/24/2024) Overall Financial Resource Strain (CARDIA) Difficulty of Paying Living Expenses: Not hard at all Food Insecurity: No Food Insecurity (10/24/2024) Hunger Vital Sign Worried About Running Out of Food in the Last Year: Never true Ran Out of Food in the Last Year: Never true Transportation Needs: Unmet Transportation Needs (10/24/2024) PRAPARE - Transportation Lack of Transportation (Medical): Yes Lack of Transportation (Non-Medical): Yes Physical Activity: Insufficiently Active (10/24/2024) Exercise Vital Sign Days of Exercise per Week: 2 days Minutes of Exercise per Session: 20 min Stress: No Stress Concern Present (10/24/2024) [employer] [place] [employer] - Occupational Stress Questionnaire Feeling of Stress : Only a little Social Connections: Moderately Isolated (10/24/2024) Social Connection and Isolation Panel [NHANES] Frequency of Communication with Friends and Family: More than three times a week Frequency of Social Gatherings with Friends and Family: Twice a week Attends Nondenominational Services: Never Active Member of Clubs or Organizations: No Attends Club or Organization Meetings: Patient declined Marital Status: Intimate Partner Violence: Not on file Housing Stability: Unknown (10/24/2024) Housing Stability Vital Sign Unable to Pay for Housing in the Last Year: No Number of Times Moved in the Last Year: Not on file Homeless in the Last Year: No MEDICATIONS: Current Outpatient Medications Medication Sig Dispense Refill sertraline (Zoloft) 50 MG tablet Take 50 mg by mouth daily. doxylamine (Unisom SleepTabs) 25 MG tablet Take 1 tablet (25 mg) by mouth Nightly. 30 tablet 1 ondansetron ODT (Zofran-ODT) 4 MG disintegrating tablet Take 1 tablet (4 mg) by mouth every 8 hours as needed for nausea or vomiting. 30 tablet 1 MV & Min w/FA-DHA ( Adult Gummy/DHA/FA) 0.4-25 MG chewable tablet Chew. pyridoxine (Vitamin B-6) 25 MG tablet Take one 25mg tablet three times a day by mouth 90 tablet 1 No current facility-administered medications for this visit. ALLERGIES: Allergies as of 10/25/2024 - Reviewed 10/25/2024 Allergen Reaction Noted Oxycodone Nausea And Vomiting 01/31/2018 Physical Exam Vitals reviewed. Constitutional: Appearance: Normal appearance. Neurological: Mental Status: She is alert. Psychiatric: Mood and Affect: Mood normal. Behavior: Behavior normal. Thought Content: Thought content normal. Judgment: Judgment normal. BP 122/70 Pulse 80 Wt 165 lb 12.8 oz (75.2 kg) LMP 09/14/2024 (Exact Date) BMI 31.33 kg/m DIAGNOSIS: Maribel was seen today for amenorrhea. Diagnoses and all orders for this visit: with inconclusive viability, single or unspecified fetus (Primary) - Cancel: Antibody screen; Future - Cancel: ABO Group; Future - Cancel: Rh Type; Future - Cancel: hCG, quantitative; Future - US OB transvaginal; Future - Cancel: Antibody screen - Cancel: ABO Group - Cancel: Rh Type - Cancel: hCG, quantitative - Antibody screen; Future - ABO Group; Future - Rh Type; Future - hCG, quantitative; Future Other orders - doxylamine (Unisom SleepTabs) 25 MG tablet; Take 1 tablet (25 mg) by mouth Nightly. - pyridoxine (Vitamin B-6) 25 MG tablet; Take one 25mg tablet three times a day by mouth - ondansetron ODT (Zofran-ODT) 4 MG disintegrating tablet; Take 1 tablet (4 mg) by mouth every 8 hours as needed for nausea or vomiting. PLAN: Quant HCG and ABO RH ordered. Will notify patient of quant HCG results. She is aware that she made need repeated quant HCG's every 48hours depending on what quant result is. Schedule D&V US. Reviewed relief measures for nausea and vomiting including over the counter B6 and doxylamine. RX for both to pharmacy. Zofran to pharmacy. OB med list to patients Mychart. Advised patient to contact the office with N/V Not improved or worsening), vaginal spotting/bleeding or pelvicpain prior to next appointment. Patient agrees with plan of care. Follow up for US for dating and viability, Office visit. DEQUAN Yates CNP documented in this encounter [facility] 10-25-2024 Instructions DEQUAN Rudd CNP - 10/25/2024 1:20 PM EST Obstetrical Calendar Weeks Gestation: Discussion and Testing 4-8 weeks - Visit with provider to establish hcg blood levels and order ultrasound. 6-13 Weeks - Dating and Viability Ultrasound and Visit with provider to discuss US results. 10-13 weeks - Initial OB intake and physical with a Wheel Blocker or Nurse Practitioner. Obtain complete medical, genetic and obstetrical history blood work ordered education Discuss testing options: 1st trimester screening (provides a more accurate assessment of a woman s risk for carrying a baby with Down Syndrome, Trisomy 13 and Trisomy 18. Carrier Screening for Cystic Fibrosis, Spinal Muscular Atrophy or Fragile x. AFP for Neural Tube Defect. Other tests if appropriate due to risk factors. Discuss Physician and Nurse Wheel Blocker options Discuss hospital for delivery 10-14 Weeks - Visit with OB Provider Review Results of Labs Discuss 1st Trimester Screening or Free Cell DNA if you wish to pursue Discuss indications or need for MFM referral if High Risk, or if need for Amniocentesis or CVS (Chorionic villus sampling) test to diagnose chromosomal abnormalities At Each visit - Check Blood pressure, Check urine, check weight and heart tones as indicated 12-16 weeks - Visit with OB Provider Discuss 2nd trimester screening if desired Check blood pressure, urine, weight and heart tones Review OB provider options Schedule anatomy US for 18-20 weeks 18-20 weeks - Anatomy US and Visit with Provider Check weight, blood pressure and urine Listen to heart beat and check uterine size Review results of anatomy US 22-24 weeks - Visit with OB Provider Check weight, blood pressure and urine Listen to heart beat and check uterine size Discuss 1 hour glucose test for gestational diabetes Order blood work for anemia and glucose test to be done around 26-28 weeks Order Antibody screen and rhogam IF Rh negative blood type 26-28 weeks - Visit with OB Provider Check weight, blood pressure and urine Listen to heart beat and check uterine size Review results of glucose test and anemia test if done Discuss plans, preregistration, choosing motel maid, taking childbirth classes 30 - 36 weeks - Visits with OB provider every 2 weeks Check weight, blood pressure and urine Listen to heart beat and check uterine size High risk testing, if needed, will begin weekly - Please schedule all of theses ahead of time. Discuss circumcision, breast feeding, preregistration. Discuss plans, consider CNM or physician for delivery. 36-40 weeks - Visits with Ob provider every week Check weight, blood pressure and urine Listen to heart beat and check uterine size Obtain vaginal/rectal culture for Group B Strep Cervical exam 41 weeks - Visit with OB provider Discuss option for post term testing with Non-Stress test and DIANA Discuss and schedule induction of labor prior to 42 weeks ____ Food Safety in The following tips will help keep your food safe from harmful bacteria. For more information, visit foodsafety.gov. Keep things clean Wash your hands well before and after handling food. Always wash your hands after using the bathroom, changing diapers or handling pets. Wash fruits and vegetables under running water before eating. Wash utensils, dishes, cutting boards, counters and sinks with hot, soapy water after they come in contact with raw meat, poultry, seafood, eggs or unwashed fresh produce. Clean up spills in your refrigerator right away. Look at expiration dates on containers. Once a week throw away food that should no longer be eaten. Keep things Keep raw meat, poultry and seafood separate from other items in your grocery cart and refrigerator. Put uncooked meat, poultry and fish in sealed containers or plastic bags when storing them in the refrigerator. Use one cutting board for raw meats and a different one for fruits and vegetables. Place cooked meat, poultry and seafood on a clean plate. Do not reuse a plate that held the raw food. Keep things chilled Keep your refrigerator at 40 F or below and your freezer at zero F or below. Refrigerate food quickly. Cold temperatures keep most harmful bacteria from multiplying. Refrigerate perishable foods within two hours of purchase. (Refrigerate within one hour if the temperature is more than 90 F.) Refrigerate or freeze prepared foods and leftovers within two hours (within one hour if the temperature is more than 90 F). Use shallow containers for quicker cooling. Don't overpack the refrigerator; leave room for the cold air to circulate. Never thaw foods on the counter. Thaw foods in the refrigerator, in cold water, or in a microwave. Cook things well Use a clean, quick-read food thermometer to determine the temperature of foods. Cook foods until they have reached the proper temperature: roast beef, steaks, pork chops or roast to at least 145 F ground beef to at least 160 F ground turkey, chicken breasts or whole poultry to at least 165 F fish until it's opaque and flakes easily with a fork (145 F) eggs until the yolks and whites are firm egg dishes to 160 F Reheat leftovers to 165 F. Other tips to prevent food-related illness Listeria is a kind of bacteria that can contaminate foods and cause an infection called listeriosis. This is a serious illness that can cause premature labor or to a developing or baby. To reduce your risk of listeriosis: Make sure all milk and milk products are pasteurized. Do not eat unpasteurized soft cheeses such as feta, Brie, Camembert, blue-veined cheeses and [place]otho-style cheeses. Limit deli foods like prepared salads or cheeses. Reheat hot dogs, lunch meats and deli meats until they are steaming hot. Do not eat refrigerated p t or meat spreads. (Canned or shelf-stable spreads are fine.) Only eat refrigerated smoked seafood as an ingredient in a cooked dish, such as a casserole. Reheat pre-cooked, take-home meals to 165 F. Choosing fish wisely Fish is a good source of protein, contains fatty acids, and is low in saturated fat. However, any fish (store-bought or fresh-caught) could contain contaminants such as mercury or PCBs that can harm a developing baby. It's best to vary the kind of fish you eat and limit the amount of fish you eat to one to two meals a week. The amount of fish in a meal depends on your body weight. If you weigh 150 pounds, you could safely eat one-half pound (8 ounces) of fish (precooked weight). To adjust the amount of fish, subtract or add one ounce of fish for every 20 pounds of body weight: If you weigh 130 pounds, eat 7 ounces of fish. If you weigh 150 pounds, eat 8 ounces of fish. If you weigh 170 pounds, eat 9 ounces of fish. Tips to help you choose fish Avoid raymond mackerel, swordfish, tilefish, marlin, orange roughy, and shark. These are large, salt-water fish most likely to have high levels of mercury. Avoid eating these locally caught fish: walleye larger than 20 inches, northern pike larger than 30 inches, and all muskellunge (muskies). Limit eating canned albacore tuna to one 6-ounce meal a month. Light tuna is a smaller fish and less likely to have high levels of mercury. Eat up to two meals a week of farm-raised or wild salmon from the [place] or [place], not from the [place]. Avoid raw fish, sushi and sashimi because it could contain harmful bacteria. Caffeine We don t know a lot about the effects of caffeine during on you and your baby. So it s best to limit the amount you get each day. If you re , limit caffeine to 200 milligrams each day. This is about the amount in 1 8-ounce cups of coffee or one 12-ounce cup of coffee. If you re , limit caffeine to no more than two cups of coffee a day. F Information from October Information: Do's and Don'ts Even with all the shahida and anticipation can bring, it is not uncommon for a [id number] to have some questions and concerns -- not only about changes to expect throughout her , but also concerns regarding the care of her body to ensure the health of her unborn child. Listed below, you will find some additional information that covers how to care for your body while you are . Do: Plan for weight gain Weight gain during varies from woman to woman and depends on body type. Each woman should talk with her care provider about the appropriate amount of weight gain, as well as diet and exercise. During your , normal weight gain of 0-5 pounds in the first 20 weeks is normal. Most women will gain about a pound a week between 20-40 weeks . However, if your BMI is above or below normal, the following recommendation should be followed: Underweight - BMI Less than 18: Total weight gain 28-40 lbs. Normal Weight - BMI 19-25: Total weight gain 25-35 lbs Overweight - BMI 26-30: Total weight gain 15-25 lbs Obese - BMI over 30: Total weight gain 11-20 lbs If you are having trouble trying to figure out a diet that works for you, please let us know and we can schedule a nutrition consultation for you with our research attorney. Do: Maintain a balanced diet According to the FDA, about 300 extra calories are needed daily to maintain a healthy . These calories should come from a balanced diet of protein, fruits, vegetables, and whole grains, with sweets and fats kept to a minimum. A healthy, well-balanced diet during can also help to minimize some symptoms such as nausea and constipation. The bahena to a healthy is making sure you have a good nutrient dense diet. This means that the foods you eat have a low amount of calories and sugars and a high amount of vitamins, minerals and protein. Common examples of nutrient dense foods are colorful fruits and vegetables especially those with dark, rich colors such as leafy green vegetables, berries and carrots. Whole grains, nuts and seeds are also considered nutrient dense. During your , You and your baby need about 60-100 grams of protein every day. Protein rich foods include meat, fish, eggs, almonds cottage cheese, Salvadorean yogurt, low fat cheese and low fat milk. Most women notice that if they eat 60-100 grams of protein every day and eat 7-12 cups of veggies and fruit every day that they don't crave sweet, simple carbohydrates such as bread, bagels, cookies, chips and sugary foods. Simple carbohydrates need to be eaten in moderation throughout as excess carbohydrate intake can cause excess weight gain which can increase your risk for gestational diabetes, gestational hypertension and excessive growth of the baby Fluid intake is also an important part of healthy nutrition. Women can take in enough fluids by drinking 6 to 8 glasses of water each day, in addition to the fluids in juices and soups. An expectant mother should talk with her health care provider or supervisor cook house about restricting her intake of caffeine and artificial sweeteners. All alcohol should be avoided in . Do: Exercise during : Regular exercise during , with the approval of your physician or supervisor cook house, can often help to minimize the daily physical discomforts and help with the recovery after the baby is born. There is evidence that physical activity may be especially beneficial for women with gestational diabetes. Women who exercised and were physically fit before can safely continue exercising throughout the . Women who were inactive before or who have medical or complications should consult with their physician or supervisor cook house before beginning any exercise during . All women should be evaluated by their physician or supervisor cook house before beginning or continuing an exercise program while . Exercise for women may not be safe if they have any of the following conditions: labor in current or past pregnancies Vaginal bleeding Cervical problems Leaking of amniotic fluid Shortness of breath Dizziness and/or fainting Decreased activity or other complications Increased heart rate (tachycardia) Certain health problems, such as high blood pressure or heart disease Types of exercise to avoid during : Horseback riding Water skiing Scuba diving High altitude skiing Contact sports Any exercise that can cause a serious fall Exercising on your back after the first trimester (because of reduced blood flow to the uterus) Vigorous exercise in hot, humid weather, as women are less efficient at exchanging heat Exercise involving the Valsalva maneuver (holding one's breath during exertion), which can increase intra-abdominal pressure on the uterus Don't: Expose yourself to unnecessary risks if you work during Many women work during without any complications. Being able to work safely, in some cases, until the day of delivery depends on the type of work performed and the [id number]'s medical condition. Taking proper precautions to avoid these risks on the job can help keep you and your baby healthy throughout the . The [employer] recommends the following for working women: Take a break every few hours Take a longer meal break every four hours Drink plenty of fluids while on the job Vary work positions continuously, from sitting to standing and walking Minimize heavy lifting and bending Proper lifting techniques during Weight gain during adds strain to the back. Proper lifting can help reduce the strain and prevent injury. When lifting, a woman should keep in mind the following recommendations: Stand with feet shoulder-width apart Tuck in the buttocks Bend at the knees Lift with the arms and legs, not the back Limit the amount and weight of the items lifted Computer use in Today, many occupations involve the use of a computer. Computers have also been associated with many complaints, such as neck, wrist, hand, shoulder, and back pain from prolonged sitting in the same position and eyestrain. To alleviate these symptoms, the following may help: Take frequent work breaks Use detachable keyboards and adjustable chairs and tables Use non-reflective glass on the screen, adjust the screen lighting and contrast, and install indirect lighting Do: Discuss sex during with your health care provider In most cases, sex during is safe. In fact, with your health care provider's approval, sexual relations can continue until delivery. However, fluctuating hormone levels and certain symptoms such as nausea and tiredness can temporarily reduce a woman's libido (sex drive). In addition, visible changes in the woman's body may affect sexual desire. Always consult your healthcare provider concerning any questions you may have about sex during . Sexual intercourse may have to be avoided if the following symptoms occur: Vaginal bleeding Pain Leaking of amniotic fluid (the fluid surrounding your baby in the womb) Contractions Do: Discuss the best sleeping positions with your health care provider As the fetus grows within the uterus, lying on your back is not recommended due to pressure on the inferior vena cava, a major vein that returns blood from the lower body to the heart. In addition, the increased pressure on the back and intestines can cause discomfort. The best sleeping position for a woman is on her side, because it allows for maximum blood flow to the fetus and improves kidney function in the mother. Improved kidney flow helps to reduce any swelling. Placing a pillow between the knees can help a woman sleep more comfortably on her side. __ Information: Do's and Don'ts Even with all the shahida and anticipation can bring, it is not uncommon for a [id number] to have some questions and concerns -- not only about changes to expect throughout her , but also concerns regarding the care of her body to ensure the health of her unborn child. Listed below, you will find some additional information that covers how to care for your body while you are . Do: Plan for weight gain Weight gain during varies from woman to woman and depends on body type. Each woman should talk with her care provider about the appropriate amount of weight gain, as well as diet and exercise. During your , normal weight gain of 0-5 pounds in the first 20 weeks is normal. Most women will gain about a pound a week between 20-40 weeks . However, if your BMI is above or below normal, the following recommendation should be followed: Underweight - BMI Less than 18: Total weight gain 28-40 lbs. Normal Weight - BMI 19-25: Total weight gain 25-35 lbs Overweight - BMI 26-30: Total weight gain 15-25 lbs Obese - BMI over 30: Total weight gain 11-20 lbs If you are having trouble trying to figure out a diet that works for you, please let us know and we can schedule a nutrition consultation for you with our research attorney. Do: Maintain a balanced diet According to the FDA, about 300 extra calories are needed daily to maintain a healthy . These calories should come from a balanced diet of protein, fruits, vegetables, and whole grains, with sweets and fats kept to a minimum. A healthy, well-balanced diet during can also help to minimize some symptoms such as nausea and constipation. The bahena to a healthy is making sure you have a good nutrient dense diet. This means that the foods you eat have a low amount of calories and sugars and a high amount of vitamins, minerals and protein. Common examples of nutrient dense foods are colorful fruits and vegetables especially those with dark, rich colors such as leafy green vegetables, berries and carrots. Whole grains, nuts and seeds are also considered nutrient dense. During your , You and your baby need about 60-100 grams of protein every day. Protein rich foods include meat, fish, eggs, almonds cottage cheese, Salvadorean yogurt, low fat cheese and low fat milk. Most women notice that if they eat 60-100 grams of protein every day and eat 7-12 cups of veggies and fruit every day that they don't crave sweet, simple carbohydrates such as bread, bagels, cookies, chips and sugary foods. Simple carbohydrates need to be eaten in moderation throughout as excess carbohydrate intake can cause excess weight gain which can increase your risk for gestational diabetes, gestational hypertension and excessive growth of the baby Fluid intake is also an important part of healthy nutrition. Women can take in enough fluids by drinking 6 to 8 glasses of water each day, in addition to the fluids in juices and soups. An expectant mother should talk with her health care provider or supervisor cook house about restricting her intake of caffeine and artificial sweeteners. All alcohol should be avoided in . Do: Exercise during : Regular exercise during , with the approval of your physician or supervisor cook house, can often help to minimize the daily physical discomforts and help with the recovery after the baby is born. There is evidence that physical activity may be especially beneficial for women with gestational diabetes. Women who exercised and were physically fit before can safely continue exercising throughout the . Women who were inactive before or who have medical or complications should consult with their physician or supervisor cook house before beginning any exercise during . All women should be evaluated by their physician or supervisor cook house before beginning or continuing an exercise program while . Exercise for women may not be safe if they have any of the following conditions: labor in current or past pregnancies Vaginal bleeding Cervical problems Leaking of amniotic fluid Shortness of breath Dizziness and/or fainting Decreased activity or other complications Increased heart rate (tachycardia) Certain health problems, such as high blood pressure or heart disease Types of exercise to avoid during : Horseback riding Water skiing Scuba diving High altitude skiing Contact sports Any exercise that can cause a serious fall Exercising on your back after the first trimester (because of reduced blood flow to the uterus) Vigorous exercise in hot, humid weather, as women are less efficient at exchanging heat Exercise involving the Valsalva maneuver (holding one's breath during exertion), which can increase intra-abdominal pressure on the uterus Don't: Expose yourself to unnecessary risks if you work during Many women work during without any complications. Being able to work safely, in some cases, until the day of delivery depends on the type of work performed and the [id number] medical condition. Taking proper precautions to avoid these risks on the job can help keep you and your baby healthy throughout the . The [employer] recommends the following for working women: Take a break every few hours Take a longer meal break every four hours Drink plenty of fluids while on the job Vary work positions continuously, from sitting to standing and walking Minimize heavy lifting and bending Proper lifting techniques during Weight gain during adds strain to the back. Proper lifting can help reduce the strain and prevent injury. When lifting, a woman should keep in mind the following recommendations: Stand with feet shoulder-width apart Tuck in the buttocks Bend at the knees Lift with the arms and legs, not the back Limit the amount and weight of the items lifted Computer use in Today, many occupations involve the use of a computer. Computers have also been associated with many complaints, such as neck, wrist, hand, shoulder, and back pain from prolonged sitting in the same position and eyestrain. To alleviate these symptoms, the following may help: Take frequent work breaks Use detachable keyboards and adjustable chairs and tables Use non-reflective glass on the screen, adjust the screen lighting and contrast, and install indirect lighting Do: Discuss sex during with your health care provider In most cases, sex during is safe. In fact, with your health care provider's approval, sexual relations can continue until delivery. However, fluctuating hormone levels and certain symptoms such as nausea and tiredness can temporarily reduce a woman's libido (sex drive). In addition, visible changes in the woman's body may affect sexual desire. Always consult your healthcare provider concerning any questions you may have about sex during . Sexual intercourse may have to be avoided if the following symptoms occur: Vaginal bleeding Pain Leaking of amniotic fluid (the fluid surrounding your baby in the womb) Contractions Do: Discuss the best sleeping positions with your health care provider As the fetus grows within the uterus, lying on your back is not recommended due to pressure on the inferior vena cava, a major vein that returns blood from the lower body to the heart. In addition, the increased pressure on the back and intestines can cause discomfort. The best sleeping position for a woman is on her side, because it allows for maximum blood flow to the fetus and improves kidney function in the mother. Improved kidney flow helps to reduce any swelling. Placing a pillow between the knees can help a woman sleep more comfortably on her side. ======== Genetic Screening Tests What is genetic testing? genetic testing gives [id number] information about whether their fetus has certain genetic disorders. What are genetic disorders? Genetic disorders are caused by changes in a person s genes or chromosomes. Aneuploidy is a condition in which there are missing or extra chromosomes. In a trisomy, there is an extra chromosome. In a monosomy, a chromosome is missing. Inherited disorders are caused by changes in genes called mutations. Inherited disorders include sickle cell disease, cystic fibrosis, Isai-Sachs disease, and many others. In most cases, both parents must carry the same gene to have an affected child. What are genetic screening tests? These tests can tell you the chances that your fetus has an aneuploidy and a few additional disorders. This FAQ focuses on these tests. What are the different types of genetic screening tests? Screening tests can tell you your risk of having a baby with certain disorders. They include carrier screening and genetic screening tests: Carrier screening is done on parents (or those just thinking about becoming parents) using a blood sample or tissue sample swabbed from inside the cheek. These tests are used to find out whether a person carries a gene for certain inherited disorders. Carrier screening can be done before or during . genetic screening tests of the woman s blood and findings from ultrasound exams can screen the fetus for aneuploidy; defects of the brain and spine called neural tube defects; and some defects of the abdomen, heart, and facial features. This focuses on these tests. They include first-trimester screening and second-trimester screening What is first-trimester screening? Aneupoidy screening or NIPT (non-invasive testing) is done with maternal blood taken sometime after 12weeks 4 days. This test helps determine the risk for trisomy 21, trisomy 13 and trisomy 18. It also detects abnormalities of the sex chromosomes such as monosomy X and Turners syndrome. What do the different results of screening tests mean? Results of blood screening tests for aneuploidy are reported as the level of risk that the disorder might be present: A positive screening test result for aneuploidy means that your fetus is at higher risk of having the disorder compared with the general population. It does not mean that your fetus definitely has the disorder. A negative result means that your fetus is at lower risk of having the disorder compared with the general population. It does not rule out the possibility that your fetus has the disorder. What should I consider when deciding whether to have genetic testing? It is your choice whether to have testing. Your personal beliefs and values are important factors in the decision about testing. It can be helpful to think about how you would use the results of screening tests in your care. Remember that a positive screening test tells you only that you are at higher risk of having a baby with Down syndrome or another aneuploidy. A diagnostic test should be done if you want to know a more certain result. Some parents want to know beforehand that their baby will be born with a genetic disorder. This knowledge gives parents time to learn about the disorder and plan for the medical care that the child may need. Some parents may decide to end the in certain situations. Other parents do not want to know this information before the child is born. In this case, you may decide not to have follow-up diagnostic testing if a screening test result is positive. Or you may decide not to have any testing at all. There is no right or wrong answer. Glossary Amniocentesis: A procedure in which a needle is used to withdraw and test a small amount of amniotic fluid and cells from the sac surrounding the fetus. Aneuploidy: Having an abnormal number of chromosomes. Carrier Screening: A test done on a person without signs or symptoms to find out whether he or she carries a gene for a genetic disorder. Chorionic Villus Sampling (CVS): A procedure in which a small sample of cells is taken from the placenta and tested. Cystic Fibrosis: An inherited disorder that causes problems in digestion and breathing. Down Syndrome: A genetic disorder that causes abnormal features of the face and body, medical problems such as heart defects, and intellectual disability. Most cases of Down syndrome are caused by an extra chromosome 21 (trisomy 21). Many children with Down syndrome live to adulthood. Monosomy: A condition in which there is a missing chromosome. Neural Tube Defects: defects that result from incomplete development of the brain, spinal cord, or their coverings. Nuchal Translucency Screening: A test in which the size of a collection of fluid at the back of the neck is measured by ultrasound to screen for certain defects, such as Down syndrome, trisomy 18, or heart defects. Screening Tests: Tests that look for possible signs of disease in people who do not have symptoms. Sickle Cell Disease: An inherited disorder in which red blood cells have a crescent shape, causing chronic anemia and episodes of pain. It occurs most often in Americans. Isai-Sachs Disease: An inherited defect that causes intellectual disability, blindness, seizures, and , usually by age 5 years. It most commonly affects people of Eastern and Central Pentecostal, [place], and [place] descent, but it can occur in anyone. Trisomy 13 (Patau Syndrome): A chromosomal disorder that causes serious problems with the brain and heart as well as extra fingers and toes, cleft palate and lip, and other defects. Most infants with trisomy 13 within the first year of life. Trisomy 18 (Courtney Syndrome): A chromosomal disorder that causes severe intellectual disability and serious physical problems such as a small head, heart defects, and deafness. Most of those affected with trisomy 18 before or within the first month of life. Copyright February 2017 by the [employer] ===== Panorama NIPT Screen Information As an expectant parent, you may want to learn everything you can about the health of your baby. The Panorama Screen checks for the most common chromosomal disorders, such as Down syndrome, Trisomy 18 and Trisomy 13 that could affect your baby s health. This noninvasive test requires only a blood draw, so it s safe for both mom and baby. This test looks at DNA from the that crosses into the mother s blood to screen for chromosomal disorders that can cause serious defects, intellectual disability, or other health problems. Any baby can be born with a chromosome disorder, which is usually caused by a random error of cell division very early in . As women get older, the chance of having a baby with a chromosome disorder goes up. However, young women can have babies with these conditions. How does noninvasive testing work? DNA is the blueprint of life. It carries all of the genetic information needed for our bodies to function. A section of DNA with a specific job is called a gene. DNA is packaged into bundles called chromosomes. Healthy humans have 23 pairs of chromosomes. Any more or less can lead to problems. DNA from the placenta naturally crosses into the mother s bloodstream as a progresses. For the test, a small sample of your blood is drawn and the DNA is analyzed to check for certain chromosomal disorders, which can cause serious defects, intellectual disability, or other health problems in the baby. What conditions can this test detect? Down syndrome (trisomy 21) is caused by an extra copy of chromosome 21. It affects about 1 in 700 newborns,and is the most common genetic cause of mild to moderate intellectual disability. Children with trisomy 21 commonly have typical facial features, and a higher risk for certain health problems, including heart defects, other defects, and hearing and vision problems. Courtney syndrome (trisomy 18) is caused by an extra copy of chromosome 18. It affects about 1 in 5,000 newborns. Children with trisomy 18 may have severe intellectual disability along with serious defects of the heart, brain, and other organs and usually survive less than one year. It is common for pregnancies with trisomy 18 to end in miscarriage or stillbirth. Patau syndrome (trisomy 13) is caused by an extra copy of chromosome 13. It affects about 1 in 16,000 newborns. Children with trisomy 13 may have severe intellectual disability and many serious defects (heart defects, extra fingers, cleft lip and palate, brain and abdominal wall defects) and usually survive less than one year. It is common for pregnancies with trisomy 13 to end in miscarriage or stillbirth. King syndrome (monosomy X)* is caused by a missing X chromosome in females. It affects about 1 in 2,000 female newborns. Girls with monosomy X commonly have heart defects, growth delays, infertility and may have minor learning difficulties. It is common for pregnancies with monosomy X to end in miscarriage or stillbirth. Klinefelter syndrome (XXY)* is caused by an extra X chromosome in males. It affects between 1 in 500 and 1 in 1,000 males. Children with Klinefelter syndrome commonly have delayed or absent puberty, learning difficulties, and tall stature. Most males with Klinefelter syndrome are infertile. XYY syndrome or XXX syndrome* are caused by an extra Y chromosome in males (XYY) or an extra X chromosome in females (XXX). It affects about 1 in 1,000 newborns. Children with XYY syndrome can have tall stature and an increased risk for learning difficulties or delayed motor skills. Fertility is not usually affected and some individuals have no symptoms at all. DiGeorge syndrome (22q11.2 deletion) is caused by a small missing piece of chromosome 22. It affects from 1 in 2,000 to 1 in 4,000 newborns, and is often not diagnosed for years. It results in poor development in several body systems, and can include growth delays, feeding problems, congenital heart disease, gastrointestinal difficulties, breathing concerns, immune deficiencies, and many other issues. Early diagnosis is the bahena to properly addressing the issues. * May be included in the test. Cannot be evaluated in twin pregnancies. screening helps you prepare for life While most babies are born healthy, some will be born with a chromosomal disorder. Knowing about the health of the baby during allows you to make the most informed choices for your family. This information can help guide the management of the , and could also give you critical time to prepare--physically, financially, and emotionally--for the of a child with extra needs. ====== Carrier Screening What is carrier screening? Carrier screening is a type of genetic test that can tell you whether you carry a gene for certain genetic disorders. When it is done before or during , it allows you to find out the chances of having a child with a genetic disorder. What is a carrier? For some genetic disorders, it takes two genes for a person to have the disorder. A carrier is a person who has only one gene for a disorder. Carriers usually do not have symptoms or have only mild symptoms. Because they often do not know that they have a gene for a disorder, they can pass the gene on to their children. What are the chances of having a child with a genetic disorder? If both parents are carriers of a recessive gene for a disorder, there is a 25% (1-in-4) chance that their children will get the gene from each parent and will have the disorder. There is a 50% (1-in-2) chance that the children will be carriers of the disorder--just like the carrier parents. If only one parent is a carrier, there is a 50% (1-in-2) chance that the child will be a carrier of the disorder. How is carrier screening done? Carrier screening involves testing a sample of blood, saliva, or tissue from the inside of the cheek. Test results can be negative (you do not have the gene) or positive (you do have the gene). Typically, the partner who is most likely to be a carrier is tested first. If test results show that the first partner is not a carrier, then no additional testing is needed. If test results show that the first partner is a carrier, the other partner is tested. Once you have had a carrier screening test for a specific disorder, you do not need to be tested again for that disorder. When sugarcane planter screening be done? Some people decide to have carrier screening before having children. Carrier screening also can be done during . Getting tested before gives you a greater range of options and more time to make decisions. Do I have to have carrier screening? Carrier screening is a voluntary decision. You can choose to have carrier screening, or you can choose not to. There is no right or wrong choice. What carrier screening tests are available? We offer a carrier screening panel for 14 diseases. This test is called Horizon If you re an expectant parent, or thinking about starting a family, you probably want to do everything you can to prepare. This test provides a closer look at your genes, to see if you are at risk of passing a hereditary genetic disorder to your child. The Panel checks for carrier status of three of the most common genetic disorders that can cause serious health problems, intellectual disability, or a shorter life. How accurate is carrier screening? No test is perfect. In a small number of cases, test results can be wrong. A negative test result when you have a gene for the disorder tested is called a false-negative result. A positive test result when you do not have a gene for a disorder is called a false-positive result. Also, because carrier screening looks for only a limited number of genes, it is possible that you are a carrier of a genetic disorder even if your test results are negative.. 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 Do NOT take Sudafed if you have high blood pressure Robitussin Mucinex Any throat or cough drops, or sprays Chlor-Trimeton Vicks Nasal Sprays [place] Nasal Plover (saline nose spray) Allergy Medication Zyrtec, Claritin Pain Reliever and Fever Sas Sql Developer Tylenol, Extra Strength Tylenol, Acetaminophen, Panadol, Tempra, Anacin Aspirin Free Antacids Maalox, Maalox Plus, Mylanta, Mylanta II, Riopan, Riopan Plus, Tums, Rolaids, Gaviscon, Pepcid, Zantac Stool Softeners Colace, Surfak, Metamucil, Citrucel, Fibercon Constipation Mineral Oil, Milk of Magnesia, Miralax Increase fluid and fiber! Nausea Unisom sleep tabs 25 mg (Doxylamine) take one each evening and Vitamin B-6 (25 mg) take 3 times per day Tatum capsules, Tatum tea, Natural gingerale Diarrhea Imodium A/D, Pedialyte, Rehydrate, Gatorade, BRAT diet -bananas, rice, applesauce and toast NOTE: If diarrhea persists more than two days, or if bloody, call the office! Gas Beano, Gas-X (simethicone) Sleep Aid Tylenol PM, Benadryl, Sleepy Time Tea == Nausea and Vomiting in How common is nausea and vomiting of ? Nausea and vomiting of is a very common condition. Although nausea and vomiting of often is called morning sickness, it can occur at any time of the day. Nausea and vomiting of usually is not harmful to the developing baby, but it can have a serious effect on your life, including your ability to work or do your normal daily activities. When does nausea and vomiting of start? Nausea and vomiting of usually starts before 9 weeks of . For most women, it goes away by the second trimester (14 weeks of ). For some women, it lasts for several weeks or months. For a few women, it lasts throughout the entire . What is the difference between mild and severe nausea and vomiting of ? Some women feel nauseated for a short time each day and may vomit once or twice. This usually is defined as mild nausea and vomiting of . In more severe cases, nausea lasts several hours each day and vomiting occurs more frequently. Deciding to seek treatment depends on how much nausea and vomiting of affects your life and causes you concern, not whether your condition is mild or severe. What is hyperemesis gravidarum? Hyperemesis gravidarum is the most severe form of nausea and vomiting of . It occurs in up to 3% of pregnancies. This condition may be diagnosed when a woman has lost 5% of her prepregnancy weight and has other problems related to dehydration (loss of body fluids). Women with hyperemesis gravidarum need treatment to stop their vomiting and restore body fluids. Sometimes treatment in a hospital is needed. Am I at risk of severe nausea and vomiting of ? If you have any of the following factors, your risk of severe nausea and vomiting of may be increased: Being with more than one baby (multiple ) Past with nausea and vomiting (either mild or severe) Your mother or sister had severe nausea and vomiting of History of motion sickness or migraines Being with a female fetus Could nausea and vomiting during be caused by another medical condition? Some medical conditions can cause nausea and vomiting during . These include an ulcer, food-related illness, thyroid disease, or gallbladder disease. Your rural health consultant may suspect that you have one of these conditions if you have signs or symptoms that do not usually occur with nausea and vomiting of : Nausea and vomiting that occurs for the first time after 9 weeks of Abdominal pain or tenderness Fever Headache Enlarged thyroid gland (swelling in the front of the neck) Can nausea and vomiting of affect my baby? Having nausea and vomiting of usually does not harm your health or your baby s health. It does not mean your baby is sick. It can become more of a problem if you cannot keep down any food or fluids and begin to lose weight. When this happens, it sometimes can affect the baby s weight at . You also can develop problems with your thyroid, liver, and fluid balance. When is the best time to treat nausea and vomiting of ? Because severe nausea and vomiting of is hard to treat and can cause health problems, many experts recommend early treatment so that it does not become severe. What can I do to feel better if I have nausea and vomiting of ? Diet and lifestyle changes may help you feel better. You may need to try more than one of these suggestions: Take a multivitamin. Try eating dry toast or crackers in the morning before you get out of bed to avoid moving around on an empty stomach. Drink fluids often. Avoid smells that bother you. Eat small, frequent meals instead of three large meals. Try bland foods. For example, the BRUCE diet (bananas, rice, applesauce, toast, and tea) is low in fat and easy to digest. Try tatum shaunna made with real tatum, tatum tea made from fresh grated tatum, tatum capsules, and tatum candies. If you do vomit a lot, it can cause some of your tooth enamel to wear away. This happens because your stomach contains a lot of acid. Rinsing your mouth with a teaspoon of baking soda dissolved in a cup of water may help neutralize the acid and protect your teeth. Is there medical treatment for nausea and vomiting of ? If diet and lifestyle changes do not help your symptoms, or if you have severe nausea and vomiting of , medical treatment may be needed. If other medical conditions are ruled out, certain medications can be given to treat nausea and vomiting of : Vitamin B6 and doxylamine--Vitamin B6 is a safe, cugv-qqd-zgfzdpy treatment that may be tried first. Doxylamine, a medication found in vgyq-xou-uamvmzp sleep aids, may be added if vitamin B6 alone does not relieve symptoms. A prescription drug that combines vitamin B6 and doxylamine is available. Both drugs--taken alone or together--have been found to be safe to take during and have no harmful effects on the baby. Try Vitamin B6 25 mg, take it 3 times per day. Unisom sleep tablet 25 mg (active ingredient doxylamine), take one per day before bed. These won't help if just taken as needed. They should be taken daily be most effective. Antiemetic drugs--If vitamin B6 and doxylamine do not work, antiemetic drugs may be prescribed. These drugs prevent vomiting. Many antiemetic drugs have been shown to be safe to use during . Others have conflicting or limited safety information. You and your rural health consultant or other members of your health care team can discuss all of these factors to determine the best treatment for your personal situation. What may happen if my nausea and vomiting is severe or I have hyperemesis gravidarum? You may need to stay in the hospital until your symptoms are under control. Lab tests may be done to check how your liver is working. If you are dehydrated from loss of fluids, you may receive fluids and vitamins through an intravenous line. If your vomiting cannot be controlled, you may need additional medication. If you continue to lose weight, sometimes tube feeding is recommended to ensure that you and your baby are getting enough nutrients. If you have further questions, contact your healthcare provider. Copyright July 2015 by the [employer] Information: Do's and Don'ts Even with all the shahida and anticipation can bring, it is not uncommon for a dfadnv-md-do to have some questions and concerns -- not only about changes to expect throughout her , but also concerns regarding the care of her body to ensure the health of her unborn child. Listed below, you will find some additional information that covers how to care for your body while you are . Do: Plan for weight gain Weight gain during varies from woman to woman and depends on body type. Each woman should talk with her care provider about the appropriate amount of weight gain, as well as diet and exercise. During your , normal weight gain of 0-5 pounds in the first 20 weeks is normal. Most women will gain about a pound a week between 20-40 weeks . However, if your BMI is above or below normal, the following recommendation should be followed: Underweight - BMI Less than 18: Total weight gain 28-40 lbs. Normal Weight - BMI 19-25: Total weight gain 25-35 lbs Overweight - BMI 26-30: Total weight gain 15-25 lbs Obese - BMI over 30: Total weight gain 11-20 lbs If you are having trouble trying to figure out a diet that works for you, please let us know and we can schedule a nutrition consultation for you with our research attorney. Do: Maintain a balanced diet According to the FDA, about 300 extra calories are needed daily to maintain a healthy . These calories should come from a balanced diet of protein, fruits, vegetables, and whole grains, with sweets and fats kept to a minimum. A healthy, well-balanced diet during can also help to minimize some symptoms such as nausea and constipation. The bahena to a healthy is making sure you have a good nutrient dense diet. This means that the foods you eat have a low amount of calories and sugars and a high amount of vitamins, minerals and protein. Common examples of nutrient dense foods are colorful fruits and vegetables especially those with dark, rich colors such as leafy green vegetables, berries and carrots. Whole grains, nuts and seeds are also considered nutrient dense. During your , You and your baby need about 60-100 grams of protein every day. Protein rich foods include meat, fish, eggs, almonds cottage cheese, Salvadorean yogurt, low fat cheese and low fat milk. Most women notice that if they eat 60-100 grams of protein every day and eat 7-12 cups of veggies and fruit every day that they don't crave sweet, simple carbohydrates such as bread, bagels, cookies, chips and sugary foods. Simple carbohydrates need to be eaten in moderation throughout as excess carbohydrate intake can cause excess weight gain which can increase your risk for gestational diabetes, gestational hypertension and excessive growth of the baby Fluid intake is also an important part of healthy nutrition. Women can take in enough fluids by drinking 6 to 8 glasses of water each day, in addition to the fluids in juices and soups. An expectant mother should talk with her health care provider or supervisor cook house about restricting her intake of caffeine and artificial sweeteners. All alcohol should be avoided in . Do: Exercise during : Regular exercise during , with the approval of your physician or supervisor cook house, can often help to minimize the daily physical discomforts and help with the recovery after the baby is born. There is evidence that physical activity may be especially beneficial for women with gestational diabetes. Women who exercised and were physically fit before can safely continue exercising throughout the . Women who were inactive before or who have medical or complications should consult with their physician or supervisor cook house before beginning any exercise during . All women should be evaluated by their physician or supervisor cook house before beginning or continuing an exercise program while . Exercise for women may not be safe if they have any of the following conditions: labor in current or past pregnancies Vaginal bleeding Cervical problems Leaking of amniotic fluid Shortness of breath Dizziness and/or fainting Decreased activity or other complications Increased heart rate (tachycardia) Certain health problems, such as high blood pressure or heart disease Types of exercise to avoid during : Horseback riding Water skiing Scuba diving High altitude skiing Contact sports Any exercise that can cause a serious fall Exercising on your back after the first trimester (because of reduced blood flow to the uterus) Vigorous exercise in hot, humid weather, as women are less efficient at exchanging heat Exercise involving the Valsalva maneuver (holding one's breath during exertion), which can increase intra-abdominal pressure on the uterus Don't: Expose yourself to unnecessary risks if you work during Many women work during without any complications. Being able to work safely, in some cases, until the day of delivery depends on the type of work performed and the ujwkoh-al-ba's medical condition. Taking proper precautions to avoid these risks on the job can help keep you and your baby healthy throughout the . The [employer] recommends the following for working women: Take a break every few hours Take a longer meal break every four hours Drink plenty of fluids while on the job Vary work positions continuously, from sitting to standing and walking Minimize heavy lifting and bending Proper lifting techniques during Weight gain during adds strain to the back. Proper lifting can help reduce the strain and prevent injury. When lifting, a woman should keep in mind the following recommendations: Stand with feet shoulder-width apart Tuck in the buttocks Bend at the knees Lift with the arms and legs, not the back Limit the amount and weight of the items lifted Computer use in Today, many occupations involve the use of a computer. Computers have also been associated with many complaints, such as neck, wrist, hand, shoulder, and back pain from prolonged sitting in the same position and eyestrain. To alleviate these symptoms, the following may help: Take frequent work breaks Use detachable keyboards and adjustable chairs and tables Use non-reflective glass on the screen, adjust the screen lighting and contrast, and install indirect lighting Do: Discuss sex during with your health care provider In most cases, sex during is safe. In fact, with your health care provider's approval, sexual relations can continue until delivery. However, fluctuating hormone levels and certain symptoms such as nausea and tiredness can temporarily reduce a woman's libido (sex drive). In addition, visible changes in the woman's body may affect sexual desire. Always consult your healthcare provider concerning any questions you may have about sex during . Sexual intercourse may have to be avoided if the following symptoms occur: Vaginal bleeding Pain Leaking of amniotic fluid (the fluid surrounding your baby in the womb) Contractions Do: Discuss the best sleeping positions with your health care provider As the fetus grows within the uterus, lying on your back is not recommended due to pressure on the inferior vena cava, a major vein that returns blood from the lower body to the heart. In addition, the increased pressure on the back and intestines can cause discomfort. The best sleeping position for a woman is on her side, because it allows for maximum blood flow to the fetus and improves kidney function in the mother. Improved kidney flow helps to reduce any swelling. Placing a pillow between the knees can help a woman sleep more comfortably on her side. How to contact us: During office hours please call the office: [phone] After hours answering service phone number: [phone] Please call if you experience any of the following: LABOR: Contractions that you feel 4-6 times per hour. It may feel like lower abdominal cramping, or low back pain that comes and goes with stomach tightening. If you notice this, lie down on your side and drink 2 bottles of water. Rest and fluids is normally enough to calm things down. If after 1-2 hours the contractions don't get better, then call us. BLEEDING: Blood tinged mucous discharge is not uncommon, especially if you have had an exam in the office recently or sexual intercourse. However if you are bleeding like a period, you should call us WATER BREAKS: You may experience in increase in vaginal secretions near the time of labor, but if you think your water broke, please call us. DECREASED MOVEMENT: Baby movements change in the last trimester. They tend to be not as vigorous, and change to nudges and rolls. But, if you feel like these movement are not normal, please call our office during office hours or the answering service after hours. ===== [facility] Before you bring your baby into the world, a lot of decisions have to be made. One of those decisions is whether or not to use a Certified Nurse Wheel Blocker (CNM). Certified Nurse Midwives are registered nurses who have received a master s degree and advanced training in women s health and midwifery. They passed a national certification examination and are licensed in the [facility]. Certified Nurse Midwives write prescriptions and provide a variety of services, including: care Labor & delivery care Care after Disease prevention Family planning assistance Gynecological exams Health maintenance counseling Menopausal management Preconception care CNMs work to support and educate women through all phases of and delivery, and support both medicated and non-medicated birthing methods. They are especially skilled at using alternative birthing positions, birthing balls, water therapy, and massage. If you desire an epidural, this is still an option if you have a Certified Nurse Wheel Blocker. You will work with your CNM to determine the best delivery options for you. However, if medical intervention is needed, your supervisor cook house will take the steps necessary to ensure a healthy outcome for you and your baby. Certified Nurse Midwives are always regional agronomist with a physician in case intervention is needed, for instance a Section, vacuum or forceps assisted . Our physician would perform those procedures and the CNM remains present with you for support. The laboring woman receives the best possible care with this team based approach. The CNM section rate at [facility] is only 8-9%, which means most mothers have a normal vaginal . [facility] offers the largest midwifery team in the region. This team is available any time, day or night for your delivery. The supervisor cook house that is regional agronomist the day you labor will be the one who attends the . Throughout your you have the option to meet the various midwives or simply go to the office that is most convenient for you. Not all midwives see clients in every office. Ashlyn Aguilar, DESKTOP PUBLISHING ASSOCIATE-CNM Pau Almaraz, [facility]-CN* Velma Courtney, DESKTOP PUBLISHING ASSOCIATE-CN Carmela Red, DESKTOP PUBLISHING ASSOCIATE-CN Emilia Sherman [facility]-CN Shirley Rabago, [facility]-CN * Amanda Zamudio, [facility]-CN Lillian Du, [facility] Vicenta Wright [facility] Abigail Cordoba, [facility]-CN * Indira Rubio, DESKTOP PUBLISHING ASSOCIATE-CN * *Office-based only midwives, do not attend births Currently, 21/03 midwifery coverage while in labor is only available at [facility]. Do you want more information about midwives? Discover more information for you and your family at the [employer] ([employer]) web site at [email or web address]. Check out the video about Midwives and the Care They Provide at [email or web address] documented in this encounter [facility] 10-01-2024 Note HNO ID: [id number] Author: HAYES YANES APRN.CNP Service: ? Author Type: Nurse Practitioner Type: Progress Notes Filed: 10/01/2024 15:08 Note Text: This note was created using MagTagriter. Subjective Maribel Michaels is a 34 year old female. Patient here for well adult exam. Adhesive capsulitis of shoulder: injections and therapy. Rotator cuff pathology. Uses ativan PRN on her worst days. Mood: Having worsening intrusive thoughts, mainly regarding her and daughter, worries about them and that something could happen to them. Seemed to start worsening when her dad got sick last year. Previously had sexual side effects on Celexa and zoloft has worked for her, would like to stay on this but possibly increase the dose. Went off OCP's about 4-5 months ago, trying to get . Still vaping nicotine minimally, trying to cut back. Chronic sinus issues and deviated septum, was supposed to have sinus surgery about 4 years ago. Gets sinus infections about every 6-8 weeks. Does not take antihistamine/nasal steroid consistently as recommended by ENT. Intermittent right buttock pain that radiates to right hip. Usually sleeps on left side. If she lies flat on back for more than 10 minutes, it causes pain. Just got a new mattress. Sometimes issues with prolonged sitting or standing longer than 10 minutes. No leg pain/weakness in leg The history is provided by the patient. Review of Systems Constitutional: Negative for fatigue. HENT: Positive for congestion and sinus pressure. Eyes: Negative for visual disturbance. Respiratory: Negative for shortness of breath. Cardiovascular: Negative for chest pain. Gastrointestinal: Negative for abdominal pain, constipation and diarrhea. Genitourinary: Negative for difficulty urinating. Musculoskeletal: Positive for back pain. Skin: Negative for rash. Neurological: Negative for dizziness and headaches. Psychiatric/Behavioral: Negative for dysphoric mood and sleep disturbance. The patient is nervous/anxious. PAST MEDICAL HISTORY Diagnosis Date Inguinal lymphadenopathy 01/02/2013 Left shoulder pain Migraine with aura Migraine with aura and without status migrainosus, not intractable 06/18/2018 NEGATIVE MEDICAL HISTORY PAST SURGICAL HISTORY Procedure Laterality Date LAPAROSCOPIC APPENDECTOMY 01/2018 TYMPANOSTOMY LOCAL/TOPICAL ANESTHESIA 3 years of age ALLERGIES Patient has no known allergies. MEDICATIONS LORazepam (ATIVAN) 0.5 mg Take 0.5 mg by mouth three times a day as needed. ibuprofen (MOTRIN) 600 mg tablet TAKE 1 TABLET BY MOUTH EVERY 6 HOURS NEEDED FOR MILD PAIN (1-3) OR MODERATE PAIN (4-6) FOR UP TO 7 DAYS. sertraline (ZOLOFT) 50 mg tablet Take 1.5 tablets by mouth once daily. FAMILY HISTORY Problem Relation Age of Onset other (bladder cancer) Father Diabetes Father COPD Father Colon Cancer Maternal Grandmother Diabetes Maternal Grandfather Heart Maternal Grandfather other (myocardial infarction) Maternal Grandfather 3 FL's Diabetes Paternal Grandfather other (sids) Paternal Grandfather 1/2 sibling Social History Tobacco Use Smoking status: Former Current packs/day: 0.50 Types: Cigarettes Smokeless tobacco: Current Tobacco comments: parents smoke vaping Vaping Use Vaping status: Never Used Substance Use Topics Alcohol use: No Comment: very occ Drug use: Never Objective BP 110/75 Pulse 83 Ht 154.9 cm (5' 0.98) Wt 74 kg (163 lb 2.3 oz) LMP 09/14/2024 (Approximate) BMI 30.84 kg/m? Physical Exam Vitals and nursing note reviewed. Constitutional: Appearance: She is well-developed. She is not ill-appearing. HENT: Head: Normocephalic. Right Ear: Tympanic membrane and ear canal normal. Left Ear: Tympanic membrane and ear canal normal. Mouth/Throat: Mouth: Mucous membranes are moist. Eyes: Extraocular Movements: Extraocular movements intact. Conjunctiva/sclera: Conjunctivae normal. Pupils: Pupils are equal, round, and reactive to light. Neck: Thyroid: No thyroid mass or thyromegaly. Cardiovascular: Rate and Rhythm: Normal rate and regular rhythm. Pulses: Normal pulses. Heart sounds: Normal heart sounds. Pulmonary: Effort: Pulmonary effort is normal. Breath sounds: Normal breath sounds and air entry. Abdominal: General: Abdomen is flat. Bowel sounds are normal. Palpations: Abdomen is soft. Musculoskeletal: General: Normal range of motion. Cervical back: Normal range of motion. Right lower leg: No edema. Left lower leg: No edema. Lymphadenopathy: Cervical: No cervical adenopathy. Skin: General: Skin is warm and dry. Capillary Refill: Capillary refill takes less than 2 seconds. Neurological: Mental Status: She is alert and oriented to person, place, and time. Cranial Nerves: No cranial nerve deficit. Gait: Gait normal. Psychiatric: Mood and Affect: Mood normal. Thought Content: Thought content normal. Assessment and (more content not included)... [facility] 10-01-2024 History of Present illness Narrative This note was created using MagTagriter. Subjective Maribel Michaels is a 34 year old female. Patient here for well adult exam. Adhesive capsulitis of shoulder: injections and therapy. Rotator cuff pathology. Uses ativan PRN on her worst days. Mood: Having worsening intrusive thoughts, mainly regarding her and daughter, worries about them and that something could happen to them. Seemed to start worsening when her dad got sick last year. Previously had sexual side effects on Celexa and zoloft has worked for her, would like to stay on this but possibly increase the dose. Went off OCP's about 4-5 months ago, trying to get . Still vaping nicotine minimally, trying to cut back. Chronic sinus issues and deviated septum, was supposed to have sinus surgery about 4 years ago. Gets sinus infections about every 6-8 weeks. Does not take antihistamine/nasal steroid consistently as recommended by ENT. Intermittent right buttock pain that radiates to right hip. Usually sleeps on left side. If she lies flat on back for more than 10 minutes, it causes pain. Just got a new mattress. Sometimes issues with prolonged sitting or standing longer than 10 minutes. No leg pain/weakness in leg The history is provided by the patient. Review of Systems Constitutional: Negative for fatigue. HENT: Positive for congestion and sinus pressure. Eyes: Negative for visual disturbance. Respiratory: Negative for shortness of breath. Cardiovascular: Negative for chest pain. Gastrointestinal: Negative for abdominal pain, constipation and diarrhea. Genitourinary: Negative for difficulty urinating. Musculoskeletal: Positive for back pain. Skin: Negative for rash. Neurological: Negative for dizziness and headaches. Psychiatric/Behavioral: Negative for dysphoric mood and sleep disturbance. The patient is nervous/anxious. PAST MEDICAL HISTORY Diagnosis Date Inguinal lymphadenopathy 01/02/2013 Left shoulder pain Migraine with aura Migraine with aura and without status migrainosus, not intractable 06/18/2018 NEGATIVE MEDICAL HISTORY PAST SURGICAL HISTORY Procedure Laterality Date LAPAROSCOPIC APPENDECTOMY 01/2018 TYMPANOSTOMY LOCAL/TOPICAL ANESTHESIA 3 years of age ALLERGIES Patient has no known allergies. MEDICATIONS LORazepam (ATIVAN) 0.5 mg Take 0.5 mg by mouth three times a day as needed. ibuprofen (MOTRIN) 600 mg tablet TAKE 1 TABLET BY MOUTH EVERY 6 HOURS NEEDED FOR MILD PAIN (1-3) OR MODERATE PAIN (4-6) FOR UP TO 7 DAYS. sertraline (ZOLOFT) 50 mg tablet Take 1.5 tablets by mouth once daily. FAMILY HISTORY Problem Relation Age of Onset other (bladder cancer) Father Diabetes Father COPD Father Colon Cancer Maternal Grandmother Diabetes Maternal Grandfather Heart Maternal Grandfather other (myocardial infarction) Maternal Grandfather 3 FL's Diabetes Paternal Grandfather other (sids) Paternal Grandfather 1/2 sibling Social History Tobacco Use Smoking status: Former Current packs/day: 0.50 Types: Cigarettes Smokeless tobacco: Current Tobacco comments: parents smoke vaping Vaping Use Vaping status: Never Used Substance Use Topics Alcohol use: No Comment: very occ Drug use: Never Objective BP 110/75 Pulse 83 Ht 154.9 cm (5' 0.98) Wt 74 kg (163 lb 2.3 oz) LMP 09/14/2024 (Approximate) BMI 30.84 kg/m Physical Exam Vitals and nursing note reviewed. Constitutional: Appearance: She is well-developed. She is not ill-appearing. HENT: Head: Normocephalic. Right Ear: Tympanic membrane and ear canal normal. Left Ear: Tympanic membrane and ear canal normal. Mouth/Throat: Mouth: Mucous membranes are moist. Eyes: Extraocular Movements: Extraocular movements intact. Conjunctiva/sclera: Conjunctivae normal. Pupils: Pupils are equal, round, and reactive to light. Neck: Thyroid: No thyroid mass or thyromegaly. Cardiovascular: Rate and Rhythm: Normal rate and regular rhythm. Pulses: Normal pulses. Heart sounds: Normal heart sounds. Pulmonary: Effort: Pulmonary effort is normal. Breath sounds: Normal breath sounds and air entry. Abdominal: General: Abdomen is flat. Bowel sounds are normal. Palpations: Abdomen is soft. Musculoskeletal: General: Normal range of motion. Cervical back: Normal range of motion. Right lower leg: No edema. Left lower leg: No edema. Lymphadenopathy: Cervical: No cervical adenopathy. Skin: General: Skin is warm and dry. Capillary Refill: Capillary refill takes less than 2 seconds. Neurological: Mental Status: She is alert and oriented to person, place, and time. Cranial Nerves: No cranial nerve deficit. Gait: Gait normal. Psychiatric: Mood and Affect: Mood normal. Thought Content: Thought content normal. Assessment and Plan 1. Well adult exam F/u in 1 year. 2. Adjustment disorder with mixed anxiety and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 OB Procedures EST [facility] OB Rdaha Mcpherson MD [address] [place] [address] Phone: tel: fax: Radha Mcpherson MD [address] [place] [address] Phone: tel: fax: Referral ID Status Reason Start Date Expiration Date V isits Requested Visits Authorized [id number] Authorized 04/12/2025 08/28/2025 99 99 Reason Comments Reason Comments Satya Carlson Specialty Diagnoses / Procedures Referred By Contac t Referred To Contact [facility] Diagnoses Diet controlled gestational diabetes mellitus (GDM) in third trimester (HCC) Procedures OBSTETRIC ULTRASOUND I US PREG UTERUS AFTER 1ST TRIMEST GESTATION Sharla Arriaga, DEQUAN.METAL FILER [address] [place] [address] Phone: tel: fax: [facility] [place] [address] Referral ID Status Reason Start Date Expiration Date V isits Requested Visits Authorized [id number] Closed Auto-Generate d Referral 03/29/2025 03/29/2026 5 1 Reason Onset Date Comments Care 05/01/2025 Care Teams (unrecognized sec tion and content) 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 Start Date End Date Thor Mayberry PCP - General Family Medicine 04/14/16 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 Start Date End Date Thor Mayberry MD [address] [place] [address] [id number] PCP - General Family Medicine 10/23/12 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 Start Date End Date Thor Mayberry MD [address] [place] [address] [id number] PCP - General Family Medicine 10/23/12 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 Start Date End Date Thor Mayberry MD [address] [place] [address] [id number] PCP - General Family Medicine 10/23/12 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 Start Date End Date Thor Mayberry MD [address] [place] [address] [id number] PCP - General Family Medicine 10/23/12 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 Start Date End Date Thor Mayberry MD [address] [place] [address] [id number] PCP - General Family Medicine 10/23/12 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 Start Date End Date Thor Mayberry MD [address] [place] [address] [id number] PCP - General Family Medicine 10/23/12 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 Start Date End Date Thor Mayberry MD [address] [place] [place] [address] PCP - General Family Medicine 10/23/12 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 Start Date End Date Thor Mayberry MD [address] [facility] [place] [address] PCP - General Family Medicine 10/23/12 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 Start Date End Date Thor Mayberry MD [address] [place] [place] [address] PCP - General Family Medicine 10/23/12 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 Start Date End Date Thor Mayberry MD [address] [facility] [place] [address] PCP - General Family Medicine 10/23/12 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 Start Date End Date Thor Mayberry MD [address] [place] [place] [address] PCP - General Family Medicine 10/23/12 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 Start Date End Date Thor Mayberry MD [address] [place] [place] [address] PCP - General Family Medicine 10/23/12 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 Start Date End Date Thor Mayberry MD [address] [facility] [place] [address] PCP - General Family Medicine 10/23/12 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 Start Date End Date Thor Mayberry MD [address] [facility] [place] [address] PCP - General Family Medicine 10/23/12 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 Start Date End Date Thor Mayberry MD [address] [facility] [place] [address] PCP - General Family Medicine 10/23/12 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 Start Date End Date Thor Mayberry MD [address] [facility] [place] [address] PCP - General Family Medicine 10/23/12 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 Start Date End Date Thor Mayberry MD [address] [facility] [place] [address] PCP - General Family Medicine 10/23/12 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 Start Date End Date Thor Mayberry MD [address] [place] [place] [address] PCP - General Family Medicine 10/23/12 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 Start Date End Date Thor Mayberry MD [address] [place] [place] [address] PCP - General Family Medicine 10/23/12 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 Start Date End Date Thor Mayberry MD [address] [place] [place] [address] PCP - General Family Medicine 10/23/12 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 Start Date End Date Thor Mayberry MD [address] [place] [address] PCP - General Family Medicine 10/23/12 Team Status: Active Member Role Status Dates Dr. Annie Byrne MD Family Provider Active Dr. Percy Mayberry MD Primary Care Provider Active Team Status: Inactive Member Role Status Dates Dr. Chito Almeida MD Emergency Provider Active Dr. 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 Start Date End Date Thor Mayberry MD [address] [place], [place] 7[address]461 PCP - General Family Medicine 10/23/12 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 Start Date End Date Thor Mayberry MD [address] [place], [place] 169481 PCP - General Family Medicine 10/23/12 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 Start Date End Date Thor Mayberry MD [address] [place], [place] [id number] PCP - General Family Medicine 10/23/12 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 Start Date End Date Thor Mayberry [address] [place] [address] [id number] PCP - General 04/14/16 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 Start Date End Date Thor Mayberry MD [address] [place], [place] [id number] PCP - General Family Medicine 10/23/12 Hayes Yanes APRN.CNP [address] [place], [place] [id number] Tin Dipper Internal Medicine 08/05/24 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 Start Date End Date Thor Mayberry [address] [place], [place] [address]151 PCP - General 04/14/16 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 Start Date End Date Thor Mayberry [address] [place], [place] [id number] PCP - General 04/14/16 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 Start Date End Date Thor Mayberry MD [address] [facility], [place] 6[address] PCP - General Family Medicine 10/23/12 Hayes Yanes, DESKTOP PUBLISHING ASSOCIATE.METAL FILER [address] [place] [id number] Tin Dipper Internal Medicine 08/05/24 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 Start Date End Date Thor Mayberry MD [address] [place] [place] [address] PCP - General Family Medicine 10/23/12 Hayes Yanes, DESKTOP PUBLISHING ASSOCIATE.METAL FILER [address] [place] [address] Tin Dipper Internal Medicine 08/05/24 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 Start Date End Date Thor Mayberry [address] [place] [address] PCP - General 04/14/16 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 Start Date End Date hTor Mayberry MD [address] [place] [address] PCP - General Family Medicine 10/23/12 Hayes Yanes, DESKTOP PUBLISHING ASSOCIATE.METAL FILER [address] [place] [address] Tin Dipper Internal Medicine 08/05/24 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 Start Date End Date Thor Mayberry MD [address] [place] [address] PCP - General Family Medicine 10/23/12 Hayes Yanes, DESKTOP PUBLISHING ASSOCIATE.METAL FILER [address] [place] [address] Tin Dipper Internal Medicine 08/05/24 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 Start Date End Date Thor Mayberry MD [address] [place] [address] PCP - General Family Medicine 10/23/12 Hayes Yanes, DESKTOP PUBLISHING ASSOCIATE.METAL FILER [address] [place] [place] [address] Tin Dipper Internal Medicine 08/05/24 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 Start Date End Date Thor Mayberry MD [address] [place], [place] 319151 PCP - General Family Medicine 10/23/12 Hayes Yanes, DESKTOP PUBLISHING ASSOCIATE.METAL FILER [address] [place] [address] Tin Dipper Internal Medicine 08/05/24 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 Start Date End Date Thor Mayberry MD [address] [place], [place] 386741 PCP - General Family Medicine 10/23/12 Hayes Yanes, DESKTOP PUBLISHING ASSOCIATE.METAL FILER [address] [place] [address] Tin Dipper Internal Medicine 08/05/24 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 Start Date End Date Thor Mayberry MD [address] [place] [address] PCP - General Family Medicine 10/23/12 Hayes Yanes, DESKTOP PUBLISHING ASSOCIATE.METAL FILER [address] [place] [address] Tin Dipper Internal Medicine 08/05/24 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 Start Date End Date Thor Mayberry MD [address] [place], [place] 0[address]481 PCP - General Family Medicine 10/23/12 Hayes Yanes, DESKTOP PUBLISHING ASSOCIATE.METAL FILER [address] [place], [place] [address] Tin Dipper Internal Medicine 08/05/24 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 Start Date End Date Thor Mayberry MD [address] [place], [place] 902971 PCP - General Family Medicine 10/23/12 Hayes Yanes, DESKTOP PUBLISHING ASSOCIATE.METAL FILER [address] [place], [place] [address] Tin Dipper Internal Medicine 08/05/24 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 Start Date End Date Thor Mayberry MD [address] [place], [place] 726201 PCP - General Family Medicine 10/23/12 Hayes Yanes, DESKTOP PUBLISHING ASSOCIATE.METAL FILER [address] [place], [place] [address] Tin Dipper Internal Medicine 08/05/24 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 Start Date End Date Thor Mayberry MD [address] [place], [place] [address] PCP - General Family Medicine 10/23/12 Hayes Yanes, DESKTOP PUBLISHING ASSOCIATE.METAL FILER [address] [place] [address] Tin Dipper Internal Medicine 08/05/24 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 Start Date End Date Thor Mayberry MD [address] [place], [place] 497981 PCP - General Family Medicine 10/23/12 Hayes Yanes, DESKTOP PUBLISHING ASSOCIATE.METAL FILER [address] [place], [place] [address]87[address] Tin Dipper Internal Medicine 08/05/24 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 Start Date End Date Thor Mayberry MD [address] [place], [place] [address]101 PCP - General Family Medicine 10/23/12 Hayes Yanes, DESKTOP PUBLISHING ASSOCIATE.METAL FILER [address] [place], [place] [address] Tin Dipper Internal Medicine 08/05/24 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 Start Date End Date Thor Mayberry MD [address] [place], [place] 7[address]81 PCP - General Family Medicine 10/23/12 Hayes Yanes, DESKTOP PUBLISHING ASSOCIATE.METAL FILER [address] [place], [place] [address] Tin Dipper Internal Medicine 08/05/24 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 Start Date End Date Thor Mayberry MD [address] [place], [place] [address]051 PCP - General Family Medicine 10/23/12 Hayes Yanes, DESKTOP PUBLISHING ASSOCIATE.METAL FILER [address] [place] [id number] Tin Dipper Internal Medicine 08/05/24 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 Start Date End Date Thor Mayberry MD [address] [place], [place] 777961 PCP - General Family Medicine 10/23/12 Hayes Yanes, DEQUAN.METAL FILER [address] [place], [place] [address] Tin Dipper Internal Medicine 08/05/24 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 Start Date End Date Thor Mayberry MD [address] [place], [place] [address]641 PCP - General Family Medicine 10/23/12 Hayes Yanes, DEQUAN.METAL FILER [address] [place], [place] [address] Tin Dipper Internal Medicine 08/05/24 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 Start Date End Date Thor Mayberry MD [address] [place], [place] 622311 PCP - General Family Medicine 10/23/12 Hayes Yanes, DESKTOP PUBLISHING ASSOCIATE.METAL FILER [address] [place], [place] [address] Tin Dipper Internal Medicine 08/05/24 Source Comments (unrecognize d section and content) In the event this informatio n is protected by the Federal Confidentiality of Alcohol and Drug Abuse Patient Records regulations: The Federal rules restrict any use of the information to criminally investigate or prosecute any alcohol or drug abuse patient.[facility] HospitalIn the event this information is protected by the Federal Confidentiality of Alcohol and Drug Abuse Patient Records regulations: The Federal rules restrict any use of the information to criminally investigate or prosecute any alcohol or drug abuse patient.[facility] HospitalIn the event this information is protected by the Federal Confidentiality of Alcohol and Drug Abuse Patient Records regulations: The Federal rules restrict any use of the information to criminally investigate or prosecute any alcohol or drug abuse patient.[facility] HospitalIn the event this information is protected by the Federal Confidentiality of Alcohol and Drug Abuse Patient Records regulations: The Federal rules restrict any use of the information to criminally investigate or prosecute any alcohol or drug abuse patient.[facility] HospitalIn the event this information is protected by the Federal Confidentiality of Alcohol and Drug Abuse Patient Records regulations: The Federal rules restrict any use of the information to criminally investigate or prosecute any alcohol or drug abuse patient.[facility] HospitalIn the event this information is protected by the Federal Confidentiality of Alcohol and Drug Abuse Patient Records regulations: The Federal rules restrict any use of the information to criminally investigate or prosecute any alcohol or drug abuse patient.[facility] HospitalIn the event this information is protected by the Federal Confidentiality of Alcohol and Drug Abuse Patient Records regulations: The Federal rules restrict any use of the information to criminally investigate or prosecute any alcohol or drug abuse patient.[facility] HospitalIn the event this information is protected by the Federal Confidentiality of Alcohol and Drug Abuse Patient Records regulations: The Federal rules restrict any use of the information to criminally investigate or prosecute any alcohol or drug abuse patient.[facility] HospitalIn the event this information is protected by the Federal Confidentiality of Alcohol and Drug Abuse Patient Records regulations: The Federal rules restrict any use of the information to criminally investigate or prosecute any alcohol or drug abuse patient.[facility] HospitalIn the event this information is protected by the Federal Confidentiality of Alcohol and Drug Abuse Patient Records regulations: The Federal rules restrict any use of the information to criminally investigate or prosecute any alcohol or drug abuse patient.[facility] HospitalIn the event this information is protected by the Federal Confidentiality of Alcohol and Drug Abuse Patient Records regulations: The Federal rules restrict any use of the information to criminally investigate or prosecute any alcohol or drug abuse patient.[facility] HospitalIn the event this information is protected by the Federal Confidentiality of Alcohol and Drug Abuse Patient Records regulations: The Federal rules restrict any use of the information to criminally investigate or prosecute any alcohol or drug abuse patient.[facility] HospitalIn the event this information is protected by the Federal Confidentiality of Alcohol and Drug Abuse Patient Records regulations: The Federal rules restrict any use of the information to criminally investigate or prosecute any alcohol or drug abuse patient.[facility] HospitalIn the event this information is protected by the Federal Confidentiality of Alcohol and Drug Abuse Patient Records regulations: The Federal rules restrict any use of the information to criminally investigate or prosecute any alcohol or drug abuse patient.[facility] HospitalIn the event this information is protected by the Federal Confidentiality of Alcohol and Drug Abuse Patient Records regulations: The Federal rules restrict any use of the information to criminally investigate or prosecute any alcohol or drug abuse patient.[facility] HospitalIn the event this information is protected by the Federal Confidentiality of Alcohol and Drug Abuse Patient Records regulations: The Federal rules restrict any use of the information to criminally investigate or prosecute any alcohol or drug abuse patient.[facility] HospitalIn the event this information is protected by the Federal Confidentiality of Alcohol and Drug Abuse Patient Records regulations: The Federal rules restrict any use of the information to criminally investigate or prosecute any alcohol or drug abuse patient.[facility] HospitalIn the event this information is protected by the Federal Confidentiality of Alcohol and Drug Abuse Patient Records regulations: The Federal rules restrict any use of the information to criminally investigate or prosecute any alcohol or drug abuse patient.[facility] HospitalIn the event this information is protected by the Federal Confidentiality of Alcohol and Drug Abuse Patient Records regulations: The Federal rules restrict any use of the information to criminally investigate or prosecute any alcohol or drug abuse patient.[facility] HospitalIn the event this information is protected by the Federal Confidentiality of Alcohol and Drug Abuse Patient Records regulations: The Federal rules restrict any use of the information to criminally investigate or prosecute any alcohol or drug abuse patient.[facility] HospitalIn the event this information is protected by the Federal Confidentiality of Alcohol and Drug Abuse Patient Records regulations: The Federal rules restrict any use of the information to criminally investigate or prosecute any alcohol or drug abuse patient.[facility] HospitalIn the event this information is protected by the Federal Confidentiality of Alcohol and Drug Abuse Patient Records regulations: The Federal rules restrict any use of the information to criminally investigate or prosecute any alcohol or drug abuse patient.[facility] HospitalIn the event this information is protected by the Federal Confidentiality of Alcohol and Drug Abuse Patient Records regulations: The Federal rules restrict any use of the information to criminally investigate or prosecute any alcohol or drug abuse patient.[facility] HospitalIn the event this information is protected by the Federal Confidentiality of Alcohol and Drug Abuse Patient Records regulations: The Federal rules restrict any use of the information to criminally investigate or prosecute any alcohol or drug abuse patient.[facility] HospitalIn the event this information is protected by the Federal Confidentiality of Alcohol and Drug Abuse Patient Records regulations: The Federal rules restrict any use of the information to criminally investigate or prosecute any alcohol or drug abuse patient.[facility] HospitalIn the event this information is protected by the Federal Confidentiality of Alcohol and Drug Abuse Patient Records regulations: The Federal rules restrict any use of the information to criminally investigate or prosecute any alcohol or drug abuse patient.[facility] HospitalIn the event this information is protected by the Federal Confidentiality of Alcohol and Drug Abuse Patient Records regulations: The Federal rules restrict any use of the information to criminally investigate or prosecute any alcohol or drug abuse patient.[facility] HospitalIn the event this information is protected by the Federal Confidentiality of Alcohol and Drug Abuse Patient Records regulations: The Federal rules restrict any use of the information to criminally investigate or prosecute any alcohol or drug abuse patient.[facility] HospitalIn the event this information is protected by the Federal Confidentiality of Alcohol and Drug Abuse Patient Records regulations: The Federal rules restrict any use of the information to criminally investigate or prosecute any alcohol or drug abuse patient.[facility] HospitalIn the event this information is protected by the Federal Confidentiality of Alcohol and Drug Abuse Patient Records regulations: The Federal rules restrict any use of the information to criminally investigate or prosecute any alcohol or drug abuse patient.[facility] HospitalIn the event this information is protected by the Federal Confidentiality of Alcohol and Drug Abuse Patient Records regulations: The Federal rules restrict any use of the information to criminally investigate or prosecute any alcohol or drug abuse patient.[facility] HospitalIn the event this information is protected by the Federal Confidentiality of Alcohol and Drug Abuse Patient Records regulations: The Federal rules restrict any use of the information to criminally investigate or prosecute any alcohol or drug abuse patient.[facility] HospitalIn the event this information is protected by the Federal Confidentiality of Alcohol and Drug Abuse Patient Records regulations: The Federal rules restrict any use of the information to criminally investigate or prosecute any alcohol or drug abuse patient.[facility] HospitalIn the event this information is protected by the Federal Confidentiality of Alcohol and Drug Abuse Patient Records regulations: The Federal rules restrict any use of the information to criminally investigate or prosecute any alcohol or drug abuse patient.[facility] HospitalIn the event this information is protected by the Federal Confidentiality of Alcohol and Drug Abuse Patient Records regulations: The Federal rules restrict any use of the information to criminally investigate or prosecute any alcohol or drug abuse patient.[facility] HospitalIn the event this information is protected by the Federal Confidentiality of Alcohol and Drug Abuse Patient Records regulations: The Federal rules restrict any use of the information to criminally investigate or prosecute any alcohol or drug abuse patient.[facility] HospitalIn the event this information is protected by the Federal Confidentiality of Alcohol and Drug Abuse Patient Records regulations: The Federal rules restrict any use of the information to criminally investigate or prosecute any alcohol or drug abuse patient.[facility] HospitalIn the event this information is protected by the Federal Confidentiality of Alcohol and Drug Abuse Patient Records regulations: The Federal rules restrict any use of the information to criminally investigate or prosecute any alcohol or drug abuse patient.[facility] HospitalIn the event this information is protected by the Federal Confidentiality of Alcohol and Drug Abuse Patient Records regulations: The Federal rules restrict any use of the information to criminally investigate or prosecute any alcohol or drug abuse patient.[facility] HospitalIn the event this information is protected by the Federal Confidentiality of Alcohol and Drug Abuse Patient Records regulations: The Federal rules restrict any use of the information to criminally investigate or prosecute any alcohol or drug abuse patient.[facility] HospitalIn the event this information is protected by the Federal Confidentiality of Alcohol and Drug Abuse Patient Records regulations: The Federal rules restrict any use of the information to criminally investigate or prosecute any alcohol or drug abuse patient.[facility] HospitalIn the event this information is protected by the Federal Confidentiality of Alcohol and Drug Abuse Patient Records regulations: The Federal rules restrict any use of the information to criminally investigate or prosecute any alcohol or drug abuse patient.[facility] HospitalIn the event this information is protected by the Federal Confidentiality of Alcohol and Drug Abuse Patient Records regulations: The Federal rules restrict any use of the information to criminally investigate or prosecute any alcohol or drug abuse patient.[facility] HospitalIn the event this information is protected by the Federal Confidentiality of Alcohol and Drug Abuse Patient Records regulations: The Federal rules restrict any use of the information to criminally investigate or prosecute any alcohol or drug abuse patient.[facility] HospitalIn the event this information is protected by the Federal Confidentiality of Alcohol and Drug Abuse Patient Records regulations: The Federal rules restrict any use of the information to criminally investigate or prosecute any alcohol or drug abuse patient.[facility] HospitalIn the event this information is protected by the Federal Confidentiality of Alcohol and Drug Abuse Patient Records regulations: The Federal rules restrict any use of the information to criminally investigate or prosecute any alcohol or drug abuse patient.[facility] HospitalIn the event this information is protected by the Federal Confidentiality of Alcohol and Drug Abuse Patient Records regulations: The Federal rules restrict any use of the information to criminally investigate or prosecute any alcohol or drug abuse patient.[facility] HospitalIn the event this information is protected by the Federal Confidentiality of Alcohol and Drug Abuse Patient Records regulations: The Federal rules restrict any use of the information to criminally investigate or prosecute any alcohol or drug abuse patient.[facility] HospitalIn the event this information is protected by the Federal Confidentiality of Alcohol and Drug Abuse Patient Records regulations: The Federal rules restrict any use of the information to criminally investigate or prosecute any alcohol or drug abuse patient.[facility] HospitalIn the event this information is protected by the Federal Confidentiality of Alcohol and Drug Abuse Patient Records regulations: The Federal rules restrict any use of the information to criminally investigate or prosecute any alcohol or drug abuse patient.[facility] HospitalIn the event this information is protected by the Federal Confidentiality of Alcohol and Drug Abuse Patient Records regulations: The Federal rules restrict any use of the information to criminally investigate or prosecute any alcohol or drug abuse patient.[facility] HospitalIn the event this information is protected by the Federal Confidentiality of Alcohol and Drug Abuse Patient Records regulations: The Federal rules restrict any use of the information to criminally investigate or prosecute any alcohol or drug abuse patient.[facility] HospitalIn the event this information is protected by the Federal Confidentiality of Alcohol and Drug Abuse Patient Records regulations: The Federal rules restrict any use of the information to criminally investigate or prosecute any alcohol or drug abuse patient.[facility] HospitalIn the event this information is protected by the Federal Confidentiality of Alcohol and Drug Abuse Patient Records regulations: The Federal rules restrict any use of the information to criminally investigate or prosecute any alcohol or drug abuse patient.[facility] HospitalIn the event this information is protected by the Federal Confidentiality of Alcohol and Drug Abuse Patient Records regulations: The Federal rules restrict any use of the information to criminally investigate or prosecute any alcohol or drug abuse patient.[facility] Goals (unrecognized section and content) Goals may be documented in a n alternate section FOR RECORDS PERTAINING TO PATIENTS WHO ARE OR HAVE BEEN ENROLLED IN A CHEMICAL DEPENDENCY/SUBSTANCEABUSE PROGRAM, SOME INFORMATION MAY BE OMITTED. This clinical summary was aggregated from multiple sources. Caution should be exercised in using it in the provision of clinical care. This summary normalizes information from multiple sources, and as a consequence, information in this document may materially change the coding, format and clinical context of patient data. In addition, data may be omitted in some cases. CLINICAL DECISIONS SHOULD BE BASED ON THE PRIMARY CLINICAL RECORDS. [facility]. provides no warranty or guarantee of the accuracy or completeness of information in this document.
[2025-06-14] MEDS: Lactated Ringers 1,000 ML 999 ML IV (05:40)
--- OUTSIDE RECORDS SUMMARY | 2025-06-14 05:46 | XMS RPT_ITS | CCD ---
Author Organization [facility] Care Team Providers Care Letterer Name Role Phone Percy Mayberry Unavailable Unavailable Percy Mayberry Unavailable Unavailable NO REFERRING Unavailable Unavailable Percy Mayberry Unavailable Unavailable PROVIDER, UNKNOWN Unavailable Unavailable Percy Mayebrry Unavailable Unavailable Thor Mayberry Primary Care Provider [phone] Thor Mayberry Primary Care Provider [phone] Thor Mayberry MD Primary Care Provider Thor Mayberry MD Primary Care Provider [phone] Thor Mayberry MD Primary Care Provider THOR [...] Kontak, Thor R Primary Care Provider Joaquín SILK WINDING MACHINE OPERATOR.KATHY, Hayes Unavailable Kontak, Thor R Primary Care Provider [phone] ALEX FARR Attending Unavailable KONTAK, THOR Primary [...] Unavailable JAYLEEN ANN Referring Unavail able JAYLEEN NAN Attending Unavail able THOR MAYBERRY Primary Care Unavailable THOR MAYBERRY Primary Care Unavailable AL LLOYD Attending Unavailable Allergies Allergy Classification Reported Allergen(s) Allergy Type Date of Onset Reaction(s) Facility (7 sources) oxyCODONE Drug Allergy 01-31-2018 Nausea And Vomiting [facility], [place] Medications Current Medications Medication Drug Class(es) Dates [...] Comment on above: Take 1 tablet by [facility] once daily. sodium chloride flush 0.9 [...] Paolo Perez 06-05-2025 CNPN Telephone (OBGYWM) CANDACEMARIBEL ([id number]) 1990 F CHT Date Time Provider Department [...] Status:Closed by ELIECER LAI on 06/06/[address] [facility] 06-04-2025 CNPN Telephone (FPWADS) MARIBEL MICHAELS ([id number]) 1990 F T Date Time Provider Department 06/04/25 THOR MAYBERRY FPWADS During your visit today, we recorded the following information about you: Kellie Watson LPN 06/04/2025 1:13 PM Signed Received visit summary from [facility] obgyn. Placed in provider's inbox for review. 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 Percy Mayberry MD Status:PRE IN [facility] History and Physical Date of Admission: [...] encounter 10/05/2022 ??? Nausea and vomiting during ([facility]) 11/07/2024 November 15, 2024 - Reviewed nausea [...] joint of left shoulder 06/03/2023 ??? Pre-eclampsia ([facility]) ??? Premature ([facility]) 08/27/2013 35 weeks ??? Stiffness of left [...] ??? other (myocardial infarction) Maternal Grandfather 3 AL's ??? Diabetes Paternal Grandfather ??? other (sids) [...] surgical history (more content not included)... Normal [facility] HISTORY PHYSICALon HISTORY PHYSICAL HNO ID: [id number] Author: JAYLEEN ANN MD Service: ? Author [...] Grandfather other (myocardial infarction) Maternal Grandfather 3 AL's Diabetes Paternal Grandfather other (sids) Paternal Grandfather [...] Alcohol use: No Drug use: Never [facility] MARIBEL MICHAELS ([id number]) 1990 F CHT Date Time Provider Department 05/31/25 JUAN J DAILY During your visit today, we recorded the following information about you: Radha Heredia RN 05/31/2025 4:40 PM Signed Received breast pump RX from [employer]. To to sign. GLENN Callejas Jennifer, RN [...] Status:Closed by RADHA HEREDIA on 05/31/25 Normal [facility] ROUTINE, GROUP B ST REPTOCOCCUS BY PCRon 05-30-2025 ROUTINE, GROUP B STREPTOCOCCUS BY PCR Not detected Normal [facility] Comment on above: Performed By: #### G BPCR #### [facility] CLIA [id number] [facility] [place] [address] [place] URINE OB DIP B/Oon Glucose Ql (U) Negative Neg mg/dL [facility] Interpretation and review of laboratory results Normal [facility] Protein.monoclonal (U) [Mass/Vol] trace Neg mg/dL [facility] Examination level ultrasound on 05-01-2025 [facility] Radiology Study observation (narrative) [facility] CNPNon 04-30-2025 CNPN Telephone (OBGYWM) MARIBEL MICHAELS ([id number]) 1990 F CHT Date Time Provider Department 04/30/25 JANINA BUTLER OBGYWJuvencio During your visit today, we recorded the following information about you: Ewelina Burkett, GLENN 04/30/2025 4:13 PM Signed 32w4d Abdominal tightness started around 12pm today, intermittently, and only lasts for 20 seconds, then relaxes. Pressure lower abdomen. Pt states feels like [place]lson contractions. Pt states she is middle [...] Encounter Status:Closed by ELIECER LAI on 04/30/25 [facility] Chris 04-24-2025 KATHYN Telephone (OBGYWM) CANDACEMARIBEL Peña ([id number]) 1990 F CHT Date Time Provider Department [...] Status:Closed by RADHA HEREDIA on 04/24/25 Normal [facility] URINE OB DIP B/Oon Glucose Ql (U) Negative Neg mg/dL [facility] Interpretation and review of laboratory results Normal [facility] Protein.monoclonal (U) [Mass/Vol] trace Neg mg/dL [facility] CBC W Auto Differential pane l (Bld)on 03-28-2025 Basophils (Bld) [#/Vol] 0.03 10*3/uL Normal <0.11 [facility] Comment on above: Order Comment: Speci men Type: BLOOD SPECIMENOrdering Facility: [facility] Address: [address] [place] [address] Performed By: #### 5 7021-8 ####[facility] [id number] [place] [address] [place] Basophils/100 WBC (Bld) 0.3 % Normal [facility] Comment on above: Order Comment: Speci men Type: BLOOD SPECIMENOrdering Facility: [facility] Address: [address] [place] [address] Performed By: #### 5 7021-8 ####[facility] [id number] [place] [address] [place] Differential cell count method Nom (Bld) Auto Normal [facility] Comment on above: Order Comment: Speci men Type: BLOOD SPECIMENOrdering Facility: [facility] Address: [address] [place] [address] Performed By: #### 5 7021-8 ####[facility] [id number] [place] [address] [place] Eosinophils (Bld) [#/Vol] 0.09 10*3/uL Normal <0.46 [facility] Comment on above: Order Comment: Speci men Type: BLOOD SPECIMENOrdering Facility: [facility] Address: [address] [place] [address] Performed By: #### 5 7021-8 ####[facility] DODIEYANELI [id number] [place] [address] [place] Eosinophils/100 WBC (Bld) 0.8 % Normal [facility] Comment on above: Order Comment: Speci men Type: BLOOD SPECIMENOrdering Facility: [facility] Address: [address] [place] [address] Performed By: #### 5 7021-8 ####[facility] [id number] [place] [address] [place] Erythrocyte distribution width (RBC) [Ratio] 12.4 % Normal 11.5-15.0 [facility] Comment on above: Order Comment: Speci men Type: BLOOD SPECIMENOrdering Facility: [facility] Address: [address] [place] [address] Performed By: #### 5 7021-8 ####[facility] [id number] [place] [address] [place] Hematocrit (Bld) [Volume fraction] 33.3 % Low 36.0-46.0 [facility] Comment on above: Order Comment: Speci men Type: BLOOD SPECIMENOrdering Facility: [facility] Address: [address] [place] [address] Performed By: #### 5 7021-8 ####[facility] [id number] [place] [address] [place] Hemoglobin (Bld) [Mass/Vol] 11.9 g/dL Normal 11.5-15.5 [facility] Comment on above: Order Comment: Speci men Type: BLOOD SPECIMENOrdering Facility: [facility] Address: [address] [place] [address] Performed By: #### 5 7021-8 ####[facility] MILLWNCLIA [id number] [place] [address] [place] Immature granulocytes (Bld) [#/Vol] 0.06 10*3/uL Normal <0.10 [facility] Comment on above: Order Comment: Speci men Type: BLOOD SPECIMENOrdering Facility: [facility] Address: [address] [place] [address] Performed By: #### 5 7021-8 ####[facility] [id number] [place] [address] [place] Immature granulocytes/100 WBC (Bld) 0.6 % Normal [facility] Comment on above: Order Comment: Speci men Type: BLOOD SPECIMENOrdering Facility: [facility] Address: [address] [place] [address] Performed By: #### 5 7021-8 ####[facility] [id number] [place] [address] [place] Lymphocytes (Bld) [#/Vol] 1.17 10*3/uL Normal 1.00-4.00 [facility] Comment on above: Order Comment: Speci men Type: BLOOD SPECIMENOrdering Facility: [facility] Address: [address] [place] [address] Performed By: #### 5 7021-8 ####[facility] [id number] [place] [address] [place] Lymphocytes/100 WBC (Bld) 10.8 % Normal [facility] Comment on above: Order Comment: Speci men Type: BLOOD SPECIMENOrdering Facility: [facility] Address: [address] [place] [address] Performed By: #### 5 7021-8 ####[facility] [id number] [place] [address] [place] MCH (RBC) [Entitic mass] 32.2 pg Normal 26.0-34.0 [facility] Comment on above: Order Comment: Speci men Type: BLOOD SPECIMENOrdering Facility: [facility] Address: [address] [place] [address] Performed By: #### 5 7021-8 ####[facility] [id number] [place] [address] [place] MCHC (RBC) [Mass/Vol] 35.7 g/dL Normal 30.5-36.0 [facility] Comment on above: Order Comment: Speci men Type: BLOOD SPECIMENOrdering Facility: [facility] Address: [address] [place], [place] [id number] Performed By: #### 5 7021-8 ####[facility] [id number] [place] [address] [place] MCV (RBC) [Entitic vol] 90.2 fL Normal 80.0-100.0 [facility] Comment on above: Order Comment: Speci men Type: BLOOD SPECIMENOrdering Facility: [facility] Address: [address] [place] [address] Performed By: #### 5 7021-8 ####[facility] [id number] [place] [address] [place] Monocytes (Bld) [#/Vol] 0.45 10*3/uL Normal <0.87 [facility] Comment on above: Order Comment: Speci men Type: BLOOD SPECIMENOrdering Facility: [facility] Address: [address] [place] [address] Performed By: #### 5 7021-8 ####[facility] [id number] [place] [address] [place] Monocytes/100 WBC (Bld) 4.1 % Normal [facility] Comment on above: Order Comment: Speci men Type: BLOOD SPECIMENOrdering Facility: [facility] Address: [address] [place] [address] Performed By: #### 5 7021-8 ####[facility] [id number] [place] [address] [place] Neutrophils (Bld) [#/Vol] 9.08 10*3/uL High 1.45-7.50 [facility] Comment on above: Order Comment: Speci men Type: BLOOD SPECIMENOrdering Facility: [facility] Address: [address] [place] [address] Performed By: #### 5 7021-8 ####[facility] [id number] [place] [address] [place] Neutrophils/100 WBC (Bld) 83.4 % Normal [facility] Comment on above: Order Comment: Speci men Type: BLOOD SPECIMENOrdering Facility: [facility] Address: [address] [place] [address] Performed By: #### 5 7021-8 ####[facility] [id number] [place] [address] [place] Nucleated RBC (Bld) [#/Vol] 10*3/uL Normal <0.01 [facility] Comment on above: Order Comment: Speci men Type: BLOOD SPECIMENOrdering Facility: [facility] Address: [address] [place] [address] Performed By: #### 5 7021-8 ####[facility] [id number] [place] [address] [place] Nucleated RBC/100 WBC (Bld) [Ratio] 0.0 /100 WBC Normal [facility] Comment on above: Order Comment: Speci men Type: BLOOD SPECIMENOrdering Facility: [facility] Address: [address] [place] [address] Performed By: #### 5 7021-8 ####[facility]ITAL[facility]CL[facility] [id number] [place] [address] [place] Platelet mean volume (Bld) [Entitic vol] 10.5 fL Normal 9.0-12.7 [facility] Comment on above: Order Comment: Speci men Type: BLOOD SPECIMENOrdering Facility: [facility] Address: [address] [place] [address] Performed By: #### 5 7021-8 ####[facility] DODIEYOLANDAA [id number] [place] [address] [place] Platelets (Bld) [#/Vol] 244 10*3/uL Normal 150-400 [facility] Comment on above: Order Comment: Speci men Type: BLOOD SPECIMENOrdering Facility: [facility] Address: [address] [place] [address] Performed By: #### 5 7021-8 ####[facility] [id number] [place] [address] [place] RBC (Bld) [#/Vol] 3.69 10*6/uL Low 3.90-5.20 [facility] Comment on above: Order Comment: Speci men Type: BLOOD SPECIMENOrdering Facility: [facility] Address: [address] [place] [address] Performed By: #### 5 7021-8 ####[facility]ITAL[facility]CL[facility] [id number] [place] [address] [place] WBC (Bld) [#/Vol] 10.88 10*3/uL Normal 3.70-11.00 [facility] Comment on above: Order Comment: Speci men Type: BLOOD SPECIMENOrdering Facility: [facility] Address: [address] [place] [address] Performed By: #### 5 7021-8 ####[facility]ITAL[facility]CL[facility] [id number] [place] [address] [place] Comprehensive metabolic 2000 panelon 03-28-2025 Albumin [Mass/Vol] 3.3 g/dL Low 3.9-4.9 [facility] Comment on above: Order Comment: Speci men Type: BLOOD SPECIMENOrdering Facility: [facility] Address: [address] [place] [address] Performed By: #### 6 30-4 #### [facility] CLIA [id number] [address] [place] [address] [place] ALP [Catalytic activity/Vol] 139 U/L High 34-123 [facility] Comment on above: Order Comment: Speci men Type: BLOOD SPECIMENOrdering Facility: [facility] Address: [address] [place] [address] Performed By: #### 6 30-4 #### [facility] CLIA [id number] [address] [place] [address] [place] ALT [Catalytic activity/Vol] 7 U/L Normal 7-38 [facility] Comment on above: Order Comment: Speci men Type: BLOOD SPECIMENOrdering Facility: [facility] Address: [address] [place] [address] Performed By: #### 6 30-4 #### [facility] CLIA [id number] [address] [place] [address] [place] Anion gap [Moles/Vol] 11 mmol/L Normal 8-15 [facility] Comment on above: Order Comment: Speci men Type: BLOOD SPECIMENOrdering Facility: [facility] Address: [address] [place] [address] Performed By: #### 6 30-4 #### [facility] CLIA [id number] [address] [place] [address] [place] AST [Catalytic activity/Vol] 12 U/L Low 13-35 [facility] Comment on above: Order Comment: Speci men Type: BLOOD SPECIMENOrdering Facility: [facility] Address: [address] [place] [address] Performed By: #### 6 30-4 #### [facility] CLIA [id number] [address] [place] [address] [place] Bilirubin [Mass/Vol] 0.2 mg/dL Normal 0.2-1.3 [facility] Comment on above: Order Comment: Speci men Type: BLOOD SPECIMENOrdering Facility: [facility] Address: [address] [place] [address] Performed By: #### 6 30-4 #### [facility] CLIA [id number] [address] [place] [address] [place] Calcium [Mass/Vol] 8.8 mg/dL Normal 8.5-10.2 [facility] Comment on above: Order Comment: Speci men Type: BLOOD SPECIMENOrdering Facility: [facility] Address: [address] [place] [address] Performed By: #### 6 30-4 #### [facility] CLIA [id number] [address] [place] [address] [place] Chloride [Moles/Vol] 101 mmol/L Normal 98-107 [facility] Comment on above: Order Comment: Speci men Type: BLOOD SPECIMENOrdering Facility: [facility] Address: [address] [place] [address] Performed By: #### 6 30-4 #### [facility] CLIA [id number] [address] [place] [address] [place] CO2 [Moles/Vol] 21 mmol/L Low 22-30 [facility] Comment on above: Order Comment: Speci men Type: BLOOD SPECIMENOrdering Facility: [facility] Address: [address] [place] [address] Performed By: #### 6 30-4 #### [facility] CLIA [id number] [address] [place] [address] [place] Creatinine [Mass/Vol] 0.55 mg/dL Low 0.58-0.96 [facility] Comment on above: Order Comment: Kirk arellano Type: BLOOD SPECIMENOrdering Facility: [facility] Address: [address] [place] [address] Performed By: #### 6 30-4 #### [facility] CLIA [id number] [address] [place] [address] [place] eGFRcr SerPlBld CKD-EPI 2020 124 mL/min/1.73m??? Normal >=60 [facility] Comment on above: Order Comment: Kirk arellano Type: BLOOD SPECIMENOrdering Facility: [facility] Address: [address] [place] [address] Result Comment: Eileen mated Glomerular Filtration Rate [...] GFR. Performed By: #### 6 30-4 #### [facility] CLIA [id number] [address] [place] [address] [place] Glucose [Mass/Vol] 206 mg/dL High 74-99 [facility] Comment on above: Order Comment: Kirk arellano Type: BLOOD SPECIMENOrdering Facility: [facility] Address: [address] [place] [address] Result Comment: The [place] Diabetes Association (ADA) provides guidance for cutoff [...] Standards of Medical Care in Diabetes 2016, [place] [employer]. Diabetes Care. 2016.39(Suppl 1). Performed By: #### 6 30-4 #### [facility] CLIA [id number] [address] [place] [address] [place] Potassium [Moles/Vol] 3.7 mmol/L Normal 3.7-5.1 [facility] Comment on above: Order Comment: Speci men Type: BLOOD SPECIMENOrdering Facility: [facility] Address: [address] [place] [address] Performed By: #### 6 30-4 #### [facility] CLIA [id number] [address] [place] [address] [place] Protein [Mass/Vol] 6.8 g/dL Normal 6.3-8.0 [facility] Comment on above: Order Comment: Speci men Type: BLOOD SPECIMENOrdering Facility: [facility] Address: [address] [place] [address] Performed By: #### 6 30-4 #### [facility] CLIA [id number] [address] [place] [address] [place] Sodium [Moles/Vol] 133 mmol/L Low 136-144 [facility] Comment on above: Order Comment: Speci men Type: BLOOD SPECIMENOrdering Facility: [facility] Address: [address] [place] [address] Performed By: #### 6 30-4 #### [facility] CLIA [id number] [address] [place] [address] [place] Urea nitrogen [Mass/Vol] 5 mg/dL Low 7-21 [facility] Comment on above: Order Comment: Speci men Type: BLOOD SPECIMENOrdering Facility: [facility] Address: [address] [place] [address] Performed By: #### 6 30-4 #### [facility] CLIA [id number] [address] [place] [id number] [place] GESTATIONAL GLUCOSE SCREEN, 1-HOUR, 50 GRAM, NON-FASTINGon 03-28-2025 Glucose [Mass/Vol] 210 mg/dL High 74-134 [facility] Comment on above: Order Comment: Speci adan Type: BLOOD SPECIMENOrdering Facility: [facility] Address: [address] [place] [address] Result Comment: [facility] Congress of Obstetricians and Gynecologists (Faye/Tonny) guidelines state a gestational diabetes mellitus positive screen is made, in women not previously diagnosed with overt diabetes, when the 1 hr plasma glucose level is equal to or above 140 mg/dL. The [facility] On Site [employer] Technician and [facility] [place] recommends a 135 mg/dL cutoff. Performed By: #### G LTGST ####[facility] [id number] [place] [address] [place] Reagin and Treponema pallidu m IgG and IgM [Interp]on 03-28-2025 T. pallidum IgG+IgM IA Ql (S) Non-Reactive Normal Nonreactive [facility] Comment on above: Order Comment: Speci men Type: BLOOD SPECIMENOrdering Facility: [facility] Address: [address] [place] [address] Performed By: #### 7 3752-8 ####[facility] LABCLIA [id number] [place] [id number] [place] Reagin+T pallidum IgG+IgM Se rPl-Impon 03-28-2025 Reagin and Treponema pallidum IgG and IgM [Interp] Cannot exclude recent Treponemal infection if specimen collected within 7-10 days after appearance of suspect lesions or 2-3 weeks after an exposure. Clinical correlation is required. Normal [facility] Comment on above: Order Comment: Carlosi adan Type: BLOOD SPECIMENOrdering Facility: [facility] Address: [address] [place] [address] Performed By: #### 7 3752-8 ####[facility] LABCLIA [id number] [place] [address] [place] Examination level ultrasound [...] 11 oz EFW by: [place] (HC-AC-FL) Extended Seed Analysis Laboratory Assistant 5.9 mm CM 5.9 mm 79% Nicolaides [...] normal LVOT view: normal 3-vessel view: normal 8-tappxx-rrkdivh view: normal Heart / Thorax Situs: situs [...] Read By: Sharona Avila M.D. MATERNAL MEDICINE [facility] Radiology Study observation (narrative) [facility] CARRIER SCREEN, STANDARDon 0 12-19-2024 CARRIER SCREEN RESULTS View results in Scanned Documents link when available. Normal [facility] Comment on above: Order Comment: Speci men Type: BLOOD SPECIMENOrdering Facility: [facility] Address: [address] [place] [address] Performed By: #### 6 30-4 #### [facility] CLIA [id number] [address] [place] [address] [place] CBC W Auto Differential pane l (Bld)on 12-19-2024 Basophils (Bld) [#/Vol] 0.03 10*3/uL Normal <0.11 [facility] Comment on above: Order Comment: Speci men Type: BLOOD SPECIMENOrdering Facility: [facility] Address: [address] [place] [address] Performed By: #### 5 7021-8 ####[facility] LABCLIA [id number] [place] [address] [place] Basophils/100 WBC (Bld) 0.4 % Normal [facility] Comment on above: Order Comment: Speci men Type: BLOOD SPECIMENOrdering Facility: [facility] Address: [address] [place] [address] Performed By: #### 5 7021-8 ####[facility] LABCLIA [id number] [place] [address] [place] Differential cell count method Nom (Bld) Auto Normal [facility] Comment on above: Order Comment: Speci men Type: BLOOD SPECIMENOrdering Facility: [facility] Address: [address] [place] [address] Performed By: #### 5 7021-8 ####[facility] LABCLIA [id number] [place] [address] [place] Eosinophils (Bld) [#/Vol] 0.07 10*3/uL Normal <0.46 [facility] Comment on above: Order Comment: Speci men Type: BLOOD SPECIMENOrdering Facility: [facility] Address: [address] [place] [address] Performed By: #### 5 7021-8 ####[facility] LABCLIA [id number] [place] [address] [place] Eosinophils/100 WBC (Bld) 0.9 % Normal [facility] Comment on above: Order Comment: Speci men Type: BLOOD SPECIMENOrdering Facility: [facility] Address: [address] [place] [address] Performed By: #### 5 7021-8 ####[facility] LABCLIA [id number] [place] [address] [place] Erythrocyte distribution width (RBC) [Ratio] 11.7 % Normal 11.5-15.0 [facility] Comment on above: Order Comment: Speci men Type: BLOOD SPECIMENOrdering Facility: [facility] Address: [address] [place] [address] Performed By: #### 5 7021-8 ####[facility] LABCLIA [id number] [place] [id number] [place] Hematocrit (Bld) [Volume fraction] 35.8 % Low 36.0-46.0 [facility] Comment on above: Order Comment: Speci men Type: BLOOD SPECIMENOrdering Facility: [facility] Address: [address] [place] [address] Performed By: #### 5 7021-8 ####[facility] LABCLIA [id number] [address] [address] [place] Hemoglobin (Bld) [Mass/Vol] 12.5 g/dL Normal 11.5-15.5 [facility] Comment on above: Order Comment: Speci men Type: BLOOD SPECIMENOrdering Facility: [facility] Address: [address] [place] [address] Performed By: #### 5 7021-8 ####[facility] LABCLIA [id number] [place] [address] [place] Immature granulocytes (Bld) [#/Vol] 0.03 10*3/uL Normal <0.10 [facility] Comment on above: Order Comment: Speci men Type: BLOOD SPECIMENOrdering Facility: [facility] Address: [address] [place] [address] Performed By: #### 5 7021-8 ####[facility] LABCLIA [id number] [place] [address] [place] Immature granulocytes/100 WBC (Bld) 0.4 % Normal [facility] Comment on above: Order Comment: Speci men Type: BLOOD SPECIMENOrdering Facility: [facility] Address: [address] [place] [address] Performed By: #### 5 7021-8 ####[facility] LABCLIA [id number] [place] [address] [place] Lymphocytes (Bld) [#/Vol] 1.60 10*3/uL Normal 1.00-4.00 [facility] Comment on above: Order Comment: Speci men Type: BLOOD SPECIMENOrdering Facility: [facility] Address: [address] [place] [address] Performed By: #### 5 7021-8 ####[facility] LABCLIA [id number] [place] [address] [place] Lymphocytes/100 WBC (Bld) 19.7 % Normal [facility] Comment on above: Order Comment: Speci men Type: BLOOD SPECIMENOrdering Facility: [facility] Address: [address] [place] [address] Performed By: #### 5 7021-8 ####[facility] [id number] [place] [address] [place] MCH (RBC) [Entitic mass] 31.2 pg Normal 26.0-34.0 [facility] Comment on above: Order Comment: Speci men Type: BLOOD SPECIMENOrdering Facility: [facility] Address: [address] [place] [address] Performed By: #### 5 7021-8 ####[facility] [id number] [place] [address] [place] MCHC (RBC) [Mass/Vol] 34.9 g/dL Normal 30.5-36.0 [facility] Comment on above: Order Comment: Speci men Type: BLOOD SPECIMENOrdering Facility: [facility] Address: [address] [place] [address] Performed By: #### 5 7021-8 ####[facility] [id number] [place] [address] [place] MCV (RBC) [Entitic vol] 89.3 fL Normal 80.0-100.0 [facility] Comment on above: Order Comment: Speci men Type: BLOOD SPECIMENOrdering Facility: [facility] Address: [address] [place] [address] Performed By: #### 5 7021-8 ####[facility] [id number] [place] [address] [place] Monocytes (Bld) [#/Vol] 0.47 10*3/uL Normal <0.87 [facility] Comment on above: Order Comment: Speci men Type: BLOOD SPECIMENOrdering Facility: [facility] Address: [address] [place] [address] Performed By: #### 5 7021-8 ####[facility] LABCLIA [id number] [address], [place] [address] [place] Monocytes/100 WBC (Bld) 5.8 % Normal [facility] Comment on above: Order Comment: Speci men Type: BLOOD SPECIMENOrdering Facility: [facility] Address: [address] [place] [address] Performed By: #### 5 7021-8 ####[facility] LABCLIA [id number] [address], [place] [address] [place] Neutrophils (Bld) [#/Vol] 5.94 10*3/uL Normal 1.45-7.50 [facility] Comment on above: Order Comment: Speci men Type: BLOOD SPECIMENOrdering Facility: [facility] Address: [address] [place] [address] Performed By: #### 5 7021-8 ####[facility] LABIA [id number] [place] [address] [place] Neutrophils/100 WBC (Bld) 72.8 % Normal [facility] Comment on above: Order Comment: Speci men Type: BLOOD SPECIMENOrdering Facility: [facility] Address: [address] [place] [address] Performed By: #### 5 7021-8 ####[facility] LABIA [id number] [place] [address] [place] Nucleated RBC (Bld) [#/Vol] 10*3/uL Normal <0.01 [facility] Comment on above: Order Comment: Speci men Type: BLOOD SPECIMENOrdering Facility: [facility] Address: [address] [place] [address] Performed By: #### 5 7021-8 ####[facility] LABCLIA [id number] [address], [facility] [place] Nucleated RBC/100 WBC (Bld) [Ratio] 0.0 /100 WBC Normal [facility] Comment on above: Order Comment: Speci men Type: BLOOD SPECIMENOrdering Facility: [facility] Address: [address] [place] [address] Performed By: #### 5 7021-8 ####[facility] LABIA [id number] [address] [address] [place] Platelet mean volume (Bld) [Entitic vol] 11.3 fL Normal 9.0-12.7 [facility] Comment on above: Order Comment: Speci men Type: BLOOD SPECIMENOrdering Facility: [facility] Address: [address] [place] [address] Performed By: #### 5 7021-8 ####[facility] LABIA [id number] [place] [address] [place] Platelets (Bld) [#/Vol] 293 10*3/uL Normal 150-400 [facility] Comment on above: Order Comment: Speci men Type: BLOOD SPECIMENOrdering Facility: [facility] Address: [address] [place] [address] Performed By: #### 5 7021-8 ####[facility] LABIA [id number] [place] [address] [place] RBC (Bld) [#/Vol] 4.01 10*6/uL Normal 3.90-5.20 [facility] Comment on above: Order Comment: Speci men Type: BLOOD SPECIMENOrdering Facility: [facility] Address: [address] [place] [address] Performed By: #### 5 7021-8 ####[facility] LABIA [id number] [place] [address] [place] WBC (Bld) [#/Vol] 8.14 10*3/uL Normal 3.70-11.00 [facility] Comment on above: Order Comment: Speci men Type: BLOOD SPECIMENOrdering Facility: [facility] Address: [address] [place] [address] Performed By: #### 5 7021-8 ####[facility] LABCLIA [id number] [place] [address] [place] [facility] Comprehensive metabolic 2000 panelon 12-19-2024 Albumin [Mass/Vol] 4.1 g/dL Normal 3.9-4.9 [facility] Comment on above: Order Comment: Speci men Type: BLOOD SPECIMENOrdering Facility: [facility] Address: [address] [place] [address] Performed By: #### 6 30-4 #### [facility] CLIA [id number] [address] [place] [address] [place] ALP [Catalytic activity/Vol] 131 U/L High 34-123 [facility] Comment on above: Order Comment: Speci men Type: BLOOD SPECIMENOrdering Facility: [facility] Address: [address] [place] [address] Performed By: #### 6 30-4 #### [facility] CLIA [id number] [address] [place] [address] [place] ALT [Catalytic activity/Vol] 80 U/L High 7-38 [facility] Comment on above: Order Comment: Speci men Type: BLOOD SPECIMENOrdering Facility: [facility] Address: [address] [place] [address] Performed By: #### 6 30-4 #### [facility] CLIA [id number] [address] [place] [address] [place] Anion gap [Moles/Vol] 8 mmol/L Normal 8-15 [facility] Comment on above: Order Comment: Speci men Type: BLOOD SPECIMENOrdering Facility: [facility] Address: [address] [place] [address] Performed By: #### 6 30-4 #### [facility] CLIA [id number] [address] [place] [address] [place] AST [Catalytic activity/Vol] 63 U/L High 13-35 [facility] Comment on above: Order Comment: Speci men Type: BLOOD SPECIMENOrdering Facility: [facility] Address: [address] [place] [address] Performed By: #### 6 30-4 #### [facility] CLIA [id number] [address] [place] [address] [place] Bilirubin [Mass/Vol] 0.3 mg/dL Normal 0.2-1.3 [facility] Comment on above: Order Comment: Speci men Type: BLOOD SPECIMENOrdering Facility: [facility] Address: [address] [place] [address] Performed By: #### 6 30-4 #### [facility] CLIA [id number] [address] [place] [address] [place] Calcium [Mass/Vol] 9.4 mg/dL Normal 8.5-10.2 [facility] Comment on above: Order Comment: Speci men Type: BLOOD SPECIMENOrdering Facility: [facility] Address: [address] [place] [address] Performed By: #### 6 30-4 #### [facility] CLIA [id number] [address] [place] [address] [place] Chloride [Moles/Vol] 100 mmol/L Normal 98-107 [facility] Comment on above: Order Comment: Speci men Type: BLOOD SPECIMENOrdering Facility: [facility] Address: [address] [place] [address] Performed By: #### 6 30-4 #### [facility] CLIA [id number] [address] [place] [address] [place] CO2 [Moles/Vol] 24 mmol/L Normal 22-30 [facility] Comment on above: Order Comment: Speci men Type: BLOOD SPECIMENOrdering Facility: [facility] Address: [address] [place] [address] Performed By: #### 6 30-4 #### [facility] CLIA [id number] [address] [place] [address] [place] Creatinine [Mass/Vol] 0.63 mg/dL Normal 0.58-0.96 [facility] Comment on above: Order Comment: Kirk men Type: BLOOD SPECIMENOrdering Facility: [facility] Address: [address] [place] [address] Performed By: #### 6 30-4 #### [facility] CLIA [id number] [address] [place] [address] [place] Creatinine and Glomerular filtration rate.predicted panel (S/P/Bld) 120 mL/min/1.73m??? Normal >=60 [facility] Comment on above: Order Comment: Kirk arellano Type: BLOOD SPECIMENOrdering Facility: [facility] Address: [address] [place] [address] Result Comment: Eileen mated Glomerular Filtration Rate [...] GFR. Performed By: #### 6 30-4 #### [facility] CLIA [id number] [address] [place] [address] [place] Glucose [Mass/Vol] 106 mg/dL High 74-99 [facility] Comment on above: Order Comment: Carlosi men Type: BLOOD SPECIMENOrdering Facility: [facility] Address: [address] [place] [address] Result Comment: The [place] Diabetes Association (ADA) provides guidance for cutoff [...] Standards of Medical Care in Diabetes 2016, [place] Diabetes Association. Diabetes Care. 2016.39(Suppl 1). Performed By: #### 6 30-4 #### [facility] CLIA [id number] [address] [place] [address] [place] Potassium [Moles/Vol] 3.7 mmol/L Normal 3.7-5.1 [facility] Comment on above: Order Comment: Speci men Type: BLOOD SPECIMENOrdering Facility: [facility] Address: [address] [place] [address] Performed By: #### 6 30-4 #### [facility] CLIA [id number] [address] [place] [address] [place] Protein [Mass/Vol] 7.4 g/dL Normal 6.3-8.0 [facility] Comment on above: Order Comment: Speci men Type: BLOOD SPECIMENOrdering Facility: [facility] Address: [address] [place] [address] Performed By: #### 6 30-4 #### [facility] CLIA [id number] [address] [place] [address] [place] Sodium [Moles/Vol] 132 mmol/L Low 136-144 [facility] Comment on above: Order Comment: Speci men Type: BLOOD SPECIMENOrdering Facility: [facility] Address: [address] [place] [address] Performed By: #### 6 30-4 #### [facility] CLIA [id number] [address] [place] [address] [place] Urea nitrogen [Mass/Vol] 7 mg/dL Normal 7-21 [facility] Comment on above: Order Comment: Speci men Type: BLOOD SPECIMENOrdering Facility: [facility] Address: [address] [place] [address] Performed By: #### 6 30-4 #### [facility] CLIA [id number] [address] [place] [address] [place] HBV surface Ag Ser Qlon 11-28 HBV surface Ag Ql (S) Negative Normal Negative [facility] Comment on above: Order Comment: Speci men Type: BLOOD SPECIMENOrdering Facility: [facility] Address: [address] [place] [address] Performed By: #### 6 30-4 #### [facility] CLIA [id number] [address] [place] [address] [place] HCV Ab Ser Qlon 12-19-2024 HCV Ab Ql (S) Negative Normal Negative [facility] Comment on above: Order Comment: Speci men Type: BLOOD SPECIMENOrdering Facility: [facility] Address: [address] [place] [address] Result Comment: The result suggests no evidence of infection with Hepatitis C virus. Should recent infection be suspected, repeat testing may be considered 4-6 weeks after this draw. Performed By: #### 1 6128-1 ####[facility] LABCLIA [id number] [place] [address] [place] HIV 1+2 Ab IA Qlon HIV 1 and 2 Ab IA.rapid Nom (S/P/Bld) Normal [facility] Comment on above: Order Comment: Speci men Type: BLOOD SPECIMENOrdering Facility: [facility] Address: [address] [place] [address] Result Comment: Test not indicated. Performed By: #### 6 30-4 #### [facility] CLIA [id number] [address] [place] [address] [place] HIV 1+2 Ab+HIV1 p24 Ag IA Ql Non-Reactive Normal Nonreactive [facility] Comment on above: Order Comment: Speci men Type: BLOOD SPECIMENOrdering Facility: [facility] Address: [address] [place] [address] Performed By: #### 6 30-4 #### [facility] CLIA [id number] [address] [place] [address] [place] HIV immunoassay testing algorithm interpretation (S/P/Bld) [Interp] Normal [facility] Comment on above: Order Comment: Speci men Type: BLOOD SPECIMENOrdering Facility: [facility] Address: [address] [place] [address] Result Comment: No e vidence of HIV-1 or HIV-2 infection. Should recent infection be suspected, repeat testing may be considered 2-3 weeks after this draw. [place] Rev. Code 3701.243(E): This information has been [...] diagnoses. Performed By: #### 6 30-4 #### [facility] CLIA [id number] [address] [place] [address] [place] HbA1c (Bld)on 12-19-2024 Average glucose Estimated from glycated hemoglobin (Bld) [Mass/Vol] 71 mg/dL Normal [facility] Comment on above: Order Comment: Speci men Type: BLOOD SPECIMENOrdering Facility: [facility] Address: [address] [place] [address] Result Comment: eAG: (Estimated average glucose) is a calculated value from HgbA1c and is rental representative of the average blood glucose level in the last 2-3 month period. Performed By: #### 5 5454-3 ####[facility] LABCLIA [id number] [place] [address] [place] HbA1c (Bld) [Mass fraction] 4.1 % Low 4.3-5.6 [facility] Comment on above: Order Comment: Speci men Type: BLOOD SPECIMENOrdering Facility: [facility] Address: [address] [place] [address] Result Comment: [place] Diabetes Association guidelines indicate that patients with HgbA1c in the range 5.7-6.4% are at increased risk for development of diabetes, and intervention by lifestyle modification may be beneficial. HgbA1c greater or equal to 6.5% is considered diagnostic of diabetes. Performed By: #### 5 5454-3 ####[facility] LABCLIA [id number] [place] [address] [place] [id number] PLUSon 12-19-2024 Cell-free DNA./Cell-free DNA.total Dosage of chromosome-specific cfDNA (cfDNA) [Molar fraction] 9% Normal [facility] Comment on above: Order Comment: Speci men Type: BLOOD SPECIMENOrdering Facility: [facility] Address: [address] [place] [address] Performed By: #### 6 30-4 #### [facility] CLIA [id number] [address] [place] [address] [place] Chr 13+18+21+X+Y aneuploidy Dosage of chromosome-specific cfDNA Ql (cfDNA) Negative Normal [facility] Comment on above: Order Comment: Speci men Type: BLOOD SPECIMENOrdering Facility: [facility] Address: [address] [place] [address] Performed By: #### 6 30-4 #### [facility] CLIA [id number] [address] [place] [address] [place] Chr 21 trisomy Dosage of chromosome-specific cfDNA Ql (cfDNA) Negative Normal [facility] Comment on above: Order Comment: Speci men Type: BLOOD SPECIMENOrdering Facility: [facility] Address: [address] [place] [address] Performed By: #### 6 30-4 #### [facility] CLIA [id number] [address] [place] [address] OF [place] Chr X and Y aneuploidy risk Sequencing Ql (cfDNA) [Interp] Not detected Normal [facility] Comment on above: Order Comment: Speci men Type: BLOOD SPECIMENOrdering Facility: [facility] Address: [address] [place] [address] Result Comment: Not Detected Not Detected Performed By: #### 6 30-4 #### [facility] CLIA [id number] [address] [place] [address] [place] Citation Cameron (Reference lab test) Comment Normal [facility] Comment on above: Order Comment: Speci men Type: BLOOD SPECIMENOrdering Facility: [facility] Address: [address] [place] [address] Result Comment: 1. P spenser HEARD et al. [place]a Med. 2012;14(3):296-305. 2. Alok VALLADARES et al. Prenat Diag. 2013;33(6):591-597. 3. Pablo C, et al. Clin Chem. 2015 Apr;61(4):608-616. 4. Rocio HEARD, et al. [place] Med. 2011;13(11):913-920. 5. ACOG/SMFM Practice Bulletin No. 226, May 2020. Performed By: #### 6 30-4 #### [facility] CLIA [id number] [address] [place] [address] [place] Gestational age Estimated from conception date Daly Normal [facility] Comment on above: Order Comment: Speci men Type: BLOOD SPECIMENOrdering Facility: [facility] Address: [address] [place] [address] Performed By: #### 6 30-4 #### [facility] CLIA [id number] [address] [place] [address] OF [place] GESTATIONALAGE AGE > OR = 9W Yes Normal [facility] Comment on above: Order Comment: Speci men Type: BLOOD SPECIMENOrdering Facility: [facility] Address: [address] [place] [address] Performed By: #### 6 30-4 #### [facility] CLIA [id number] [address] [place] [address] Laboratory comment Cameron (Report) Comment Normal [facility] Comment on above: Order Comment: Specarmando arellano Type: BLOOD SPECIMENOrdering Facility: [facility] Address: [address] [place] [address] Result Comment: The MaterniT(R) 21 PLUS laboratory-developed test (LDT) analyzes circulating cell-free DNA from a maternal blood sample. This test is used for screening purposes and not diagnostic. Clinical correlation is recommended. Validation data on twin pregnancies is limited and the ability of this test to detect aneuploidy in higher multiple gestations has not yet been validated. Performed By: #### 6 30-4 #### [facility] CLIA [id number] [address] [place] [address] educational programming director name Nom (Provider) Comment Normal [facility] Comment on above: Order Comment: Kirk arellano Type: BLOOD SPECIMENOrdering Facility: [facility] Address: [address] [place] [address] Result Comment: This specimen showed an expected representation of chromosome 21, 18 and 13 material. Clinical correlation is suggested. Comment Thomas Concepcion MD, PhD, Director, [email or web address] Performed By: #### 6 30-4 #### [facility] CLIA [id number] [address] [place] [address] LIMITATIONS OF THE TEST Comment Normal [facility] Comment on above: Order Comment: Kirk arellano Type: BLOOD SPECIMENOrdering Facility: [facility] Address: [address] [place] [address] Result Comment: Jv peña the results of [...] Fragmin(R)). Performed By: #### 6 30-4 #### [facility] CLIA [id number] [address] [place] [address] [place] Monosomy X risk Dosage of chromosome-specific cfDNA Ql (Plasma cell-free+WBC DNA) [Interp] Not detected Normal [facility] Comment on above: Order Comment: Speci men Type: BLOOD SPECIMENOrdering Facility: [facility] Address: [address] [place] [address] Performed By: #### 6 30-4 #### [facility] CLIA [id number] [address] [place] [address] NEGATIVE PREDICTIVE VALUE Note Normal [facility] Comment on above: Order Comment: Speci men Type: BLOOD SPECIMENOrdering Facility: [facility] Address: [address] [place] [address] Result Comment: The Negative Predictive Value (NPV) for trisomy 21, 18, and 13 is greater than 99%. The NPV for SCA and ESS cannot be calculated as SCA and ESS are only reported when an abnormality is detected. Performed By: #### 6 30-4 #### [facility] CLIA [id number] [address] [place] [address] OF [place] PERFORMANCE CHARACTERISTICS Note Normal [facility] Comment on above: Order Comment: Speci men Type: BLOOD SPECIMENOrdering Facility: [facility] Address: [address] [place] [address] Result Comment: ! Sex ! Accuracy: 99.4% [...] ! ! ! * As reported in [facility] database nstd37 [https://www.ncbi.nlm.nih.gov/dbvar/studies/nstd37/ ] # Estimated Sensitivity. [...] only. Performed By: #### 6 - #### [facility] CLIA [id number] [address] [place] [address] STATES OF [place] POSITIVE PREDICTIVE VALUE N/A Normal [facility] Comment on above: Order Comment: Speci men Type: BLOOD SPECIMENOrdering Facility: [facility] Address: [address] [place] [address] Performed By: #### 6 - #### [facility] CLIA [id number] [address] [place] [address] [place] Reference Lab Test Method Comment Normal [facility] Comment on above: Order Comment: Speci men Type: BLOOD SPECIMENOrdering Facility: [facility] Address: [address] [place] [address] Result Comment: See Notes Circulating cell-free DNA [...] 22. Performed By: #### 6 30-4 #### [facility] CLIA [id number] [address] [place] [address] [place] Service comment (Unsp spec) [Interp] Comment Normal [facility] Comment on above: Order Comment: Speci men Type: BLOOD SPECIMENOrdering Facility: [facility] Address: [address] [place] [address] Result Comment: See Notes [employer] is a subsidiary of [employer], using the brand [facility]. This test was developed and its performance characteristics determined by [facility]. It has not been cleared or approved by the Food and Drug Administration. This laboratory is certified under the Clinical Laboratory Improvement Amendments (CLIA) as qualified to perform high complexity clinical laboratory testing and accredited by the College of [employer] Pathologists (CAP). If there is future clinical need for adding MaterniT GENOME testing, this specimen will be available until term. [facility] samples will not be retained beyond 60 days. [facility] patients will have to send a new sample for re-sequencing ([facility] Test Code: [id number]). Performed By: #### 6 30-4 #### [facility] CLIA [id number] [address] [place] [address] [place] Sex Dosage of chromosome-specific cfDNA Nom (cfDNA) Comment Normal [facility] Comment on above: Order Comment: Speci men Type: BLOOD SPECIMENOrdering Facility: [facility] Address: [address] [place] [address] Result Comment: Cons istent with Male Performed By: #### 6 30-4 #### [facility] CLIA [id number] [address] [place] [address] [place] Test performance information Cameron (Unsp spec) Comment Normal [facility] Comment on above: Order Comment: Speci men Type: BLOOD SPECIMENOrdering Facility: [facility] Address: [address] [place] [address] Result Comment: The performance characteristics of the MaterniT(R) 21 PLUS laboratory-developed test (LDT) have been determined in a clinical validation study with women at increased risk for chromosomal aneuploidy.[1-4] Performed By: #### 6 30-4 #### [facility] CLIA [id number] [address] [place] [address] [place] Trisomy 13 risk Dosage of chromosome-specific cfDNA Ql (cfDNA) [Interp] Negative Normal [facility] Comment on above: Order Comment: Speci men Type: BLOOD SPECIMENOrdering Facility: [facility] Address: [address] [place] [address] Performed By: #### 6 30-4 #### [facility] CLIA [id number] [address] [place] [address] STATES [place] Trisomy 18 risk Dosage of chromosome-specific cfDNA Ql (Plasma cell-free+WBC DNA) [Interp] Negative Normal [facility] Comment on above: Order Comment: Speci men Type: BLOOD SPECIMENOrdering Facility: [facility] Address: [address] [place] [address] Performed By: #### 6 30-4 #### [facility] CLIA [id number] [address] [place] [address] [place] Prot/Creat Uron 12-19-2024 Protein/Creatinine (U) [Mass ratio] 0.09 mg/mg Normal <0.15 [facility] Comment on above: Order Comment: Speci men Type: URINE SPECIMENOrdering Facility: [facility] Address: [address] [place] [address] Result Comment: Adul t Proteinuria Categories: <0.15 mg/mg is considered normal to mildly increased 0.15 - 0.50 mg/mg is considered moderately increased >0.50 mg/mg is considered severely increased KDIGO. (2013). KDIGO 2012 Clinical Practice Guideline for the Evaluation and Management of Chronic Kidney Disease. Official Journal of the International Society of Nephrology, 3(1), 1-150. Performed By: #### 2 890-2 ####[facility]CLIA [id number] [place] [address] [place] Protein/Creatinine (U) [Mass ratio]on 12-19-2024 Creatinine (U) [Mass/Vol] 142.1 mg/dL Normal 20.0-300.0 [facility] Comment on above: Order Comment: Speci men Type: URINE SPECIMENOrdering Facility: [facility] Address: [address] [place] [address] Performed By: #### 2 890-2 ####[facility]CLIA [id number] [place] [address] [place] Protein (U) [Mass/Vol] 13 mg/dL Normal 0-20 [facility] Comment on above: Order Comment: Speci men Type: URINE SPECIMENOrdering Facility: [facility] Address: [address] [place] [address] Performed By: #### 2 890-2 ####[facility] LABCLIA [id number] [place] [address] [place] RUBELLA IGG ANTIBODYon 12-19 RUBELLA IGG AB, QUAL Positive Normal Positive [facility] Comment on above: Order Comment: Speci men Type: BLOOD SPECIMENOrdering Facility: [facility] Address: [address] [place] [address] Result Comment: The result suggests recent or past exposure to Rubella virus or history of Rubella vaccination. Positive result may also be seen due to presence of passively-transferred antibodies. Please correlate with patient's history. Performed By: #### R UBIGG ####[facility]IA [id number] [place] [address] [place] Reagin and Treponema pallidu m IgG and IgM [Interp]on 12-19-2024 T. pallidum IgG+IgM IA Ql (S) Non-Reactive Normal Nonreactive [facility] Comment on above: Order Comment: Speci men Type: BLOOD SPECIMENOrdering Facility: [facility] Address: [address] [place] [address] Performed By: #### 6 30-4 #### [facility] CLIA [id number] [address] [place] [address] [place] Reagin+T pallidum IgG+IgM Se rPl-Impon 12-19-2024 Reagin and Treponema pallidum IgG and IgM [Interp] Cannot exclude recent Treponemal infection if specimen collected within 7-10 days after appearance of suspect lesions or 2-3 weeks after an exposure. Clinical correlation is required. Normal [facility] Comment on above: Order Comment: Speci men Type: BLOOD SPECIMENOrdering Facility: [facility] Address: [address] [place] [address] Performed By: #### 6 30-4 #### [facility] CLIA [id number] [address] [place] [address] [place] TSH SerPl-aCncon 12-19-2024 TSH Qn 0.539 m[IU]/L Normal 0.270-4.200 [facility] Comment on above: Order Comment: Speci men Type: BLOOD SPECIMENOrdering Facility: [facility] Address: [address] [place] [address] Result Comment: If t he patient is , TSH reference range varies by gestational period: First Trimester (weeks 9-12): 0.180-2.990 mIU/L Second Trimester: 0.110-3.980 mIU/L Third Trimester: 0.480-4.710 mIU/L Toby Gregory et al. A Practical Approach for the Verifications and Determination of Site- and Trimester-Specific Reference Intervals for Thyroid Function tests in . Thyroid, 2019:29:3:412-420. Danny Peña, et al. 2017 Guidelines of the [place] Thyroid Association for the Diagnosis and Management of Thyroid Disease during and the . Thyroid, 2017:27:3:315-389. Performed By: #### 3 016-3 ####[facility]IA [id number] [address] OF [place] TYPE + SCREEN PRENATALon ABO O Normal [facility] Comment on above: Order Comment: Speci men Type: BLOOD SPECIMENOrdering Facility: [facility] Address: [address] [place] [address] Performed By: #### T SPN ####[facility] BLOOD BANKIA [id number] [place] [address] [place] Rh Nom (Bld) Positive Normal [facility] Comment on above: Order Comment: Speci men Type: BLOOD SPECIMENOrdering Facility: [facility] Address: [address] [place] [address] Performed By: #### T SPN ####[facility] BLOOD BANKCLIA [id number] [place] [address] [place] TYPE AND SCREEN EXPIRATION 12/22/2024 23:59 Normal [facility] Comment on above: Order Comment: Speci men Type: BLOOD SPECIMENOrdering Facility: [facility] Address: [address] [place] [address] Performed By: #### T SPN ####[facility] BLOOD BANKCLIA [id number] [place] [id number] [place] Examination level ultrasound on 12-10-2024 Indication First trimester anatomic survey Impression REMOTE READ The patient is referred for a first trimester anatomy scan including nuchal translucency measurement as clinically indicated. - Single, live, intrauterine . - [place] rump length measurement is consistent with the [...] view: normal 4-chamber view with color: suboptimal 0-[id number]-[id number] view: normal Abdominal cord insertion: normal Stomach: [...] Read By: Sharona Avila M.D. MATERNAL MEDICINE [facility] Radiology Study observation (narrative) [facility] CNCOon 11-20-2024 CNCO Letter Text Normal [facility] 36on 11-08-2024 36 Patient appointment 11/09 cancelled Due to OON-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 [Entitic vol] 91.9 fL 79 - 98 fL [place] Monocytes (Bld) [#/Vol] 1.0 10*3/uL High 0 - 0.8 10*3/uL [place] Monocytes/100 WBC (Bld) 6.0 % 2 - 10 % [place] Platelet mean volume (Bld) [Entitic vol] 8.7 fL 7.4 - 10.4 fL [place] Platelets (Bld) [#/Vol] 293 10*3/uL 140 - 440 10*3/uL [place] RBC (Bld) [#/Vol] 4.34 10*6/uL 3.8 - 5.2 10*6/uL [place] WBC (Bld) [#/Vol] 16.2 10*3/uL High 3.6 - 10.7 10*3/uL [place] Test Performed by [facility], [address] , [address] Hepatic Function Panelon Albumin [Mass/Vol] 4.7 g/dL 3.5 - 5 g/dL [place] ALP [Catalytic activity/Vol] 112 U/L 38 - 126 U/L [place] ALT [Catalytic activity/Vol] 27 U/L 13 - 69 U/L [place] AST [Catalytic activity/Vol] 31 U/L 15 - 46 U/L [place] Bilirubin Ql (U) 0.5 mg/dL 0.2 - 1.3 mg/dL [place] Bilirubin.direct [Mass/Vol] 0.0 mg/dL 0 - 0.3 mg/dL [place] Protein [Mass/Vol] 8.1 g/dL 6.3 - 8.2 g/dL [place] Lipaseon 04-07-2019 Lipase [Catalytic activity/Vol] 41 U/L 23 - 300 U/L [place] Otheron 04-07-2019 Test Performed by [facility], [facility] [address] , [address] Urinalysison 04-07-2019 Appearance (U) Turbid [place] Comment on above: Reference Range: Florentino ar Bacteria, UA Moderate (6-50) /[HPF] [place] Comment on above: Reference Range: Neg ative Bilirubin Urine Negative mg/dL [place] Comment on above: Reference Range: Neg ative Color (U) LIGHT YELLOW [place] Comment on above: Reference Range: Lt. Yellow Glucose, Ur Normal mg/dL [place] Comment on above: Reference Range: Nor mal (<70) Ketones Ql (U) Negative mg/dL [place] Comment on above: Reference Range: Neg ative LEUKOCYTES, UA 500 Ramírez/uL [place] Comment on above: Reference Range: Neg ative Nitrite, Urine Negative [place] Comment on above: Reference Range: Neg ative Occult Blood,Urine Negative mg/dL [place] Comment on above: Reference Range: Neg ative pH (U) 5.5 [pH] [place] Protein (U) [Mass/Vol] Negative mg/dL [place] Comment on above: Reference Range: Neg ative RBC (U) [#/Vol] 0-2 /[HPF] [place] Comment on above: Reference Range: 0-2 Specific Walton, Urine 1.019 [place] Squam Epithel, UA 6-10 /[HPF] [place] Comment on above: Reference Range: 3-5 Urobilinogen, Urine Normal mg/dL [place] Comment on above: Reference Range: Nor mal (0-1) Volume 12 ml [place] WBC, UA 26-50 /[HPF] [place] Comment on above: Reference Range: 0-5 MRI LUMBAR SPINE W/O CONTRAS T [id number] 05-06-2017 MRI LUMBAR SPINE W/O CONTRAST 67403 Performed at [facility] APPROVED BY: Cedrick Stanley MD LUMBAR SPINE [...] upper sacral nerve root sleeves bilaterally. Normal [facility] ED NOTEon 04-27-2017 ED NOTE HNO ID: [id number]: Shira (Rn) ZAFAR Cheungervice: (none)Author Type: Registered NurseType: ED NotesFiled: 04/27/2017 12:20 PMNote Text: DISCHARGE INSTRUCTIONS using teach back:Patient receptive to education,reviewed medications and percautions, f/u,reasons to return,prescription times .......3 percautions with medications, time next medication dueGood body alignment, heat or ice for comfort Medicated on discharge [facility] ED NOTE HNO ID: [id number] Author: Ernesto StoryMedicLamont Kirkpatrick Service: (none) Author Type: Boiler Inspector and Director Oncology Type: ED Notes Filed: 04/27/2017 11:14 AM Note Text: Back pain started yesterday. Leg numbness getting worse over the last few months. Normal [facility] ED PROV NOTEon 04-27-2017 ED PROV NOTE HNO ID: [id number]: Agata Friedman IIIService: (none)Author Type: Physician AssistantType: ED Provider NotesFiled: 04/27/2017 11:56 AMNote Text:ED Provider NotePatient Name: Maribel BrandtMRN: [id number] DATE: 04/27/17HistoryPatient presents with:Back Pain: back pain [...] motor observed.DTR 2+ at patellar bilaterally.Psychiatric : [facility] Care PathLocation of Pain: Low Back [...] Ania Rock III (Jatin) Elder SANDERS04/27/17 1156 [facility] XR LUMBAR 3V AP/LAT/L5-S1on 04-27-2017 XR LUMBAR [...] VELAZQUEZ MD on Apr 27 2017 11:48AM [id number] [facility] Vital Signs Date Time Vital Sign Value Performing Clinician Facility 05-15-2025 10:31-0400 Body mass index (BMI) [Ratio] 33.66 kg/m2 Juan J Daily APRN.CNM Work Phone: [facility] 05-15-2025 10:31-0400 Body weight 86.18 kg Juan J Plotts SILK WINDING MACHINE OPERATOR.CNM Work Phone: [facility] 05-15-2025 10:31-0400 Diastolic blood pressure 70 mm[Hg] Juan J Plotts SILK WINDING MACHINE OPERATOR.CNM Work Phone: [facility] 05-15-2025 10:31-0400 Systolic blood pressure 118 mm[Hg] Juan J Plotts SILK WINDING MACHINE OPERATOR.CNM Work Phone: [facility] 05-01-2025 10:31-0400 Body mass index (BMI) [Ratio] 32.88 kg/m2 Juan J Plotts SILK WINDING MACHINE OPERATOR.CNM Work Phone: [facility] 05-01-2025 10:31-0400 Body weight 84.19 kg Juan J Plotts SILK WINDING MACHINE OPERATOR.CNM Work Phone: [facility] 05-01-2025 10:31-0400 Diastolic blood pressure 66 mm[Hg] Juan J Plotts SILK WINDING MACHINE OPERATOR.CNM Work Phone: [facility] 05-01-2025 10:31-0400 Systolic blood pressure 120 mm[Hg] Juan J Plotts SILK WINDING MACHINE OPERATOR.CNM Work Phone: [facility] 04-12-2025 13:55-0400 Body mass index (BMI) [Ratio] 32.24 kg/m2 Radha Mcpherson MD Work Phone: [facility] 04-12-2025 13:55-0400 Body weight 82.56 kg Radha Mcpherson MD Work Phone: [facility] 04-12-2025 13:55-0400 Diastolic blood pressure 74 mm[Hg] Radha Mcpherson MD Work Phone: [facility] 04-12-2025 13:55-0400 Systolic blood pressure 112 mm[Hg] Radha Mcpherson MD Work Phone: [facility] 03-28-2025 07:50-0400 Body mass index (BMI) [Ratio] 31.71 kg/m2 Sharla Arriaga SILK WINDING MACHINE 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 Work Phone: [facility] 03-28-2025 07:50-0400 Body weight 81.19 kg Sharla Arriaga SILK WINDING MACHINE 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 Work Phone: [facility] 03-28-2025 07:50-0400 Diastolic blood pressure 70 mm[Hg] Sharla Skyury SILK WINDING MACHINE 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 Work Phone: [facility] 03-28-2025 07:50-0400 Systolic blood pressure 118 mm[Hg] Sharla Haury SILK WINDING MACHINE 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 Work Phone: [facility] 02-27-2025 09:15-0400 Body mass index (BMI) [Ratio] 30.5 kg/m2 Juan J Plotts SILK WINDING MACHINE OPERATOR.CNM Work Phone: [facility] 02-27-2025 09:15-0400 Body weight 78.11 kg Juan J Plotts SILK WINDING MACHINE OPERATOR.CNM Work Phone: [facility] 02-27-2025 09:15-0400 Diastolic blood pressure 68 mm[Hg] Juan J Plotts SILK WINDING MACHINE OPERATOR.CNM Work Phone: [facility] 02-27-2025 09:15-0400 Systolic blood pressure 122 mm[Hg] Juan J Plotts SILK WINDING MACHINE OPERATOR.CNM Work Phone: [facility] 01-30-2025 09:00-0400 Body mass index (BMI) [Ratio] 28.98 kg/m2 Juan J Plotts SILK WINDING MACHINE OPERATOR.CNM Work Phone: [facility] 01-30-2025 09:00-0400 Body weight 74.21 kg Juan J Plotts SILK WINDING MACHINE OPERATOR.CNM Work Phone: [facility] 01-30-2025 09:00-0400 Diastolic blood pressure 64 mm[Hg] Juan J Plotts SILK WINDING MACHINE OPERATOR.CNM Work Phone: [facility] 01-30-2025 09:00-0400 Systolic blood pressure 100 mm[Hg] Juan J Plotts SILK WINDING MACHINE OPERATOR.CNM Work Phone: [facility] 01-02-2025 08:00-0400 Body mass index (BMI) [Ratio] 28.17 kg/m2 Juan J Plotts SILK WINDING MACHINE OPERATOR.CNM Work Phone: [facility] 01-02-2025 08:00-0400 Body weight 72.12 kg Juan J Daily SILK WINDING MACHINE OPERATOR.CNM Work Phone: [facility] 01-02-2025 08:00-0400 Diastolic blood pressure 72 mm[Hg] Juan J Plotts SILK WINDING MACHINE OPERATOR.CNM Work Phone: [facility] 01-02-2025 08:00-0400 Systolic blood pressure 108 mm[Hg] Juan J Plotts SILK WINDING MACHINE OPERATOR.CNM Work Phone: [facility] 12-10-2024 10:07-0400 Body mass index (BMI) [Ratio] 27.99 kg/m2 Jayleen Olivas MD Work Phone: [facility] 12-10-2024 10:07-0400 Body weight 71.67 kg Jayleen Olivas MD Work Phone: [facility] 12-10-2024 10:07-0400 Diastolic blood pressure 62 mm[Hg] Jayleen Olivas MD Work Phone: [facility] 12-10-2024 10:07-0400 Systolic blood pressure 100 mm[Hg] Jayleen Olivas MD Work Phone: [facility] 11-07-2024 09:39-0400 Body height 160 cm Sharla Arriaga APRN.PLANETARIUM SKY SHOW TECHNICIAN Work Phone: [facility] 11-07-2024 09:39-0400 Body mass index (BMI) [Ratio] 28.34 kg/m2 Sharla Hasunshine SILK WINDING MACHINE 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 Work Phone: [facility] 11-07-2024 09:39-0400 Body weight 72.58 kg Sharla Arriaga SILK WINDING MACHINE 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 Work Phone: [facility] 11-07-2024 09:39-0400 Diastolic blood pressure 60 mm[Hg] Sharla Haury SILK WINDING MACHINE 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 Work Phone: [facility] 11-07-2024 09:39-0400 Systolic blood pressure 110 mm[Hg] Sharla Arriaga SILK WINDING MACHINE 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 Work Phone: [facility] 10-25-2024 13:29-0500 Body mass index (BMI) [Ratio] 31.33 kg/m2 Alex Saffell SILK WINDING MACHINE OPERATOR - PLANETARIUM SKY SHOW TECHNICIAN Work Phone: [facility] 10-25-2024 13:29-0500 Body weight 75.21 kg Alex Saffell SILK WINDING MACHINE OPERATOR - PLANETARIUM SKY SHOW TECHNICIAN Work Phone: [facility] 10-25-2024 13:29-0500 Diastolic blood pressure 70 mm[Hg] Alex Saffell SILK WINDING MACHINE OPERATOR - PLANETARIUM SKY SHOW TECHNICIAN Work Phone: [facility] 10-25-2024 13:29-0500 Heart rate 80 /min Alex Saffell SILK WINDING MACHINE OPERATOR - PLANETARIUM SKY SHOW TECHNICIAN Work Phone: [facility] 10-25-2024 13:29-0500 Systolic blood pressure 122 mm[Hg] Alex Saffell SILK WINDING MACHINE OPERATOR - PLANETARIUM SKY SHOW TECHNICIAN Work Phone: [facility] 10-01-2024 14:10-0500 Body height 154.9 cm Hayes Joaquín SILK WINDING MACHINE 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 Work Phone: [facility] 10-01-2024 14:10-0500 Body mass index (BMI) [Ratio] 30.84 kg/m2 Hayes Joaquín SILK WINDING MACHINE 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 Work Phone: [facility] 10-01-2024 14:10-0500 Body weight 74 kg Hayes Joaquín SILK WINDING MACHINE 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 Work Phone: [facility] 10-01-2024 14:10-0500 Diastolic blood pressure 75 mm[Hg] Hayes Joaquín SILK WINDING MACHINE 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 Work Phone: [facility] 10-01-2024 14:10-0500 Heart rate 83 /min Hayes Joaquín SILK WINDING MACHINE 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 Work Phone: [facility] 10-01-2024 14:10-0500 Systolic blood pressure 110 mm[Hg] Hayes Joaquín SILK WINDING MACHINE 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 Work Phone: [facility] 01-03-2024 15:20-0400 Body height 154.9 cm Brooklyn Tom PA-C Work Phone: [facility] 01-03-2024 15:20-0400 Body mass index (BMI) [Ratio] 28.34 kg/m2 Brooklyn Tom PA-C Work Phone: [facility] 01-03-2024 15:20-0400 Body temperature 98.29 [degF] Brooklyn Tom PA-C Work Phone: [facility] 01-03-2024 15:20-0400 Body weight 68.04 kg Brooklyn Tom PA-C Work Phone: [facility] 08-17-2023 05:34-0500 Diastolic blood pressure 90 mm[Hg] [facility] 08-17-2023 05:34-0500 Heart rate 76 /min [facility] 08-17-2023 05:34-0500 Respiratory rate 16 /min [facility] 08-17-2023 05:34-0500 SaO2% (BldA) [Mass fraction] 98 % [facility] 08-17-2023 05:34-0500 Systolic blood pressure 115 mm[Hg] [facility] 08-17-2023 04:11-0500 Body height 154.94 cm [facility] 08-17-2023 04:11-0500 Body mass index (BMI) [Ratio] 29.2 kg/m2 [facility] 08-17-2023 04:11-0500 Body temperature 97.2 [degF] [facility] 08-17-2023 04:11-0500 Body weight 70.2 kg [facility] 04-12-2023 14:58-0400 Body height 154.9 cm Lupe Calderón MD Work Phone: [facility] 04-12-2023 14:58-0400 Body temperature 98.29 [degF] Lupe Calderón MD Work Phone: [facility] 08-15-2023 14:58-0400 Body weight 68.04 kg Lupe Calderón MD Work Phone: [facility] 03-17-2023 11:03-0400 Body height 154.9 cm Thor Mayberry MD Work Phone: [facility] 03-17-2023 11:03-0400 Body weight 67.13 kg Thor Mayberry MD Work Phone: [facility] 03-17-2023 11:03-0400 Diastolic blood pressure 58 mm[Hg] Thor Mayberry MD Work Phone: [facility] 03-17-2023 11:03-0400 Heart rate 82 /min Thor Mayberry MD Work Phone: [facility] 03-17-2023 11:03-0400 SaO2% (BldA) [Mass fraction] 97 % Thor Mayberry MD Work Phone: [facility] 03-17-2023 11:03-0400 Systolic blood pressure 106 mm[Hg] Thor Mayberry MD Work Phone: [facility] 09-30-2022 08:26-0500 Body height 154.9 cm Thor Mayberry MD Work Phone: [facility] 09-30-2022 08:26-0500 Body weight 63.5 kg Thor Mayberry MD Work Phone: [facility] 09-30-2022 08:26-0500 Diastolic blood pressure 69 mm[Hg] Thor Mayberry MD Work Phone: [facility] 09-30-2022 08:26-0500 Heart rate 86 /min Thor Mayberry MD Work Phone: [facility] 09-30-2022 08:26-0500 SaO2% (BldA) [Mass fraction] 100 % Thor Mayberry MD Work Phone: [facility] 09-30-2022 08:26-0500 Systolic blood pressure 105 mm[Hg] Thor Mayberry MD Work Phone: [facility] 09-28-2022 15:00-0500 Body height 154.9 cm Dina Londono MD Work Phone: [facility] 09-28-2022 15:00-0500 Body mass index (BMI) [Ratio] 27.02 kg/m2 Dina Londono MD Work Phone: [facility] 09-28-2022 15:00-0500 Body temperature 98.8 [degF] Dina Londono MD Work Phone: [facility] 09-28-2022 15:00-0500 Body weight 64.86 kg Dina Londono MD Work Phone: [facility] 09-28-2022 15:00-0500 Diastolic blood pressure 80 mm[Hg] Dina Londono MD Work Phone: [facility] 09-28-2022 15:00-0500 Heart rate 87 /min Dina Londono MD Work Phone: [facility] 09-28-2022 15:00-0500 Respiratory rate 20 /min Dina Londono MD Work Phone: [facility] 09-28-2022 15:00-0500 SaO2% (BldA) [Mass fraction] 100 % Dina Londono MD Work Phone: [facility] 09-28-2022 15:00-0500 Systolic blood pressure 114 mm[Hg] Dina Londono MD Work Phone: [facility] 07-14-2022 08:04-0500 Body height 154.9 cm Hayes Heladio SILK WINDING MACHINE 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 Work Phone: [facility] 07-14-2022 08:04-0500 Body weight 63.5 kg Hayes Heladio SILK WINDING MACHINE 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 Work Phone: [facility] 07-14-2022 08:04-0500 Diastolic blood pressure 70 mm[Hg] Hayes Heladio SILK WINDING MACHINE 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 Work Phone: [facility] 07-14-2022 08:04-0500 Heart rate 90 /min Hayes Leija SILK WINDING MACHINE 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 Work Phone: [facility] 07-14-2022 08:04-0500 Systolic blood pressure 113 mm[Hg] Hayes Leija SILK WINDING MACHINE 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 Work Phone: [facility] 04-07-2019 17:30-0400 BP Diastolic 65 mm[Hg] [place] 04-07-2019 17:30-0400 BP Systolic 110 mm[Hg] [place] 04-07-2019 17:30-0400 Pulse (Heart Rate) 68 /min [place] 04-07-2019 17:30-0400 Pulse Oximetry 100 % [place] 04-07-2019 17:30-0400 Respiratory Rate 16 /min [facility] [place] 04-07-2019 15:26-0400 Body Temperature 98.8 [degF] [place] Encounters Encounter Date Encounter Type Care Provider Facility Start: 06-14-2025 ambulatory Jayleen Miranda Facility:[facility] Start: 06-11-2025 End: 06-11-2025 ambulatory THOR MAYBERRY Facility:[facility] Start: 06-03-2025 End: 06-03-2025 ambulatory JAYLEEN OLIVAS Facility:[facility] Start: 05-30-2025 End: 05-30-2025 ambulatory KAITY FLOREZ Facility:[facility] Start: 05-15-2025 End: 05-15-2025 Patient encounter procedure Juan J Daily SILK WINDING MACHINE OPERATOR.CNM Work Phone: OB/Gynecology Comment on above: Encounter for superv ision of high risk in first trimester, antepartum (HCC) (Primary Dx); History of pre-eclampsia; complication before (HCC); Diet controlled gestational diabetes mellitus (GDM) in third trimester (HCC); 34 weeks gestation of (HCC) Start: 05-15-2025 End: 05-15-2025 ambulatory SHARLA ARRIAGA Facility:[facility] Start: 05-10-2025 ambulatory THOR June ty:[facility] Start: 05-10-2025 End: 05-10-2025 Subsequent hospital visit by physician Rebecca Davidson Ob L&D Work Phone: OB/Gynecology Comment on above: Encounter for superv aditi of high risk in first trimester, antepartum (HCC) [O09.91] Start: 05-09-2025 End: 05-09-2025 ambulatory Juan J Daily SILK WINDING MACHINE OPERATORAmmyCNM Work Phone: OB/Gynecology Comment on above: One week of sugar te sting Start: 05-01-2025 End: 05-01-2025 Patient encounter procedure Whi Tech 1 Scientific Research Manager [facility] Comment on above: Diet controlled gest ational diabetes mellitus (GDM) in third trimester (HCC) 32 weeks gestation o f (HCC) (Primary Dx); Diet controlled gestational diabetes mellitus (GDM) in third trimester (HCC); History of pre-eclampsia Start: 05-01-2025 End: 05-01-2025 ambulatory SHARLA ARRIAGA Facility:[facility] Start: 04-30-2025 End: 04-30-2025 Telephone encounter Janina Butler MD Work Phone: OB/Gynecology Comment on above: Satya Carlson Start: 04-24-2025 End: 04-24-2025 Telephone encounter Al Lloyd MD Work Phone: OB/Gynecology Comment on above: Start: 04-18-2025 End: 04-18-2025 ambulatory Rebecca Davidson Ob L&D Work Phone: [facility] Comment on above: M-Power Time to Sche danye Start: 04-18-2025 End: 04-18-2025 E-mail encounter from caregiver Rebecca Davidson Ob L&D Work Phone: [facility] Start: 04-12-2025 End: 04-12-2025 Patient encounter procedure Radha Mcpherson MD Work Phone: OB/Gynecology Comment on above: Encounter for superv ision of normal first in third trimester (HCC) (Primary Dx); Breech presentation, single or unspecified fetus (HCC); Diet controlled gestational diabetes mellitus (GDM) in third trimester (HCC); 30 weeks gestation of (HCC) Start: 04-12-2025 End: 04-12-2025 ambulatory THOR MAYBERRY Facility:[facility] Start: 04-02-2025 End: 04-02-2025 ambulatory SHARLA ARRIAGA Facility:[facility] Start: 03-29-2025 End: 03-29-[address] Work Phone: Endocrinology Comment on above: Diet controlled gest ational diabetes mellitus (GDM) in third trimester ([facility]) Start: 03-29-2025 End: 03-29-2025 Telemedicine consultation with patient Yael Franky ACUÑA Work Phone: Endocrinology Start: 03-28-2025 End: 03-28-2025 Patient encounter procedure Sharla Arriaga APRN.PLANETARIUM SKY SHOW TECHNICIAN Work Phone: OB/Gynecology Comment on above: Encounter for superv ision of normal in second trimester, unspecified (HCC) (Primary Dx); 27 weeks gestation of (HCC); History of pre-eclampsia; History of anxiety; History of delivery; History of trauma; Adjustment disorder with mixed anxiety and depressed mood Start: 03-28-2025 End: 03-28-2025 ambulatory THOR MAYBERRY Facility:[facility] Start: 02-27-2025 End: 02-27-2025 Patient encounter procedure Juan J Daily APRN.CNM Work Phone: OB/Gynecology Comment on above: 23 weeks gestation o f (HCC) (Primary Dx); Screening for diabetes mellitus; Encounter for supervision of normal in second trimester, unspecified (HCC); History of pre-eclampsia; History of anxiety Start: 02-27-2025 End: 02-27-2025 ambulatory THOR MAYBERRY Facility:[facility] Start: 01-30-2025 End: 01-30-2025 Patient encounter procedure Whi Tech 1 Scientific Research Manager [facility] Comment on above: Encounter for anatomic survey (HCC) (Primary Dx); 19 weeks gestation of (HCC) 19 weeks gestation o f ([facility]) (Primary Dx); Supervision of high risk in second trimester ([facility]); Nausea and vomiting in ([facility]) Start: 01-30-2025 End: 01-30-2025 ambulatory SHARLA ARRIAGA Facility:[facility] Start: 01-02-2025 End: 01-02-2025 Patient encounter procedure Juan J Daily APRN.CNM Work Phone: OB/Gynecology Comment on above: Supervision of high risk in second trimester (HCC) (Primary Dx); History of pre-eclampsia; History of delivery; History of trauma; 15 weeks gestation of ([facility]); Nausea and vomiting during ([facility]) Start: 01-02-2025 End: 01-02-2025 ambulatory [facility] Facility:[facility] Start: 12-24-2024 End: 02-23-2025 Follow-up encounter Jayleen Olivas MD Work Phone: OB/Gynecology Start: 12-19-2024 End: 12-19-2024 ambulatory SHARLA ARRIAGA Facility:[facility] Start: 12-10-2024 End: 12-10-2024 ambulatory JAYLEEN OLIVAS Facility:[facility] Start: 12-10-2024 End: 12-10-2024 Patient encounter procedure Whi Tech 1 Scientific Research Manager [facility] Comment on above: Encounter for antena dana screening for malformation using ultrasound ([facility]) (Primary Dx); 12 weeks gestation of ([facility]) Supervision of high risk in second trimester ([facility]) (Primary Dx); History of pre-eclampsia; History of delivery; History of trauma; Nausea and vomiting in ([facility]) Start: 11-15-2024 End: 01-15-2025 Follow-up encounter Sharla Arriaga APRN.CNP Work Phone: OB/Gynecology Start: 11-15-2024 End: 11-15-2024 ambulatory THOR MAYBERRY Facility:[facility] Start: 11-15-2024 End: 11-15-2024 Patient encounter procedure Sharla Arriaga APRN.CNP Work Phone: OB/Gynecology Comment on above: Encounter for superv ision of high risk in first trimester, antepartum (Primary Dx); Nausea and vomiting during Start: 11-08-2024 End: 11-08-2024 Telephone encounter Kip Hammond MD Work Phone: [facility] Obstetrics and Gynecology [facility] Comment on above: Appointment Request (Called patient to verify Insurance once again and she stated that she had found another OB that sheis 100% covered and asked that I cancel her appointments ) Start: 11-07-2024 End: 11-07-2024 E-mail encounter from caregiver Rebecca Davidson Ob L&D Work Phone: [facility] Start: 11-07-2024 End: 11-07-2024 ambulatory THOR MAYBERRY Facility:[facility] Start: 11-07-2024 End: 11-07-2024 Patient encounter procedure Sharla Skysunshine BAIRES.PLANETARIUM SKY SHOW TECHNICIAN Work Phone: OB/Gynecology Comment on above: Encounter [...] Kip Hammond MD Work Phone: [facility] Obstetrics and Gynecology [place] Comment on above: Other (Insurance ([employer]) OON) Start: 10-25-2024 End: 10-25-2024 ambulatory ALEXHANG FARR [facility] Start: 10-25-2024 End: 10-25-2024 Office outpatient visit 15 minutes Alex Farr APRN - PLANETARIUM SKY SHOW TECHNICIAN Work Phone: [facility] Obstetrics and Gynecology - [place] Comment on above: with incon clusive viability, single or unspecified fetus (Primary Dx) Start: 10-01-2024 End: 10-01-2024 ambulatory THOR MAYBERRY Facility:[facility] Start: 10-01-2024 End: 10-01-2024 Patient encounter procedure Hayes Bangurabeatriz BAIRES.PLANETARIUM SKY SHOW TECHNICIAN Work Phone: [facility] Comment on above: Well adult exam (Gloria jessica Dx); Adjustment disorder with mixed anxiety and depressed mood; Vaping nicotine dependence, tobacco product; Other chronic sinusitis; Adhesive capsulitis of left shoulder; Right buttock pain Start: 10-01-2024 End: 10-01-2024 Patient encounter status Hayes Banguramel SILK WINDING MACHINE 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 Work Phone: [facility] Work Phone: Start: 01-03-2024 End: 01-03-2024 ambulatory THOR MAYBERRY [facility] Start: 01-03-2024 End: 01-03-2024 Patient encounter procedure Brooklyn Solomon PA-C Work Phone: [facility] Orthopedics Comment on above: Adhesive capsulitis of left shoulder (Primary Dx) Start: 09-27-2023 End: 09-27-2023 ambulatory LUPE CALDERÓN Facility:[facility] Start: 09-08-2023 End: 09-08-2023 ambulatory THOR MAYBERRY [facility] Start: 08-17-2023 Telephone encounter Thor Mayberry MD Work Phone: [facility] Comment on above: Received Outside [facility] Records ([facility] Emergency Department summary 08/17/2023 Left TMJ) Start: 08-17-2023 End: 08-17-2023 Emergency department patient visit [facility] Work Phone: Start: 07-26-2023 End: 07-26-2023 ambulatory THOR MAYBERRY [facility] Start: 07-19-2023 End: 07-19-2023 ambulatory THOR MAYBERRY Facility:[facility] Start: 07-19-2023 End: 07-19-2023 ambulatory Shital Winslow PTA Work Phone: [facility] Comment on above: Stiffness of left sh oulder joint (Primary Dx) Start: 07-14-2023 End: 07-14-2023 ambulatory THOR R GUERAK Facility:[facility] Start: 07-14-2023 End: 07-14-2023 ambulatory Shital Liaot 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 Work Phone: [facility] Comment on above: Stiffness of left sh oulder joint (Primary Dx) Start: 07-07-2023 End: 07-07-2023 ambulatory THOR R SHAWANDA Facility:[facility] Start: 07-07-2023 End: 07-07-2023 ambulatory Shital Caraballoblanet 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 Work Phone: [facility] Comment on above: Stiffness of left sh oulder joint (Primary Dx) Start: 06-30-2023 End: 06-30-2023 ambulatory THOR MAYBERRY Facility:[facility] Start: 06-23-2023 End: 06-23-2023 ambulatory THOR R SHAWANDA Facility:[facility] Start: 06-23-2023 End: 06-23-2023 ambulatory Shital Moralesanet 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 Work Phone: [facility] Comment on above: Stiffness of left sh oulder joint (Primary Dx) Start: 06-16-2023 End: 06-16-2023 ambulatory THOR R SHAWANDA Facility:[facility]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 Work Phone: [facility] 07-03-2005 Meningococcal, MCV4, unspecified conjugate formulation(groups A, C, Y and W-135) 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 Work Phone: [facility] Work Phone: 07-03-2005 tetanus toxoid, redu nithin diphtheria toxoid, and acellular pertussis vaccine, adsorbed 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 Work Phone: [facility] Work Phone: 03-19-2003 measles, mumps and rubella virus vaccine Hayes Leija APRN.[facility] Work Phone: [facility] Work Phone: Payers Date Payer Category Payer Self-pay [id number] 2024 Commercial Managed C are - HMO [id number] 2024 Private Health Insurance [id number] 2023 Unknown [id number] 2022 Unknown 2021 Unknown [id number] 2018 Private Health Insurance [id number] 2016 Unknown [employer] [address] xxxxxxxxxxxx 2016-Present [phone] [address] [place] [address] xxxxxxxxxxxx [id number] Unknown [id number] Unknown [id number] Social History Date Type Detail Facility Start: 05-16-2018 End: 04-07-2019 Tobacco smoking status IDIS Current every day smoker [facility] Start: 04-07-2019 End: 11-15-2024 Cigarettes smoked current (pack per day) - Reported [facility] Start: 04-07-2019 End: 11-15-2024 Alcohol intake No [facility] Start: 1990 Sex Assigned At Not on file [place], [place] Start: 02-02-2022 End: 11-05-2024 Tobacco smoking status IDIS Ex-smoker [facility] Start: 02-02-2022 End: 10-25-2024 Tobacco use and exposure User of smokeless tobacco [facility] Work Phone: Start: 02-02-2022 End: 10-25-2024 Alcohol intake Ex-drinker (finding) [facility] [employer] Phone: History of tobacco use Current smoker [facility] History of tobacco use Cigarette Smoker C [facility] Start: 07-14-2022 End: 05-01-2025 Alcohol intake Current non-drinker of alcohol (finding) [facility] Start: 07-12-2021 History SDOH Alcohol Frequency 3 [facility] Start: 07-12-2021 History SDOH Alcohol Std Drinks 1 [facility] Start: 07-12-2021 History SDOH Alcohol Binge 2 [facility] Start: 07-12-2021 History SDOH Social Connections Phone 5 [facility] Start: 07-12-2021 History SDOH Social Connections Living 7 [facility] Start: 07-14-2022 Tobacco Comment parents smoke vaping [facility] Start: 11-26-2020 End: 09-28-2022 Exposure to SARS-CoV-2 (event) Not sure [facility] Do you belong to any clubs or organizations such as episcopal groups, unions, fraternal or athletic groups, or school groups? No [facility] Are you now , , , , never or living with a partner? Never [facility] How often to you hav e a drink containing alcohol? 2-4 times a month [facility] How many standard drinks containing alcohol do you have on a typical day? 1 or 2 [facility] How often do you hav e 6 or more drinks on 1 occasion? Less than monthly [facility] Start: 07-30-2012 How hard is it for y ou to pay for the very basics like food, housing, medical care, and heating Not hard at all [facility] Do you feel stress - tense, restless, nervous, or anxious, or unable to sleep at night because your mind is troubled all the time - these days [OSQ] To some extent [facility] (I/We) worried adrianna er (my/our) food would run out before (I/we) got money to buy more. Never true [facility] Start: 04-12-2023 Alcohol Comment very occ [facility] Start: 08-17-2023 Tobacco smoking stat us IDIS Unknown if ever smoked [facility] Start: 1990 Sex Assigned At Female W [facility] Start: 05-16-2018 Tobacco use and exposure Smokeless tobacco non-user [facility] Start: 07-01-2010 Tobacco Comment parents smoke [facility] Are you now , , , , never or living with a partner? [facility] How often to you hav e a drink containing alcohol? Never [facility] Do you feel stress - tense, restless, nervous, or anxious, or unable to sleep at night because your mind is troubled all the time - these days [OSQ] Only a little [facility] Start: 10-25-2024 Tobacco Comment VAPE OCCASIONALLY [facility] Start: 03-29-2022 Sex Female (finding) [facility] Start: 10-24-2024 Gender identity Identifies as female gender (finding) [facility] Start: 11-05-2024 Tobacco use and exposure Former smokeless tobacco user [facility] Start: 11-05-2024 Education 17 [facility] Start: 11-05-2024 Tobacco Comment [facility] Start: 09-28-2024 [facility] Start: 11-05-2024 Sexual orientation Heterosexual (uri starkey) [facility] NEGATED: Highlighted rowStart: JINA History of tobacco use Passive smoker [facility] Medical Equipment Procedure Code Equipment Code Equipment Origin al Text Equipment Identifier Dates Use as directed to check glucose levels up to seven times daily. [id number] Start: 03-29-2025 Use as directed to check glucose levels up to seven times daily. [id number] Start: 03-29-2025 Goals Date Patient Goal Desired Activity /State Personal health goal Mental Status Date Assessment Result Facility 08-17-2023 Cognitive function Level Of Cons ciousness Awake;Alert;Appropriate [facility] Work Phone: Clinical Notes 06-18-2018 to 06-11-2025 Quick Notes - Juan J Daily APRN.[facility] - 05/15/2025 10:46 AM EDTPrenatal Quick Notes - Juan J Daily APRN.[facility] - 05/15/2025 10:46 AM EDTPatient InstructionsPatient Instructions Note Date & Type Note Facility 06-11-2025 Note HNO ID: [id number] Author: AL LLOYD MD Service: ? Author Type: Physician Type: Progress Notes Filed: 06/11/2025 15:12 Note Text: N/a [facility] 06-07-2025 Note HNO ID: [id number] Author: RENEE HANKINS, ? Service: ? Author Type: Patient Pediatric Registered Nurse Type: Progress Notes Filed: 06/07/2025 07:05 Note Text: POPULATION HEALTH NAVIGATION OUTREACH Action/FYI Added switch coupler to the chart through a note. No direct outreach was made. Reason for Outreach Medicaid OB/Peds Care Gaps due: N/A Patient Contacted: Unable or unnecessary to reach patient: switch coupler added Navigation Signature: Renee Hankins Population Health Navigator June 07, 2025 7:04 AM [facility] 06-07-2025 Note Patient Outreach (NE TNAV) MARIBEL MICHAELS ([id number]) 1990 F CHT Date Time Provider Department 06/07/25 RENEE HANKINS NETDANIELV During your visit today, we recorded the following information about you: Renee Hankins 06/07/2025 7:05 AM Signed POPULATION HEALTH NAVIGATION OUTREACH Action/FYI Added switch coupler to the chart through a note. No direct outreach was made. Reason for Outreach Medicaid OB/Peds Care Gaps due: N/A Patient Contacted: Unable or unnecessary to reach patient: switch coupler added Navigation Signature: Renee Hankins [facility] Navigator June 07, 2025 7:04 AM [...] Encounter Status:Closed by RENEE HANKINS on 06/07/25 [facility] 05-15-2025 Progress note Formatting of t his [...] C/S on 06/14/25 Juan J Daily APRN.CNM [facility] 05-15-2025 Miscellaneous Notes S: Maribel Michaels [...] J Daily APRN.CNM documented in this encounter [facility] 05-15-2025 Instructions Mary Ellen Lazcano MA - 05/15/2025 10:25 AM EDT SEQUENTIAL SCREENINGS The [facility] offers sequential screenings for women who [...] It will require an appointment with our spray technician. This is not an ultrasound performed [...] the above symptoms, contact our office at [phone] and ask to speak with a nurse. After hours, you can call doctors registry at [phone] OR call [facility] at [phone] and ask to have the doctor building construction contractor paged. If you consider this an emergency, dial [phone] or go to your nearest emergency department. NEED HELP? Are you dealing with a violent or abusive relationship? Are you a victim of rape or sexual assult? Call [facility] [place] [facility] 24 hour Crisis Hotline: 717.638.1139 or 588-949-8988. MANUAL Your Guide to a Healthy manual is now on-line. Visit [facility].org/HealthyPregna ncyGuide to download your free copy documented in this encounter [facility] 05-10-2025 Miscellaneous Notes Summary: M-Power Consult [employer] Insurance Associate Note Hospital Name: [place] Completed by: Uzma Torres RN Date: May 10, 2025 M-Power Resource Time: 2 hours Consult Code:A Consult Type: Phone Safety Concerns: No Maribel Michaels [id number] Preferred Name: Maribel OB Provider: Jayleen Olivas [...] first was born, it was a [place] and baby ended up in the NICU. When this baby is born, extra reassurance about his well being if vigorous will be appreciated. Concerns: None Feeding Plan Details: . Significant barriers to baby the first time. Maribel reports a severe lip tie. Safety/Support/Social Work: No needs documented in this encounter [facility] 05-10-2025 Progress note Summary: Neymar brcie Consult -[employer] Insurance Associate Note Hospital Name: [place] Completed by: Uzma Torres RN Date: May 10, 2025 Qbox.io Resource Time: 2 hours Consult Code:A Consult Type: Phone Safety Concerns: No Maribel Michaels [id number] Preferred Name: Maribel OB Provider: Jayleen Olivas [...] first was born, it was a [place] and baby ended up in the NICU. When this baby is born, extra reassurance about his well being if vigorous will be appreciated. Concerns: None Feeding Plan Details: . Significant barriers to baby the first time. Maribel reports a severe lip tie. Safety/Support/Social Work: No needs T [facility] 05-09-2025 Telephone encounter Note BG log reviewed and majority within goal thanks T [facility] Work Phone: 05-09-2025 Miscellaneous Notes BG log reviewed and majority within goal thanks 33w6d Next visit 05/15/25. Eliecer Lai RN documented in this encounter [facility] 05-09-2025 Telephone encounter Note 33w6d Next visit 05/15/25. Eliecer Lai RN [facility] 05-01-2025 Note Indication Evaluation of growth [...] 1 oz EFW by: Hadlock (HC-AC-FL) Extended Seed Analysis Laboratory Assistant 5.8 mm Extremities / Bony Struc [place] [...] to know sex: yes Performed By: Humaira Berg RDMS, RVT Read By: Rosa Maria Dangelo [...] for repeat growth Juan J Daily APRN.CNM [facility] 05-01-2025 Miscellaneous Notes S: Maribel Michaels is [...] J Daily APRN.CNM documented in this encounter [facility] 05-01-2025 Instructions Radha Thomson LPN - 05/01/2025 9:33 AM EDT SEQUENTIAL SCREENINGS The [facility] offers sequential screenings for women who [...] It will require an appointment with our spray technician. This is not an ultrasound performed [...] the above symptoms, contact our office at [phone] and ask to speak with a nurse. After hours, you can call doctors registry at [phone] OR call [facility] at [phone] and ask to have the doctor building construction contractor paged. If you consider this an emergency, dial 9-1- or go to your nearest emergency department. NEED HELP? Are you dealing with a violent or abusive relationship? Are you a victim of rape or sexual assult? Call [facility] 24 hour Crisis Hotline: 902.423.3315 or 187-403-3968. MANUAL Your Guide to a Healthy manual is now on-line. Visit [facility].org/HealthyPregna ncyGuide to download your free copy documented in this encounter [facility] 04-30-2025 Telephone encounter Note agree. thank you. Janina Butler MD [facility] Work Phone: 04-30-2025 Miscellaneous Notes agree. thank you. Janina Butler MD 32w4d Abdominal tightness started around 12pm today, intermittently, and only lasts for 20 seconds, then relaxes. Pressure lower abdomen. Pt states feels like [place] carlson contractions. Pt states she is middle [...] Ewelina Burkett, RN documented in this encounter [facility] 04-30-2025 Telephone encounter Note 32w4d Abdominal tightness started around 12pm today, intermittently, and only lasts for 20 seconds, then relaxes. Pressure lower abdomen. Pt states feels like [place] carlson contractions. Pt states she is middle [...] unit. Pt voiced understanding. Ewelina Burkett RN [facility] 04-24-2025 Telephone encounter Note Thank you. Radha Heredia RN [facility] 04-24-2025 Miscellaneous Notes Thank you. Radha Heredia RN yes 31w5d Received a surgery sheet that patient is needing a on 06/14 with KJ. She is back up call, but there is already a noon c/s. This is a surgery day. Can I add her on at 0715 with one of you? Thank you. Radha Heredia RN documented in this encounter [facility] 04-24-2025 Telephone encounter Note yes [facility] Work Phone: 04-24-2025 Telephone encounter Note 31w5d Received a surgery sheet that patient is needing a on 10/17 with KJ. She is back up call, but there is already a noon c/s. This is a surgery day. Can I add her on at 0715 with one of you? Thank you. Radha Heredia, RN [facility] 04-12-2025 Progress note Formatting of t [...] supervision of normal first in third trimester ([facility]) - ICD9: V22.0, ICD10: Z34.03 (primary diagnosis) 2. Diet controlled gestational diabetes mellitus (GDM) in third trimester ([facility]) - ICD9: 648.83, ICD10: O24.410 - URINE OB DIP B/O 3. 30 weeks gestation of ([facility]) - ICD9: V22.2, ICD10: Z3A.30 - URINE OB DIP B/O Radha Mcpherson MD [facility] 04-12-2025 Miscellaneous Notes S: Maribel Michaels [...] supervision of normal first in third trimester ([facility]) - ICD9: V22.0, ICD10: Z34.03 (primary diagnosis) 2. Diet controlled gestational diabetes mellitus (GDM) in third trimester ([facility]) - ICD9: 648.83, ICD10: O24.410 - URINE OB DIP B/O 3. 30 weeks gestation of ([facility]) - ICD9: V22.2, ICD10: Z3A.30 - URINE OB DIP B/O Radha Mcpherson MD documented in this encounter [facility] 04-12-2025 Instructions Duane Rocha LPN - 04/12/2025 1:50 PM EDT SEQUENTIAL SCREENINGS The [facility] offers sequential screenings for women who [...] It will require an appointment with our spray technician. This is not an ultrasound performed [...] the above symptoms, contact our office at [phone] and ask to speak with a nurse. After hours, you can call doctors registry at [phone] OR call [facility] at [phone] and ask to have the doctor building construction contractor paged. If you consider this an emergency, dial [phone]- or go to your nearest emergency department. NEED HELP? Are you dealing with a violent or abusive relationship? Are you a victim of rape or sexual assult? Call [facility] ([place]) 24 hour Crisis Hotline: 114.336.6031 or 220-323-6926. MANUAL Your Guide to a Healthy manual is now on-line. Visit [facility]org/HealthyPregna martínezyGuithien to download your free copy documented in this encounter [facility] 03-29-2025 History of Present illness Narrative DIABETES SELF-MANAGEMENT EDUCATION AND SUPPORT Location: [place] Type of visit: Virtual (with video) individual -- I have communicated my name and active licensure. The patient's identity and physical location were verified at the time of this visit. Either the patient or their legal rental representative has been informed of the risks and [...] GDM BG testing supplies ordered - will picking table worker later today, feels comfortable with checking BG, [...] Race/Ethnic Origin: White/ Does you culture or yarsani require any of the following: No cultural/sikhism practices affecting DM Do you have problems [...] initial encounter 10/05/2022 Nausea and vomiting during ([facility]) 11/07/2024 November 15, 2024 - Reviewed nausea [...] in joint of left shoulder 06/03/2023 Pre-eclampsia ([facility]) Premature ([facility]) 08/27/2013 35 weeks Stiffness of left shoulder joint 06/03/2023 Most recent A1C Lab Results Component Value Date HBA1C 4.1 12/19/2024 Physical Activity: Do 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 SIGNATURE: Yael Wilkins RD, [facility] PATIENT NAME: Maribel Michaels DATE: March 29, 2025 TIME: 1:00PM PAGER: documented in this encounter [facility] 03-29-2025 Note HNO ID: [id number] Author: YAEL WILKINS RD Service: ? Author Type: Registered Dietitian Type: Progress Notes Filed: 03/29/2025 13:50 Note Text: DIABETES SELF-MANAGEMENT EDUCATION AND SUPPORT Location: [place] Type of visit: Virtual (with video) individual -- I have communicated my name and active licensure. The patient's identity and physical location were verified at the time of this visit. Either the patient or their legal rental representative has been informed of the risks and [...] GDM BG testing supplies ordered - will picking table worker later today, feels comfortable with checking BG, has chec (more content not included)... [facility] 03-28-2025 Progress note Formatting of t his [...] supervision of normal in second trimester, unspecified ([facility]) - ICD9: V22.1, ICD10: Z34.92 (primary diagnosis) - Continue PNV and LDA 2. 27 weeks gestation of ([facility]) - ICD9: V22.2, ICD10: Z3A.27 - 1 hour GCT, CBC, and RPR today - Rh positive - Declines TDAP - LARC form reviewed and signed. Declines. - Depression screen negative - Opioid screen negative - plan form discussed and given to Maribel - Reviewed how to pre register through [facility] 3. History of pre-eclampsia - ICD9: V13.29, [...] weeks or sooner as needed. Sharla Arriaga APRN.PLANETARIUM SKY SHOW TECHNICIAN [facility] 03-28-2025 Miscellaneous Notes EH - S: [...] supervision of normal in second trimester, unspecified ([facility]) - ICD9: V22.1, ICD10: Z34.92 (primary diagnosis) - Continue PNV and LDA 2. 27 weeks gestation of ([facility]) - ICD9: V22.2, ICD10: Z3A.27 - 1 hour GCT, CBC, and RPR today - Rh positive - Declines TDAP - LARC form reviewed and signed. Declines. - Depression screen negative - Opioid screen negative - plan form discussed and given to Maribel - Reviewed how to pre register through [facility] 3. History of pre-eclampsia - ICD9: V13.29, [...] Sharla Arriaga APRN.KATHY documented in this encounter [facility] 03-28-2025 Instructions Sharla Arriaga APRN.CNP - 03/28/2025 7:48 AM EDT Images from the original note were not included. Psychotherapy Services at [facility] Call Behavioral Health Access Line at [phone] to schedule Individual psychotherapy In-person or virtual Wait time for first evaluation may be 12 or more weeks. Wait list spots may be available. Due to the high volume of patients this option is recommended if you are looking for short term acute symptom coping strategies. 4-980-6-UFXN1LCUF - [place] Maternal Mental Health Hotline If you are in suicidal crisis, please call or text 8-992-440-TALK ( ) or visit the National Suicide Prevention Lifeline website. mchb.mescalero service unita.gov If you are in crisis, call 911 or go to your nearest Emergency Department Here are some links for wonderful Providers here in the community and surrounding areas. Do not hesitate to contact their offices, many are offering virtual visits during this time. Psychotherapy Services outside of [facility] Support International Online Provider Directory https://Consolidated Energy.H3 Polímeros/ - can assist in finding providers in your area that might be more extensive then the list below. [facility] [place], [place] [address] [place] [address] [facility] [address] [place] [address] [facility] [address] [place] [address] [facility] [address] [place] [address] Mylene Weir MD [address] [place] [address] [facility] [address] [facility], [address] [place] [address] [facility] [address] [place] [address] [facility] [place] / [place] [phone]/ [phone] Renee Watson [address] [facility] [address] [facility] [phone] [facility] Counseling and Mediation [place] / [place] [phone] [facility] [address] [place] [address]/ [facility] [phone] MAURICE Varghese, CLC [facility] Workshops, telehealth and at home visits. [phone] [facility] counseling welda 20 locations [place], [place], [place], [place], [place], [place], [place], [facility], [place], [place], [place], [place], [place], [place], [facility], [place], [place] ,[facility], [place], [place],[facility], [facility] [place], [place], [facility], [place], [place] www.[facility].co [phone] Psychotherapy resources outside of [facility] are listed below [facility] CreditPoint Software Psychotherapy Web: https://www.Aircuity/ Support International Online Provider Directory https://SpinSnap/ [facility] https://Revegy/ v2 Ratings for Behavioral Health and Wellness Web: https://ABPathfinder/ Trunk Club for Effective Living Web: https://RAD TechnologieslivingGreencloud Technologies/ LifeStance Web: https://Rerecipe.H3 Polímeros/location/s terrell/[place]/ [facility] Web: https://www.Myvu Corporationsanta fe indian [facility].or / [facility] Web: https://WireOver.org/ Recovery Resources Mental health and substance abuse help Web: https://www.EdgeConneXs.ApplyMap & RESOURCES Support International Direct peer support and connection to professional resources Non-Emergency Helpline Phone: / Text: [phone] Web: https://www..net/ Online Provider Directory: https://SpinSnap/ Online Support Meetings: https://www..net/get-he lp/dfx-yevvzd-lcawipo-meetings/ [facility] Baby and Geriatrics Physician Services Web: https://www.Envision Pharmaceutical/ MotherToBaby Expert information on medication use during and Text: [phone] Web: https://Graphdive/ NATIONAL REGISTRY FOR PSYCHIATRIC MEDICATIONS Currently studying the safety of antidepressants, ADHD medications and atypical antipsychotics taken during TO PARTICIPATE CALL TOLL-FREE: Web: https://[facility].org/re search/pregnancyregistry/ Support Groups: [facility]- Follow on facebook Baby Bistro support group led by [facility] department Resilient Mamas - Support Group [facility].org The POEM support group [phone] Www.poemonline.org Follow on facebook - NANCY angela Online support meetings PSI https://www..net/get-he lp/vtn-xpvcwt-swycgrl-meetings/ [facility] mommy and me virtual support group 11:30-1pm Support for mothers and new babies and toddlers [place] childbirth education: Childbirth @[facility].org or call [phone] CRISIS: CRISIS HOTLINE [phone], 911 or go to the nearest . [facility] [phone] / [facility] [phone] https://www.[facility].org Crisis text line text the word HOME to [address]97[address] [facility] [address] [address] [facility] [address] www.MarginPoint Kaylah Strong clinical counseling [address] [place] [address] [address] www.AUPEO! [phone] Holding space psychotherapy Kaylah Castro UTILITY BILL COMPLAINTS INVESTIGATOR EXECUTIVE SALES MANAGER-S [address] [facility] www.CallFire [phone]/ Irlanda [phone] They all offer virtual. All work with trauma Support groups Online support meetings PSI https://www..net/get-he lp/cnl-jlwluf-vndjlui-meetings/ Here are the support groups they offer: [...] Tuesday of each month Location: Brandon Leal [facility] [address] [place] [address] Room 122 (library room) 7-8:00 p.m. When you enter the episcopal parking lot off of [address] the entrance door closest to our meeting room is on the front of the building toward the right. For those who are more comfortable with a virtual platform, POEM offers online support group options several days of the week. To register for an online group or to find out more about POEM, website at: https://SalesPredictaohio.org/get-help/city hospitalksar-mpgdqk-ttftof/poem-services/ offer a confidential helpline: private Facebook group is called NANCY Angela Here are the groups they offer: Traumatic childbirth resources: Http://pattch.org/ https://www.8villagessoumyaEdicy.H3 Polímeros/ Name Location (s) Phone # (s) Services Website [facility] Psychotherapy [address] [place], [place] - [phone]; [address] [phone] In-Person GROUPS INDIVIDUAL THERAPY MATERNAL-INFANT MENTAL HEALTH MEDICATION MANAGEMENT PLAY AND ART THERAPY TELETHERAPY https://www.Aircuity/s ervices/ Ja of Rufina GRAY? [address] [place], [place] [address] ? [address] [place], [place] [address] ? [place] [address]406? Grief Support Groups Individual Grief Counseling Spiritual Care Memorial Events https://river.[facility].org/grief-services [facility] [address] [place], [place] [address]; ; Email: [email or web address] Women's Mental Health; Couples Counseling; Trauma (EMDR); Stress Management; Mood and Anxiety Related Disorders- and much more https://www.AdaptiveMobile/ LifeStance Numerous as they have contract providers: access website to find specific providers near you Counseling including CBT and EMDR as well as many more modalities; Medication Management; Telehealth and In-Person https://OSOYOU.com/ Calnex Solutions Behavioral Health and Wellness [address] [place] [address]; [phone] Personal, Family and Group Therapy; Psychological Testing and Diagnosis; Medication Management; Life and Career Coaching; Psychoanalysis; Literacy Testing; Yoga and Meditation https://ABPathfinder/ Qiwi Post [facility] [address] [facility] [address], [place] [address] [address] ; [address] [place] [address]; Office # for both sites: Individual and Couples Counseling https://www.RELDATA, Inc./ paymentinsurance.html OCD & Anxiety [facility] [address] [facility], [place] [address]; Specialize in Cognitive-Behavioral Therapy (CBT) for the treatment of anxiety disorders across the lifespan. TELEHEALTH ONLY. https://ocdandanxietycenteroModaMi/faqs [facility] [address] [place], [address] [place] [address] [facility] [place], [address] [place] [address] [place], [address] [place] [address] [address] [place], [place], [id number] [address], [id number] [place] [address] [facility] [place], [address] [place] [address] [place], [place], [id number] Transportation Services To minimize patient barriers, [facility] provides transportation services to patients who qualify. If you are unable to get to your appointment at any of our facilities, please let us know. Need help now? Stop by one of our walk-in clinics to establish behavioral health care. Counseling Indvidual, Group, Couples and Family Counseling and EMDR. Medication Management Case Management benefits applications housing assistance Substance abuse treatment Medication assisted treatment https://www.[facility].or g/mental-health/ [facility] OFFICE AT [facility] [address] [place] [address] [facility] OFFICE [address] [place] [address] [facility] OFFICE [address] [place] [address] TO OFFICE (at [facility]) [address] [place] [address] [facility] SYRINGE EXCHANGE PROGRAM & HIV SCREENING [address] [place] [address] [place] SYRINGE EXCHANGE PROGRAM [address] [place] [address] Behavioral Health Urgent Care: [facility] Sites Counseling Indvidual and Group Medication Management Case Management benefits applications housing assistance Substance abuse treatment Medication assisted treatment Employment Services/ Job Training https://theCurex.Co.org/ Recovery Resources [address] [place], [place] [address]: P: [phone] [address] [facility], [address], [place], [place] [address] P: [phone] Our services include: Addiction Mental Health Treatment Assessment Psychiatry Medical Care Employment Housing Drug and Alcohol Prevention HIV/AIDS Prevention https://www.recres.org/ [facility] [place] [address] [place] [address] [place] [address] [place], [place] [address] [address] [place] [address] [place] [address] [facility] [address] [place] [address] [place] [address] [address] [place] [address] TMS Therapy/ Counseling Psychocological Testing for ADHD Medication Management In-Person/ Telemedicine https://www.Heetch.H3 Polímeros/joe ents-depression Memory & Psychological services [address] [place] [address], [place] [address] Neuropsychological Testing For ADHD https://www.memoryandpsych.com/ The [facility] - Main Office [facility] [place] [address] [address] Providing syev-fy-qcta and telehealth services. Adult Case Management Community Education and Prevention Employment Outpatient Treatment - Counseling & Psychotherapy Psychiatric Services http://www.[facility].org/ [facility] [place] [address] [place] [address] Gutierrez [facility]) [address] [place] [address] Virtual Appointments! Now offering safe and convenient virtual client appointments to anyone in [place]! Individual Therapy Couples/Relationship Therapy Trauma/EMDR Therapy Art Therapy Play Therapy Dryer Feeder Support: Parenting Skills, Parent Child Interaction Therapy, Parent Infant Interaction Therapy Meditation Dietitian/Information Coder Services Group Therapy Yoga https://www.Gatekeeper System. H3 Polímeros/ Lillian Lozano [phone] Private Practice: Telehealth Only Specializes in EMDR for Trauma None SEQUENTIAL SCREENINGS The [facility] offers sequential screenings for women who [...] It will require an appointment with our spray technician. This is not an ultrasound performed [...] the above symptoms, contact our office at [phone] and ask to speak with a nurse. After hours, you can call doctors registry at [phone] OR call [facility] at [phone] and ask to have the doctor building construction contractor paged. If you consider this an emergency, dial 04-29- or go to your nearest emergency department. NEED HELP? Are you dealing with a violent or abusive relationship? Are you a victim of rape or sexual assult? Call [facility] ([place]) 24 hour Crisis Hotline: 559.369.3351 or 695-296-8421. MANUAL Your Guide to a Healthy manual is now on-line. Visit [facility].org/HealthyPregna ncyGuide to download your free copy documented in this encounter [facility] 02-27-2025 Progress note Formatting of t [...] MARITZA with GCT Juan J Daily APRN.CNM [facility] 02-27-2025 Miscellaneous Notes S: Maribel Michaels [...] J Daily APRN.CNM documented in this encounter [facility] 01-30-2025 Progress note Formatting of t [...] sooner if needed Juan J Daily APRN.CNM [facility] 01-30-2025 Miscellaneous Notes S: Maribel Michaels [...] nontender ASSESSMENT/PLAN: 1. 19 weeks gestation of ([facility]) - ICD9: V22.2, ICD10: Z3A.19 (primary diagnosis) 2. Supervision of high risk in second trimester ([facility]) - ICD9: V23.9, ICD10: O09.92 3. Nausea and vomiting in ([facility]) - ICD9: 643.90, ICD10: O21.9 4. Heartburn in - Start Pepcid 20 mg PO BID - ONDANSETRON HCL 4 MG TABLET- Refill sent - Continue ASA/PNV daily - RTO 4 weeks or sooner if needed Juan J Daily APRN.CNM documented in this encounter [facility] 01-30-2025 Instructions Shelli Poole MA - 01/30/2025 8:59 AM EDT SEQUENTIAL SCREENINGS The [facility] offers sequential screenings for women who [...] It will require an appointment with our spray technician. This is not an ultrasound performed [...] the above symptoms, contact our office at [phone] and ask to speak with a nurse. After hours, you can call doctors registry at [phone] OR call [facility] at [phone] and ask to have the doctor building construction contractor paged. If you consider this an emergency, dial 9--1 or go to your nearest emergency department. NEED HELP? Are you dealing with a violent or abusive relationship? Are you a victim of rape or sexual assult? Call [facility] ([place]) 24 hour Crisis Hotline: 588.674.7895 or 799-553-7950. MANUAL Your Guide to a Healthy manual is now on-line. Visit [facility].org/HealthyPregna ncyGuide to download your free copy documented in this encounter [facility] 01-02-2025 Progress note Formatting of t [...] for anatomy US and MARITZA Daily APRN.CNM [facility] 01-02-2025 Miscellaneous Notes S: Maribel Michaels [...] MARITZA Daily APRN.CNM documented in this encounter [facility] 01-02-2025 Instructions Fortino Seymour MA - 01/02/2025 7:59 AM EDT SEQUENTIAL SCREENINGS The [facility] offers sequential screenings for women who [...] It will require an appointment with our spray technician. This is not an ultrasound performed [...] the above symptoms, contact our office at [phone] and ask to speak with a nurse. After hours, you can call doctors registry at [phone] OR call [facility] at [phone] and ask to have the doctor building construction contractor paged. If you consider this an emergency, dial 9-1-2 or go to your nearest emergency department. NEED HELP? Are you dealing with a violent or abusive relationship? Are you a victim of rape or sexual assult? Call [facility] ([place]) 24 hour Crisis Hotline: 597.570.2022 or 247-981-6190. MANUAL Your Guide to a Healthy manual is now on-line. Visit [facility].org/HealthyPregna ncyGuide to download your free copy documented in this encounter [facility] 12-10-2024 Progress note Formatting of t his note might be different from the original. Anatomy ultrasound reviewed. No abnormalities identified. Follow up as clinically indicated. Please place copy in ob chart. Janina Butler MD [facility] Work Phone: 12-10-2024 Miscellaneous Notes Anatomy ultrasound reviewed. No abnormalities identified. Follow up as clinically indicated. Please place copy in ob chart. Janina Butler MD Mailed letter documented in this encounter [facility] 12-10-2024 Progress note Formatting of t [...] wks New OB labs need drawn Orders: [id number] PLUS; Future History of pre-eclampsia Will start [...] as needed for nausea/vomiting. Jayleen Miranda MD [facility] 12-10-2024 Miscellaneous Notes DM-Pt doing well. [...] wks New OB labs need drawn Orders: [id number] PLUS; Future History of pre-eclampsia Will start [...] Jayleen Miranda MD documented in this encounter [facility] 12-10-2024 Instructions Cordelia Navarro MA - 12/10/2024 10:05 AM EDT SEQUENTIAL SCREENINGS The [facility] offers sequential screenings for women who [...] It will require an appointment with our spray technician. This is not an ultrasound performed [...] the above symptoms, contact our office at [phone] and ask to speak with a nurse. After hours, you can call doctors registry at [phone] OR call [facility] at [phone] and ask to have the doctor building construction contractor paged. If you consider this an emergency, dial 04-29- or go to your nearest emergency department. NEED HELP? Are you dealing with a violent or abusive relationship? Are you a victim of rape or sexual assult? Call [facility] ([place]) 24 hour Crisis Hotline: 412.691.2048 or 193-587-7941. MANUAL Your Guide to a Healthy manual is now on-line. Visit [facility].org/HealthyPregna ncyGuide to download your free copy documented in this encounter [facility] 11-20-2024 Telephone encounter Note Mailed letter [facility] 11-15-2024 Progress note Formatting of t [...] scheduled or sooner as needed. Sharla Arriaga APRN.PLANETARIUM SKY SHOW TECHNICIAN [facility] 11-15-2024 Miscellaneous Notes EH - S: [...] Sharla Arriaga APRN.CNP documented in this encounter [facility] 11-08-2024 Telephone encounter Note Patient appointment 11/09 cancelled Due to OON- Called patient and she stated that she has secured another OB that for sure takes Her insurance. [facility] 11-08-2024 Miscellaneous Notes Patient appointment 11/09 cancelled Due to OON- Called patient and she stated that she has secured another OB that for sure takes Her insurance. documented in this encounter [facility] 11-05-2024 Note HNO ID: [id number] Author: SHARLA ARRIAGA APRN.CNP Service: ? Author Type: Nurse Practitioner Type: Progress Notes Filed: 11/07/2024 11:24 Note Text: Rn Acute Dialysis offered: Patient declines. INITIAL OB ASSESSMENT HPI: [...] OR MODERATE CHLOE (more content not included)... [facility] 11-05-2024 History of Present illness Narrative Rn Acute Dialysis offered: Patient declines. INITIAL OB ASSESSMENT HPI: [...] discussed with the Patient or Patient's Authorized Barrel Inspector Tight. As applicable, any other physician, advance practice provider, medical student, or other health professional student that will be observing or involved in the sensitive examination for educational or training purposes was discussed with the Patient or Authorized Barrel Inspector Tight. The Patient or Authorized Barrel Inspector Tight has agreed to proceed with the sensitive [...] Your guide to a health and the Content Specialist. Reviewed midwifery and rail signal worker services that are available. Reviewed Qbox.io program. 2) Screening: Hemoglobin A1C: ordered Baby [...] (28-30 weeks): [] Consent [] Contraception [] Junior Loan Processor [] TeamBirth handout Third trimester (36-40 weeks): [...] Zoloft. Mental health resources provided. Sharla Arriaga APRN.PLANETARIUM SKY SHOW TECHNICIAN Follow up in 4 weeks or sooner prn. Plan for NT scan between 12w0d and 13w6d gestation. Sharla Arriaga APRN.PLANETARIUM SKY SHOW TECHNICIAN documented in this encounter [facility] 11-05-2024 Instructions Sharla Arriaga APRN.CNP - 11/05/2024 2:10 PM EDT Images from the original note were not included. Please select the following link to access the [facility] Your Guide to a Healthy . www.Ccf.org/healthypregnancyguide Please select the following link to access the [facility] Your Guide to a Healthy . www.Cc.org/healthypregnancyguide [facility] provides specialized care for patients whose [...] To speak with our team, please call [phone] or email MORNING SICKNESS IN by Camryn Greco M.D. for fitaborate As you may already know, morning sickness can often be more appropriately called evening sickness or fzbgc-oxutns-vt-the-day sickness. While there are the shante few, [...] medication, Doxylamine, is currently marketed as an mjuc-hmj-qcoyuxg sleeping pill. Ask your practitioner if creating a vitamin B6/Doxylamine combination with osky-ijn-bbgkdiv medications would be safe for you. Prescription [...] to help control my nausea and vomiting? Vputi has a helpful fact sheet on nausea in with recommendations. You can review it here: https://mLED.org/fact-she ets/jlgyla-ggshuorj-lavqlzots-nvp /pdf/. Also, eating small meals often, drinking [...] MotherToBaby fact sheet Paternal Exposures at https://mothertobaby.org/fact-she ets/uizewcuy-peauenlyh-rtdkgklpm/ pdf/. Psychotherapy Services at [facility] Call Behavioral Health Access Line at [phone] to schedule Individual psychotherapy In-person or virtual Wait time for first evaluation may be 12 or more weeks. Wait list spots may be available. Due to the high volume of patients this option is recommended if you are looking for short term acute symptom coping strategies. 6-202-2-AEBL7NJDA - National Maternal Mental Health Hotline If you are in suicidal crisis, please call or text 9-398-216-TALK ( ) or visit the National Suicide Prevention Lifeline website. mchb.mescalero service unita.gov If you are in crisis, call 911 or go to your nearest Emergency Department Here are some links for wonderful Providers here in the community and surrounding areas. Do not hesitate to contact their offices, many are offering virtual visits during this time. Psychotherapy Services outside of [facility] Support International Online Provider Directory https://SpinSnap/ - can assist in finding providers in your area that might be more extensive then the list below. [facility] [place] [address] [place] [address] [facility] [address] [place] [address] [facility] [address] [place] [address] [facility] [address] [place], [place] [address] Mylene Weir MD [address] [place] [address] [place] [facility] [address] [facility], [address] [place] [address] [facility] Psychiatric Services [address] [place] [address] [facility] Counseling Services [place] / [place] [phone]/ [phone] Renee [facility] [address] [facility] [address] [facility] [phone] Aves of Counseling and Mediation [place] / [place] [phone] Behavioral health services of [facility] [address] [place] [address]/ [facility] [phone] MAURICE Varghese, BRENNA Mckeon and Beyond Family Therapy Workshops, telehealth and at home visits. [phone] Humanistic counseling center 20 locations [place], [place], [place], [place], [place], [place], [place], [facility], [place], [place], [place], [place], [place], [place], [facility], [place], [place] ,[place], [place], [place],[facility], [place], [place], [facility], [place], [place] www.Grow the Planet.[facility] [phone] Psychotherapy resources outside of [facility] are listed below [facility] CreditPoint Software Psychotherapy Web: https://www.Aircuity/ Support International Online Provider Directory https://SpinSnap/ [facility] https://Revegy/ Partners for Behavioral Health and Wellness Web: https://ABPathfinder/ Kevstel Group Effective Living Web: https://Instapio/ LifeStance Web: https://OSOYOU.com/location/s terrell/iowa/ [facility] Web: https://howsimple.Myvu Corporationgreen cross hospitalIntensity Therapeutics.or / [facility] Web: https://WireOver.org/ Recovery Resources Mental health and substance abuse help Web: https://www.EdgeConneXs.org & RESOURCES Support International Direct peer support and connection to professional resources Non-Emergency Helpline Phone: / Text: [phone] Web: https://www..net/ Online Provider Directory: https://SpinSnap/ Online Support Meetings: https://www..net/get-he lp/cpr-meyxvf-nxhdqya-meetings/ FLORENTINO Baby and Geriatrics Physician Services Web: https://wwwChipolo/ Vputi Expert information on medication use during and Text: [phone] Web: https://Graphdive/ NATIONAL REGISTRY FOR PSYCHIATRIC MEDICATIONS Currently studying the safety of antidepressants, ADHD medications and atypical antipsychotics taken during TO PARTICIPATE CALL TOLL-FREE: Web: https://womensmentalhealth.org/re search/pregnancyregistry/ Support Groups: [facility]- Follow on facebook Baby Bistro support group led by [facility] department Resilient Mamas - Support Group [facility].org The POEM support group [phone] Www.poemonline.org Follow on facebook - NANCY gray chapter Online support meetings PSI https://www..net/get-he lp/ldn-ptverp-bcsmfgi-meetings/ [facility] mommy and me virtual support group 11:30-1pm Support for mothers and new babies and toddlers [place] childbirth education: Childbirth @cc.org or call [phone] CRISIS: CRISIS HOTLINE [phone], 911 or go to the nearest ER. [facility] [phone] / [facility] [phone] https://www.[facility].org Crisis text line text the word HOME to 219636 [employer] [facility] [address] [facility] [address] www.MarginPoint Kaylah Strong clinical counseling [address] [place] [address] [address] www.AUPEO! [phone] Holding space psychotherapy Kaylah Brynjazmyne [facility] EXECUTIVE SALES MANAGER-S [address] [facility] www.CallFire [phone]/ [place] [phone] They all offer virtual. All work with trauma Support groups Online support meetings PSI https://www..net/get-he lp/zmj-fgljfd-sttgzkl-meetings/ Here are the support groups they offer: [...] Tuesday of each month Location: Brandon Leal [facility] [address], [place] [address] Room 122 (library room) 7-8:00 p.m. When you enter the episcopal parking lot off of [address] the entrance door closest to our meeting room is on the front of the building toward the right. For those who are more comfortable with a virtual platform, Common Sense Media offers online support group options several days of the week. To register for an online group or to find out more about POEM, website at: https://mhaohio.org/get-help/city hospitalepev-clveef-rktujq/poem-services/ offer a confidential helpline: private Facebook group is called NANCY Angela Here are the groups they offer: Traumatic childbirth resources: Http://pattch.org/ https://www.Scil ProteinsnaziaBrainientsoumyaEdicy.H3 Polímeros/ Name Location (s) Phone # (s) Services Website [facility] Psychotherapy 0[address] [facility] [phone]; [address] [phone] In-Person GROUPS INDIVIDUAL THERAPY MATERNAL- MENTAL HEALTH MEDICATION MANAGEMENT PLAY AND ART THERAPY TELETHERAPY https://www.Aircuity/s ervices/ Dee GRAY? [address] [place] [address] ? [address] [place], [place] [address]181 ? LUU [address] [place] [address] [address]? Grief Support Groups Individual Grief Counseling Spiritual Care Memorial Events https://river.[facility].org/grief-services [facility] [address] [place], [place] [address]; ; Email: rosalee@Borro Women's Mental Health; Couples Counseling; Trauma (EMDR); Stress Management; Mood and Anxiety Related Disorders- and much more https://www.SourceDogg.com AppAssure Software.com/ LifeStance Numerous as they have contract providers: access website to find specific providers near you Counseling including CBT and EMDR as well as many more modalities; Medication Management; Telehealth and In-Person https://OSOYOU.com/ Calnex [employer] [facility] [address] [place], [place] [address]; [phone] Personal, Family and Group Therapy; Psychological Testing and Diagnosis; Medication Management; Life and Career Coaching; Psychoanalysis; Literacy Testing; Yoga and Meditation https://ABPathfinder/ Qiwi Post [facility] [address] [facility] [address], [place] [address] [address] ; [address] [facility], [address] [place] [address]; Office # for both sites: Individual and Couples Counseling https://www.RELDATA, Inc./ paymentinsurance.html OCD & Anxiety [facility] [address] [facility], [address], [place] [address]; Specialize in Cognitive-Behavioral Therapy (CBT) for the treatment of anxiety disorders across the lifespan. TELEHEALTH ONLY. https://ocdandanxietycenteroModaMi/faqs [facility] [address] [facility] [address] [place], [address] [place] [address] [facility] [place], [address] [place] [address] [place], [address] [place] [address] [place], [address], [address] [place] [address] [facility] [place], [address] [place] [address] [place], [address] Transportation Services To minimize patient barriers, [facility] provides transportation services to patients who qualify. If you are unable to get to your appointment at any of our facilities, please let us know. Need help now? Stop by one of our walk-in clinics to establish behavioral health care. Counseling Indvidual, Group, Couples and Family Counseling and EMDR. Medication Management Case Management benefits applications housing assistance Substance abuse treatment Medication assisted treatment https://www.st. lawrence health systeminc.or g/mental-health/ [facility] OFFICE AT [facility] [address] [place] [address] [facility] OFFICE [address] [place] [address] [facility] OFFICE [address] [place] [address] [facility] OFFICE (at [facility]) [address] [place] [address] [facility] SYRINGE EXCHANGE PROGRAM & HIV SCREENING [address] [place] [address] [place] SYRINGE EXCHANGE PROGRAM [address] [place] [address] Behavioral Health Urgent Care: [facility] Sites Counseling Indvidual and Group Medication Management Case Management benefits applications housing assistance Substance abuse treatment Medication assisted treatment Employment Services/ Job Training https://theCurex.Co.org/ Recovery Resources [address] [place], [place] [address]: P: [phone] [address] [facility], [address], [place] [address] P: [phone] Our services include: Addiction Mental Health Treatment Assessment Psychiatry Medical Care Employment Housing Drug and Alcohol Prevention HIV/AIDS Prevention https://www.EdgeConneXs.org/ [facility] [place] [address] [place] [address] [address] [place], [place] [address] [place] [address] [place] [address] [facility] [address] [place] [address] [place] [address] [address] [place] [address] TMS Therapy/ Counseling Psychocological Testing for ADHD Medication Management In-Person/ Telemedicine https://www.Heetch.H3 Polímeros/joe ents-depression Memory & Psychological services [address] [place] [address], [place] [address] Neuropsychological Testing For ADHD https://www.memoryandpsych.com/ [facility] Office [address] [place] [address] [address] [address] [place] [address] Providing anhh-nf-bjhv and telehealth services. Adult Case Management Community Education and Prevention Employment Outpatient Treatment - Counseling & Psychotherapy Psychiatric Services http://www.[facility].org/ [facility] [address] Mariya [place] [address] Gut[facility]) [address] [place] [address] Virtual Appointments! Now offering safe and convenient virtual client appointments to anyone in [place]! Individual Therapy Couples/Relationship Therapy Trauma/EMDR Therapy Art Therapy Play Therapy Dryer Feeder Support: Parenting Skills, Parent Child Interaction Therapy, Parent Infant Interaction Therapy Meditation Dietitian/Information Coder Services Group Therapy Yoga [email or web address] Lillian Lozano [phone] Private Practice: Telehealth Only Specializes in EMDR for Trauma None documented in this encounter [facility] 11-01-2024 Telephone encounter Note Called patient and she stated that [employer] is a 3rd republican payor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 [address]335[address] PCP - General Family Medicine 10/23/12 Hayes Yanes, DEQUAN.PLANETARIUM SKY SHOW TECHNICIAN [address] [place], [place] [address] Commercial Helicopter Pilot Internal Medicine 08/05/24 Letterer Relationship Specialty Start Date End Date Thor Mayberry MD [address] [place], [place] 454641 PCP - General Family Medicine 10/23/12 Hayes Yanes, DEQUAN.PLANETARIUM SKY SHOW TECHNICIAN [address] [place], [place] [address] Commercial Helicopter Pilot Internal Medicine 08/05/24 Letterer Relationship Specialty Start Date End Date Thor Mayberry MD [address] [place], [place] [address]27[address] PCP - General Family Medicine 10/23/12 Hayes Yanes, SILK WINDING MACHINE 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 [address] [place], [place] [address] Commercial Helicopter Pilot Internal Medicine 08/05/24 Source Comments (unrecognize d section and content) In the event this informatio n is protected by the Federal Confidentiality of Alcohol and Drug Abuse Patient Records regulations: The Federal rules restrict any use of the information to criminally investigate or prosecute any alcohol or drug abuse patient.[facility] HospitalIn the event this information is protected by the Federal Confidentiality of Alcohol and Drug Abuse Patient Records regulations: The Federal rules restrict any use of the information to criminally investigate or prosecute any alcohol or drug abuse patient.[facility] HospitalIn the event this information is protected by the Federal Confidentiality of Alcohol and Drug Abuse Patient Records regulations: The Federal rules restrict any use of the information to criminally investigate or prosecute any alcohol or drug abuse patient.[facility] HospitalIn the event this information is protected by the Federal Confidentiality of Alcohol and Drug Abuse Patient Records regulations: The Federal rules restrict any use of the information to criminally investigate or prosecute any alcohol or drug abuse patient.[facility] HospitalIn the event this information is protected by the Federal Confidentiality of Alcohol and Drug Abuse Patient Records regulations: The Federal rules restrict any use of the information to criminally investigate or prosecute any alcohol or drug abuse patient.[facility] HospitalIn the event this information is protected by the Federal Confidentiality of Alcohol and Drug Abuse Patient Records regulations: The Federal rules restrict any use of the information to criminally investigate or prosecute any alcohol or drug abuse patient.[facility] HospitalIn the event this information is protected by the Federal Confidentiality of Alcohol and Drug Abuse Patient Records regulations: The Federal rules restrict any use of the information to criminally investigate or prosecute any alcohol or drug abuse patient.[facility] HospitalIn the event this information is protected by the Federal Confidentiality of Alcohol and Drug Abuse Patient Records regulations: The Federal rules restrict any use of the information to criminally investigate or prosecute any alcohol or drug abuse patient.[facility] HospitalIn the event this information is protected by the Federal Confidentiality of Alcohol and Drug Abuse Patient Records regulations: The Federal rules restrict any use of the information to criminally investigate or prosecute any alcohol or drug abuse patient.[facility] HospitalIn the event this information is protected by the Federal Confidentiality of Alcohol and Drug Abuse Patient Records regulations: The Federal rules restrict any use of the information to criminally investigate or prosecute any alcohol or drug abuse patient.[facility] HospitalIn the event this information is protected by the Federal Confidentiality of Alcohol and Drug Abuse Patient Records regulations: The Federal rules restrict any use of the information to criminally investigate or prosecute any alcohol or drug abuse patient.[facility] HospitalIn the event this information is protected by the Federal Confidentiality of Alcohol and Drug Abuse Patient Records regulations: The Federal rules restrict any use of the information to criminally investigate or prosecute any alcohol or drug abuse patient.[facility] HospitalIn the event this information is protected by the Federal Confidentiality of Alcohol and Drug Abuse Patient Records regulations: The Federal rules restrict any use of the information to criminally investigate or prosecute any alcohol or drug abuse patient.[facility] HospitalIn the event this information is protected by the Federal Confidentiality of Alcohol and Drug Abuse Patient Records regulations: The Federal rules restrict any use of the information to criminally investigate or prosecute any alcohol or drug abuse patient.[facility] HospitalIn the event this information is protected by the Federal Confidentiality of Alcohol and Drug Abuse Patient Records regulations: The Federal rules restrict any use of the information to criminally investigate or prosecute any alcohol or drug abuse patient.[facility] HospitalIn the event this information is protected by the Federal Confidentiality of Alcohol and Drug Abuse Patient Records regulations: The Federal rules restrict any use of the information to criminally investigate or prosecute any alcohol or drug abuse patient.[facility] HospitalIn the event this information is protected by the Federal Confidentiality of Alcohol and Drug Abuse Patient Records regulations: The Federal rules restrict any use of the information to criminally investigate or prosecute any alcohol or drug abuse patient.[facility] HospitalIn the event this information is protected by the Federal Confidentiality of Alcohol and Drug Abuse Patient Records regulations: The Federal rules restrict any use of the information to criminally investigate or prosecute any alcohol or drug abuse patient.[facility] HospitalIn the event this information is protected by the Federal Confidentiality of Alcohol and Drug Abuse Patient Records regulations: The Federal rules restrict any use of the information to criminally investigate or prosecute any alcohol or drug abuse patient.[facility] HospitalIn the event this information is protected by the Federal Confidentiality of Alcohol and Drug Abuse Patient Records regulations: The Federal rules restrict any use of the information to criminally investigate or prosecute any alcohol or drug abuse patient.[facility] HospitalIn the event this information is protected by the Federal Confidentiality of Alcohol and Drug Abuse Patient Records regulations: The Federal rules restrict any use of the information to criminally investigate or prosecute any alcohol or drug abuse patient.[facility] HospitalIn the event this information is protected by the Federal Confidentiality of Alcohol and Drug Abuse Patient Records regulations: The Federal rules restrict any use of the information to criminally investigate or prosecute any alcohol or drug abuse patient.[facility] HospitalIn the event this information is protected by the Federal Confidentiality of Alcohol and Drug Abuse Patient Records regulations: The Federal rules restrict any use of the information to criminally investigate or prosecute any alcohol or drug abuse patient.[facility] HospitalIn the event this information is protected by the Federal Confidentiality of Alcohol and Drug Abuse Patient Records regulations: The Federal rules restrict any use of the information to criminally investigate or prosecute any alcohol or drug abuse patient.[facility] HospitalIn the event this information is protected by the Federal Confidentiality of Alcohol and Drug Abuse Patient Records regulations: The Federal rules restrict any use of the information to criminally investigate or prosecute any alcohol or drug abuse patient.[facility] HospitalIn the event this information is protected by the Federal Confidentiality of Alcohol and Drug Abuse Patient Records regulations: The Federal rules restrict any use of the information to criminally investigate or prosecute any alcohol or drug abuse patient.[facility] HospitalIn the event this information is protected by the Federal Confidentiality of Alcohol and Drug Abuse Patient Records regulations: The Federal rules restrict any use of the information to criminally investigate or prosecute any alcohol or drug abuse patient.[facility] HospitalIn the event this information is protected by the Federal Confidentiality of Alcohol and Drug Abuse Patient Records regulations: The Federal rules restrict any use of the information to criminally investigate or prosecute any alcohol or drug abuse patient.[facility] HospitalIn the event this information is protected by the Federal Confidentiality of Alcohol and Drug Abuse Patient Records regulations: The Federal rules restrict any use of the information to criminally investigate or prosecute any alcohol or drug abuse patient.[facility] HospitalIn the event this information is protected by the Federal Confidentiality of Alcohol and Drug Abuse Patient Records regulations: The Federal rules restrict any use of the information to criminally investigate or prosecute any alcohol or drug abuse patient.[facility] HospitalIn the event this information is protected by the Federal Confidentiality of Alcohol and Drug Abuse Patient Records regulations: The Federal rules restrict any use of the information to criminally investigate or prosecute any alcohol or drug abuse patient.[facility] HospitalIn the event this information is protected by the Federal Confidentiality of Alcohol and Drug Abuse Patient Records regulations: The Federal rules restrict any use of the information to criminally investigate or prosecute any alcohol or drug abuse patient.[facility] HospitalIn the event this information is protected by the Federal Confidentiality of Alcohol and Drug Abuse Patient Records regulations: The Federal rules restrict any use of the information to criminally investigate or prosecute any alcohol or drug abuse patient.[facility] HospitalIn the event this information is protected by the Federal Confidentiality of Alcohol and Drug Abuse Patient Records regulations: The Federal rules restrict any use of the information to criminally investigate or prosecute any alcohol or drug abuse patient.[facility] HospitalIn the event this information is protected by the Federal Confidentiality of Alcohol and Drug Abuse Patient Records regulations: The Federal rules restrict any use of the information to criminally investigate or prosecute any alcohol or drug abuse patient.[facility] HospitalIn the event this information is protected by the Federal Confidentiality of Alcohol and Drug Abuse Patient Records regulations: The Federal rules restrict any use of the information to criminally investigate or prosecute any alcohol or drug abuse patient.[facility] HospitalIn the event this information is protected by the Federal Confidentiality of Alcohol and Drug Abuse Patient Records regulations: The Federal rules restrict any use of the information to criminally investigate or prosecute any alcohol or drug abuse patient.[facility] HospitalIn the event this information is protected by the Federal Confidentiality of Alcohol and Drug Abuse Patient Records regulations: The Federal rules restrict any use of the information to criminally investigate or prosecute any alcohol or drug abuse patient.[facility] HospitalIn the event this information is protected by the Federal Confidentiality of Alcohol and Drug Abuse Patient Records regulations: The Federal rules restrict any use of the information to criminally investigate or prosecute any alcohol or drug abuse patient.[facility] HospitalIn the event this information is protected by the Federal Confidentiality of Alcohol and Drug Abuse Patient Records regulations: The Federal rules restrict any use of the information to criminally investigate or prosecute any alcohol or drug abuse patient.[facility] HospitalIn the event this information is protected by the Federal Confidentiality of Alcohol and Drug Abuse Patient Records regulations: The Federal rules restrict any use of the information to criminally investigate or prosecute any alcohol or drug abuse patient.[facility] HospitalIn the event this information is protected by the Federal Confidentiality of Alcohol and Drug Abuse Patient Records regulations: The Federal rules restrict any use of the information to criminally investigate or prosecute any alcohol or drug abuse patient.[facility] HospitalIn the event this information is protected by the Federal Confidentiality of Alcohol and Drug Abuse Patient Records regulations: The Federal rules restrict any use of the information to criminally investigate or prosecute any alcohol or drug abuse patient.[facility] HospitalIn the event this information is protected by the Federal Confidentiality of Alcohol and Drug Abuse Patient Records regulations: The Federal rules restrict any use of the information to criminally investigate or prosecute any alcohol or drug abuse patient.[facility] HospitalIn the event this information is protected by the Federal Confidentiality of Alcohol and Drug Abuse Patient Records regulations: The Federal rules restrict any use of the information to criminally investigate or prosecute any alcohol or drug abuse patient.[facility] HospitalIn the event this information is protected by the Federal Confidentiality of Alcohol and Drug Abuse Patient Records regulations: The Federal rules restrict any use of the information to criminally investigate or prosecute any alcohol or drug abuse patient.[facility] HospitalIn the event this information is protected by the Federal Confidentiality of Alcohol and Drug Abuse Patient Records regulations: The Federal rules restrict any use of the information to criminally investigate or prosecute any alcohol or drug abuse patient.[facility] HospitalIn the event this information is protected by the Federal Confidentiality of Alcohol and Drug Abuse Patient Records regulations: The Federal rules restrict any use of the information to criminally investigate or prosecute any alcohol or drug abuse patient.[facility] HospitalIn the event this information is protected by the Federal Confidentiality of Alcohol and Drug Abuse Patient Records regulations: The Federal rules restrict any use of the information to criminally investigate or prosecute any alcohol or drug abuse patient.[facility] HospitalIn the event this information is protected by the Federal Confidentiality of Alcohol and Drug Abuse Patient Records regulations: The Federal rules restrict any use of the information to criminally investigate or prosecute any alcohol or drug abuse patient.[facility] HospitalIn the event this information is protected by the Federal Confidentiality of Alcohol and Drug Abuse Patient Records regulations: The Federal rules restrict any use of the information to criminally investigate or prosecute any alcohol or drug abuse patient.[facility] HospitalIn the event this information is protected by the Federal Confidentiality of Alcohol and Drug Abuse Patient Records regulations: The Federal rules restrict any use of the information to criminally investigate or prosecute any alcohol or drug abuse patient.[facility] HospitalIn the event this information is protected by the Federal Confidentiality of Alcohol and Drug Abuse Patient Records regulations: The Federal rules restrict any use of the information to criminally investigate or prosecute any alcohol or drug abuse patient.[facility] HospitalIn the event this information is protected by the Federal Confidentiality of Alcohol and Drug Abuse Patient Records regulations: The Federal rules restrict any use of the information to criminally investigate or prosecute any alcohol or drug abuse patient.[facility] HospitalIn the event this information is protected by the Federal Confidentiality of Alcohol and Drug Abuse Patient Records regulations: The Federal rules restrict any use of the information to criminally investigate or prosecute any alcohol or drug abuse patient.[facility] Goals (unrecognized section and content) Goals [...] BE BASED ON THE PRIMARY CLINICAL RECORDS. [facility] [employer] [facility]. provides no warranty or guarantee of the accuracy or completeness of information in this document.
[2025-06-14 05:58] LABS: Hematocrit 34.3 % (37-47); Hemoglobin 11.8 g/dL (12.0-15.0); Immature Granulocytes Count 0.040 X10^3/uL (0.0-0.0); Mean Corp Hgb Conc 34.4 g/dL (32-36); Mean Corpuscular Volume 89.8 fL (81-99); Mean Platelet Vol. 12.4 fl (6.2-12.0); NRBC Flagged by Analyzer 0 % (0-5); Platelet Count 185 K/mm3 (150-450); RBC Distribution Width CV 12.6 % (11.6-14.6); RBC Distribution Width SD 41.2 fl (35.1-43.9); Red Blood Count 3.82 M/mm3 (4.2-5.4); White Blood Count 7.9 K/mm3 (4.4-11.0)
[2025-06-14] MEDS: Lactated Ringers 1,000 ML 150 ML IV (06:13)
[2025-06-14 06:53] LABS: Syphilis Antibodies Nonreactive (Nonreactive)
[2025-06-14] MEDS: Lactated Ringers 1,000 ML 1000 ML IV (07:14)
[2025-06-14] MEDS: Cefazolin 1 GM/5 ML Vial 2 GM IV (07:14)
--- NOTE | 2025-06-14 07:39 | FALS_PTH ---
PATIENT: RENEE MARIA LOC: [facility] U#:[id number] AGE/SX: 35/F ROOM: WP004 RE06/14/[address]: Dr. Janet Miranda, MDDOB: 1990 BED: 1 DIS: 06/15/2025 SPEC #: [id number] RECD: 06/14/25 09:20 STATUS: HAI CESAR #: [id number] SINDY: 06/14/25 07:[address]: Janet Miranda DEPT: SURGICAL PATHOLOGY RECD BY: Fortino Kaur ENTERED: 06/14/25 10:37 SP TYPE: FALL TUBES OTHR DR: Dr. Percy Rhodes MD Tissues: A - Fallopian tube Procedures: Surgery Specimen Level II HEADER OPERATION: Tubal ligation PRE-OP DIAGNOSIS: Sterilization TISSUE SUBMITTED: A- Bilateral fallopian tubes *suture in left tube* MICROSCOPIC DIAGNOSIS A. Bilateral fallopian tubes, resection: * No specific pathologic change (complete luminal cross-section confirmed), left (A1). * No specific pathologic change (complete luminal cross-section confirmed), right (A2). MICROSCOPIC DESCRIPTION Slides are reviewed. GROSS DESCRIPTION A. Received in formalin labeled with the patient's name and date of . Designated as suture on the left are 2 purple-gould red fimbriated fallopian tubes. There is a suture designated as left and they measure 7.1 x 0.7 cm (left) and 5.9 x 0.4 cm (right). Multiple paratubal cyst are identified on both fallopian tubes, <0.1 cm to 0.2 cm. Check Airman sections are submitted in 2 cassettes as follows: A1: Left fallopian tubeA2: Right fallopian tube ND 06/14/2025 CPT:12858b8
--- NOTE | 2025-06-14 08:06 | OP.PCM_ITS ---
Maternal Data Information Final OLEG Source: <20 weeks Gestational age: 40 Operative Report (OB) Procedure Details Date of Procedure: 06/14/25 Procedure Start Time: 07:36 Procedure Stop Time: 08:09 Time of Delivery: 07:39 Pre-Operative Diagnosis: Desires elective sterilization and Other Other Pre- Operative diagnosis: elective primary cs for history of trauma Post-Operative Diagnosis: Same as Pre-operative diagnosis Classification: Scheduled Type of Anesthesia: Spinal Antibiotic Given: Ancef 2 grams IV x1 Drain: Colin to straight drain Estimated Blood Loss: 600 Fluids Replaced: 600 Findings Description of surgery: After informed consent was obtained the patient was taken the operating room she was given spinal anesthesia. She was then placed in the supine position. She was prepped and draped in the normal sterile fashion. Anesthesia was found to be adequate. At this time a Pfannenstiel skin incision was made with a knife was carried down to the underlying layer of the fascia. The fascial incision was then extended laterally using gentle opposing traction. Attention was then turned to the superior aspect of the fascial edge was grasped with 2 straight Hedy clamps tented up and the rectus muscle dissected off sharply Rectus muscles were then in the midline bluntly and peritoneum was entered bluntly. Gentle opposing traction was placed. At this time the vesicouterine peritoneum was identified. Scalpel was used to make a uterine incision in a low transverse fashion. The uterus was then entered bluntly gentle opposing traction was placed to extend this incision. Membranes were ruptured clear. Infant's head was brought to the uterine incision was delivered atraumatically. was vigorous at delivery and delayed cord clamping performed. Cord was clamped and cut was handed to the waiting nursery team. The Placenta was removed from the uterus. The uterus was then removed from the abdominal cavity. The uterus was cleared of all clots and debris using a lap. At this time the uterine incision was reapproximated using #1 Vicryl in a running locked fashion. Hemostasis was appreciated. Posterior cul-de-sac was then cleared of all clots and debris. Uterus was placed back in the abdominal cavity. The bilateral tubes were identified grasped with Justino right side first. The LigaSure was used to coagulate and ligate along the mesosalpinx. The tube was removed completely with fimbria. This was repeated on the left side. Excellent hemostasis was appreciated. Gutters were cleared of all clots and debris. Uterine incision was reevaluated and noted to be of good hemostasis. Hemoblast placed over the uterine incision. At this time the peritoneum was grasped with Kellys reapproximated using #2 Vicryl suture in a running fashion. Fascia was then reapproximated using #1 Vicryl in a running fashion. Subcu layer was irrigated with NS, reapproximated with #2 0 plain gut suture in an interrupted fashion. Hemoblast placed in the subcu layer. Subcu layer was closed using 4-0 Monocrylin a subcu fashion. Dry sterile dressing was applied. Instrument lap needle count correct ?2. Anticipated normal postoperative course. Surgical findings: Normal tubes and ovaries bilateral Presentation: Vertex Amniotic Membrane Rupture Type: Artificial Amniotic Fluid Description: Clear Placental Delivery Description: Expressed Placenta Disposition: [facility] Specimen collected: Yes Description of specimen(s) removed: Bilateral fallopian tubes Cord Vessel Description: 3 Vessels Cord Entanglement: None A gender: Male (1 minute): 8 (5 minute): 9 Delayed Cord Clamping: Yes Christian Counselor tow bar driver: Yes Facility Attendant: Benoit Ferguson Tasks completed by workers compensation claims assistant: Closing, Dissecting tissue and Retracting Additional oral surgery assistant?: No Complications Complications: No
[2025-06-14] MEDS: Oxytocin 15 Units/NS 250ml 15 UNITS/250 ML IV.SOLN 83 UNITS IV (08:30)
[2025-06-14] MEDS: Ketorolac 30 MG/ML Syringe IV ×3 (09:08→20:29)
[2025-06-14] MEDS: Senna/Docusate Sodium 1 Tablet PO (09:08)
--- NOTE | 2025-06-14 09:43 | NURSING ---
0930-noted dime size clot w fundal assessment
--- NOTE | 2025-06-14 11:50 | NURSING ---
1130-noted quarter size clot, fundus firm u-1
[2025-06-14] MEDS: LACTATED RINGERS 500 ML 999 ML IV (12:25)
[2025-06-14] MEDS: Lactated Ringers 1,000 ML 100 ML IV (12:54)
[2025-06-14 13:06] LABS: AST(SGOT) 21 U/L (<=31); Alanine Aminotransfer ALT/SGPT 9 U/L (<=34); Albumin, Serum 3.2 g/dL (3.5-5.0); Alkaline Phosphatase 218 U/L (35-104); Anion Gap 13 (5-15); BUN 9 mg/dL (4-19); BUN/Creat Ratio 15.5 RATIO (10-20); Calcium,Total 8.7 mg/dL (7.6-11.0); Carbon Dioxide 19.3 mmol/L (21.0-32.0); Chloride 100 mmol/L (98-108); Estimated Creatinine Clearance 130.64 ml/min (50-250); Globulin 2.8 g/dL (2.2-4.2); Glucose 170 mg/dL (70-99); Potassium 3.9 mmol/L (3.3-5.1)
[2025-06-14 13:40] LABS: Creatinine, Urine (random) 108.00 mg/dL (28.00-217.00); Protein, Urine (Random) 41.6 mg/dL (0.0-12.0); Protein:Creat Ratio 385 mg/g CRE (0-200)
[2025-06-14 13:46] LABS: Uric Acid 4.1 mg/dL (2.6-6.0)
[2025-06-14] MEDS: 0.9% Saline Lock 10 ML Syringe IV ×2 (18:06→21:08)
[2025-06-15 01:30] VITALS: BP 118/78; PULSE 76; RESP 16; TEMP 36.4; O2SAT 98
[2025-06-15] MEDS: Ketorolac 30 MG/ML Syringe IV (02:17)
[2025-06-15 04:01] VITALS: BP 122/80; PULSE 81; RESP 16; TEMP 36.6; O2SAT 97
[2025-06-15 08:29] VITALS: BP 113/71; PULSE 80; RESP 16; TEMP 36.3; O2SAT 99
[2025-06-15 08:31] LABS: Hematocrit 26.6 % (37-47); Hemoglobin 9.3 g/dL (12.0-15.0); Mean Corp Hgb Conc 35.0 g/dL (32-36); Mean Corpuscular Volume 89.9 fL (81-99); Mean Platelet Vol. 12.0 fl (6.2-12.0); Platelet Count 180 K/mm3 (150-450); RBC Distribution Width CV 12.8 % (11.6-14.6); RBC Distribution Width SD 41.0 fl (35.1-43.9); Red Blood Count 2.96 M/mm3 (4.2-5.4); White Blood Count 10.5 K/mm3 (4.4-11.0)
--- NOTE | 2025-06-15 11:34 | PN.OBGYN_ITS ---
Subjective Subjective Doing well per patient and nursing staff. Ambulating and taking PO without difficulty. Voiding and passing flatus. Pain controlled. , services for assistance. Supplementation with formula due to hypoglycemia. Denies headache, visual changes, chest pain, shortness of breath, leg pain or increased bleeding. Lochia normal. Objective Data Objective Data Vital Signs: Vital Signs Temp Pulse Resp BP Pulse Ox O2 Del Method 97.3 F L 80 16 113/71 99 Room Air 06/15/25 08:29 06/15/25 08:29 06/15/25 08:29 06/15/25 08:29 06/15/25 08:29 06/15/25 08:29 Oxygen Delivery Method Room Air Weight: 192 lb 14.472 oz Body Mass Index (BMI) 36.4 Intake & Output: Intake and Output for Last 24 Hours 06/13/25 06/14/25 06/15/25 23:59 23:59 23:59 Intake Total 5012.85 / 5012.85 Output Total 1611 / 1611 500 / 500 Balance 3401.85 / 3401.85 -500 / -500 Lab / Micro Data 06/15/25 08:08 06/14/25 12:25 Labs: Laboratory Results - last 24 hr 06/14/25 12:25: Sodium 132 L, Potassium 3.9, Chloride 100, Carbon Dioxide 19.3 L , Anion Gap 13, BUN 9, Creatinine 0.61 L, Estim Creat Clear Calc 130.64, Est GFR (MDRD) Non-Af 120, BUN/Creatinine Ratio 15.5, Glucose 170 H, Uric Acid 4.1, Calcium 8.7, Total Bilirubin 0.16, AST 21, ALT 9, Alkaline Phosphatase 218 H, Total Protein 6.0, Albumin 3.2 L, Globulin 2.8, Albumin/Globulin Ratio 1.1 06/14/25 12:45: U Random Total Protein 41.6 H, Urine Creatinine 108.00, P rotein/Creatinin Ratio 385 H 06/14/25 15:22: POC Glucose 90 06/15/25 06:09: POC Glucose 85 06/15/25 08:08: WBC 10.5, RBC 2.96 L, Hgb 9.3 L, Hct 26.6 L, MCV 89.9, MCH 31.4, MCHC 35.0, RDW Std Deviation 41.0, RDW Coeff of Patric 12.8, Plt Count 180, MPV 12.0 ROS Constitutional Constitutional: Reports systems reviewed and no addt'l complaints, except as documented; Denies headache(s) Eyes Eyes: Denies acute decrease in peripheral vision, blurry vision or change in vision ENT HEENT: Reports systems reviewed and no addt'l complaints, except as documented Cardiovascular Cardiovascular: Denies chest pain or dizziness Respiratory/Chest Respiratory/Chest: Denies cough, dyspnea, dyspnea on exertion, shortness of breath at rest or shortness of breath with exertion Gastrointestinal Gastrointestinal: Denies abdominal pain, diarrhea, nausea or vomiting Genitourinary Genitourinary: Denies abdominal discomfort Musculoskeletal Musculoskeletal: Denies limited range of motion Integumentary Integumentary: Reports systems reviewed and no addt'l complaints, except as documented Neurologic Neurologic: Reports systems reviewed and no addt'l complaints, except as documented Psychiatric Psychiatric: Reports systems reviewed and no addt'l complaints, except as documented Endocrine Endocrinology: Reports systems reviewed and no addt'l complaints, except as documented Hematologic/Lymphatic Hematologic/Lymphatic: Reports systems reviewed and no addt'l complaints, except as documented Allergic/Immunologic Allergic/Immunologic: Reports systems reviewed and no addt'l complaints, except as documented Physical Exam Const alert and oriented x3 General Appearance: cooperative Orientation / Consciousness: awake, oriented to person, oriented to place and oriented to time Exam Limitations: no limitations HEENT normocephalic Head and Scalp: normal to inspection, normocephalic and atraumatic Face and Sinus: normal facial exam Eyes General Eye: normal appearance of both eyes Neck full ROM Chest Chest: symmetrical chest wall rise Resp normal respiratory effort and normal air movement Auscultation: clear to auscultation bilaterally Cardio regular rate, regular rhythm, S1 normal heart sound, S2 normal heart sound, no murmurs, no rub, no gallops and no clicks GI normal to inspection, nondistended, normoactive bowel sounds and non-tender GI Narrative: Dressing dry and intact. Fundus firm 2 below U appearance of the vagina normal Bladder / Kidney Exam: no CVA tenderness Back/Spine normal ROM Extremity normal to inspection and full ROM Skin no rashes or lesions noted Neuro oriented x3, CN's II-XII intact bilaterally and moves all extremities Sensorium / Orientation: awake, alert and oriented to person Motor Exam: clonus absent Deep Tendon Reflexes: Rt Patellar (L4): 2+ and Lt Patellar (L4): 2+ Assessment & Plan (1) S/P repeat low transverse : (2) Acute blood loss anemia: PLAN: Plan 1) Routine care, POD#1 2) Vitals signs stable 3) Pain controlled 4) , services PRN 5) D/C home per patient request 6) Follow up in 2 weeks and 6 weeks
--- NOTE | 2025-06-15 12:18 | DS.PCM_ITS ---
Providers Date of Admission: 06/14/25 Primary Care Physician: Dr. Percy Rhodes MD Reason For Visit: PRIMARY C SECTION Diagnosis Discharge Diagnosis (1) Acute blood loss anemia: Status: Acute Code(s): D62 - Acute posthemorrhagic anemia (2) S/P primary low transverse : Status: Acute Code(s): Z98.891 - History of uterine scar from previous surgery (3) Status post bilateral salpingectomy: Status: Acute Code(s): Z90.79 - Acquired absence of other genital organ(s) Plan 1) Routine care, POD#1 2) Vitals signs stable 3) Pain controlled 4) , services PRN 5) D/C home per patient request 6) Follow up in 2 weeks and 6 weeks Medications at Discharge Home Medications vit no.95-ferrous fumarate 28 mg-folic acid 800 mcg tablet () 1 tab PO DAILY 06/14/25 acetaminophen 500 mg tablet 1,000 mg (2 x 500 mg) PO Q6 #0 tabs 06/15/25 ferrous sulfate 325 mg (65 mg iron) tablet (FeroSul) 325 mg PO QODAY #30 tabs 06/15/25 ibuprofen 600 mg tablet 600 mg PO Q6H #0 tabs 06/15/25 oxycodone 5 mg tablet 5 mg PO Q6H 7 days #10 tabs 06/15/25 sennosides 8.6 mg-docusate sodium 50 mg tablet (Stimulant Laxative Plus) 1 - 2 tab PO DAILY #30 tabs 06/15/25 Hospital Course Summary of Care Provided Minutes Spent on Discharge: 15 Hospital Course: Presented on 06/14 for primary elective section with bilateral salpingectomy. Acute blood loss anemia. course uncomplicated. D/C home on postoperative day #1 Weight / BMI Weight Weight: 192 lb 14.472 oz Body Mass Index (BMI) 36.4 ABG / Lab / Microbiology Data 06/15/25 08:08 06/14/25 12:25 Laboratory: Laboratory Results - last 24 hr 06/14/25 12:25: Sodium 132 L, Potassium 3.9, Chloride 100, Carbon Dioxide 19.3 L , Anion Gap 13, BUN 9, Creatinine 0.61 L, Estim Creat Clear Calc 130.64, Est GFR (MDRD) Non-Af 120, BUN/Creatinine Ratio 15.5, Glucose 170 H, Uric Acid 4.1, Calcium 8.7, Total Bilirubin 0.16, AST 21, ALT 9, Alkaline Phosphatase 218 H, Total Protein 6.0, Albumin 3.2 L, Globulin 2.8, Albumin/Globulin Ratio 1.1 06/14/25 12:45: U Random Total Protein 41.6 H, Urine Creatinine 108.00, P rotein/Creatinin Ratio 385 H 06/14/25 15:22: POC Glucose 90 06/15/25 06:09: POC Glucose 85 06/15/25 08:08: WBC 10.5, RBC 2.96 L, Hgb 9.3 L, Hct 26.6 L, MCV 89.9, MCH 31.4, MCHC 35.0, RDW Std Deviation 41.0, RDW Coeff of Patric 12.8, Plt Count 180, MPV 12.0 D/C Instructions May resume sexual activity in: 6 weeks Weight Bearing Status: Full weight bearing Lifting Restricted to (Lbs): 20 Call your doctor if your incision/area has: Continuous Slow Oozing, Sudden Increased Bleeding, Increased Pain/ Swelling, Increased Redness, Foul Smelling Discharge and Swelling at the incision site Call your doctor if you observe: Fever of 101 or Higher, Inability to urinate, Inability to have a bowel movement, Using more than 1 pad per hour, Shortness of breath, Dizziness, Fainting spells, Chest pain, Increased palpitations (irregular heartbeat), Calf discomfort and Uncontrolled pain Suture Line Care: Avoid Pulling/Pushing Remove Dressing in: 1 week Cleanse incision/area with: Keep Dressing Clean & Dry DC O2, CPAP, BIPAP Needs Home O2 Discharge instructions: No Meaningful Use Info Meaningful Use Meaningful Use Diagnoses (Choose all that apply): None applicable Discharge Plan Admission Admit Date/Time: 06/14/25 05:31 Primary Reason for Your Visit: Section Attending Provider: Janet Miranda Primary Care Provider: Percy Rhodes Discharge Orders/Prescriptions Prescriptions: New acetaminophen 500 mg Tablet 1,000 mg PO Q6 Qty: 0 0RF ferrous sulfate [FeroSul] 325 mg (65 mg iron) Tablet 325 mg PO QODAY Qty: 30 0RF ibuprofen 600 mg Tablet 600 mg PO Q6H Qty: 0 0RF oxycodone 5 mg Tablet 5 mg PO Q6H 7 Days Qty: 10 0RF sennosides-docusate sodium [Stimulant Laxative Plus] 8.6-50 mg Tablet 1 - 2 tab PO DAILY Qty: 30 0RF Continued PNV no.95-ferrous fumarate-FA [] 28 mg iron- 800 mcg tablet 1 tab PO DAILY Discontinued Nighttime Sleep-Aid (doxylamn) 25 mg tablet 25 mg PO QHS PRN (Reason: pregn) Referrals / Follow Up: Percy Rhodes MD [Primary Care Provider, Family Practice] Disposition Disposition (needs filled in before D/C Order can be placed): Home, Self Care
[2025-06-15] MEDS: Senna/Docusate Sodium 1 Tablet PO (12:36)
--- NOTE | 2025-06-15 14:17 | CASEMGMT ---
Social Work Assessment Labor and Delivery Unit Patient Address: [facility] [place] [address] Phone number: [phone] Date of Referral: 06/14/25 Time of Referral: 23:17 Referred By: Janet Miranda Date of Intervention: 06/15/2025 Time of Intervention: 14:17 Reason for Referral: Mental Health History obtained from: Mother of baby (MOB), father of baby (FOB; Mihir, age 35) and review of medical records. ? Household composition: MOB, FOB, MOB?s 11-year-old daughter Eleazar Rogel and MOB and FOB?s son, Reza, born on 06/14/2025. Patient's parent/guardian status: ??MOB and FOB have been together for over 4 years and have been for 1 and a half years. MOB denied any previous or current issues of domestic violence and described a positive relationship with the FOB. FOB has 3 other children: 18-year-old son Tiburcio, 12-year-old son Abdelrahman (FOB had to get help spelling name) and when FOB fell silent, the MOB identified 10-year-old Jenny as the last child for the FOB. It almost appeared as though the FOB was trying to think of it. ?FOB denied any of his children living with him and also denied having shared custody. ?MOB reported that her 11-year-old daughter visits with her father once a week and also denied having shared custody. Medical History: : 3, Para, now 2. MOB received routine care beginning at 7weeks and 5 days. Apgars: 8 and 9. Weight: 8lbs, 6oz. Biomechanical Engineer: Dr. Castellano. Educational Status: MOB and FOB denied any issues with reading, writing or learning comprehension. MOB earned her bachelor?s degree in social work and the FOB earned his high school diploma. Financial Status: MOB and FOB reported that their income is sufficient to meet the needs of their family at this time. MOB and FOB both work full-time. ? Infant Supplies: MOB and FOB reported they have the supplies they need for baby at this time including but not limited to: Car seat, bassinet, crib, pack-n-play, diapers, bottles, breast pump and clothing. Childcare/Caregiver(s): MOB reported that she is taking 12 weeks of FMLA and after that, will be cared for by an in-home flatwork tier. Transportation: Both MOB and FOB are licensed drivers and have a reliable vehicle to get baby to and from all medical appointments. MOB and FOB denied any issues/barriers to transportation at this time. Programs/Agencies Involved: Denied any previous or current agency involvement. Children Services/Legal Issues: MOB and FOB denied any previous or current Children Services and/or legal involvement. Behavioral Health Issues: None reported/denied. Mental Health History: ??MOB has a history of anxiety, depression and post- anxiety. MOB reported she used to be on medication, stopped the medication during the and has intentions of resuming medication now that she has delivered . MOB reported she has discussed the safety of taking medication while with her doctor. MOB described her systems as currently being managed. FOB stated he has ?a little? PTSD which is mostly triggered by fireworks as the FOB is a . FOB reported his symptoms are otherwise managed at this time and denied a need for medication. Fire Loss Prevention Engineer administered the [place] Depression Scale (EPDS) with the MOB during the time social research assistant met with the MOB alone and her score was a 5. Fire Loss Prevention Engineer provided education on what the score meant which the FOB verbalized he understood. Substance Use History:?? MOB and FOB denied a history or current drug and/or alcohol abuse. ? Family History: MOB?s side of the family: father, and paternal grandmother have a history of bi-polar and MOB?s mother and maternal grandmother have a history of anxiety. MOB also reported her father has a history of abusing ?pills?. FOB?s side of the family: mother has a history of anxiety and his father and half-sister have a history of alcoholism. FOB reported his half-sister of alcoholism. ?? Drug Screens: None obtained for the MOB and/or baby during the time of this admission. Family/Social Stressors:?? Denied. Support Systems:? MOB and the FOB identified each other as their biggest supports as well as both of their mothers. Depression/Shaken Baby/Safe Sleeping: Fire Loss Prevention Engineer provided verbal and written education on PPD, increased risk factors for PPD, Safe Sleeping and Shaken Baby.? MOB and FOB both verbalized an understanding.??? ASSESSMENT: MOB and FOB provided consent to social work visit. Upon arrival, the MOB was getting into her hospital bed and the FOB was sitting in a nearby chair holding and feeding . MOB and FOB were both very cooperative and engaged although the MOB kept talking about how exhausted she was and how very little sleep she?s had over the past few days. Fire Loss Prevention Engineer observed positive interaction between the MOB and the FOB as well as with the MOB and FOB towards . During the time the FOB was holding , he was observed to be gentle and attentive as was the MOB after the FOB handed the MOB as he was leaving the room so social research assistant to talk to the MOB alone. ??At the end of the assessment, Fire Loss Prevention Engineer requested to speak with the MOB alone, which she and the FOB were both agreeable to. MOB reported feeling safe in her home and denied any previous or current domestic violence, unmanaged mental health issues either with herself or with the FOB, and also denied any concerns with any drug or alcohol abuse either with herself or with the FOB as well as any unmanaged mental health concerns. Safe Plan of Care for related to substance use: N/A PLAN: For MOB and baby to be discharged when medically ready. No other services requested or indicated. Radha Arvizu, MEDICAL LABORATORY TECHNOLOGIST, ZIPPER TRIMMER
[2025-06-15 14:31] VITALS: BP 128/74; PULSE 85; RESP 16; TEMP 36.3; O2SAT 98
[2025-06-19 06:39] LABS: Pathology Specimen OB SEE PATHOLOGY REPORT
== END 2025-06-15 16:40 | disposition home or self-care (01) | DRG 784 ==
PROVIDERS: Advanced Practice Midwife; Admitting Provider Obstetrics & Gynecology; PCP Family Medicine; Visit Provider Obstetrics & Gynecology
PROC: 10D00Z1 Extraction of Products of Conception, Low, Open Approach (ICD-10-PCS; CPT 59514; principal; 2025-06-14 07:00)
DX: O24.420 Gestational diabetes mellitus in childbirth, diet controlled (principal); D62 Acute posthemorrhagic anemia; F41.9 Anxiety disorder, unspecified; O99.344 Other mental disorders complicating childbirth; O90.81 Anemia of the puerperium; Z79.899 Other long term (current) drug therapy; Z79.82 Long term (current) use of aspirin; Z87.891 Personal history of nicotine dependence; Z30.2 Encounter for sterilization; Z87.59 Personal history of other complications of pregnancy, childbirth and the puerperium; Z37.0 Single live birth; Z3A.39 39 weeks gestation of pregnancy
CPT/HCPCS: 36415; 59025; 59050; 80053; 82570; 82962; 84156; 84550; 85025; 85027; 86780; 86850; 86900; 86901; 88302; 99221; A4216; G0378; J2405